=== PATIENT | male | born 1950 | race Caucasian/White ===

== ENCOUNTER → 2018-07-31 | Outpatient (REF) ==
[~2018-07-31] MED LIST: ASP81TEC PO; ATOR40TA PO; FINA5TAB6 PO; FISH OIL LIQUID PO; PRAV80TA2 PO; PRV20T PO; TRIA1CAP4 PO
--- NOTE | 2018-07-31 11:39 | Diagnostic Imaging Report ---
INDICATION: Injury to the left hand. TIME OF EXAM: 11:43 a.m. Three views of the left hand were obtained. In particular, the second MCP joint as well as the PIP joint of second finger are unremarkable. Carpus is unremarkable. Soft tissues are unremarkable. No fractures are seen. IMPRESSION: No acute bony abnormality is detected. Dictated by: Dictated on workstation # [id number]
== END | disposition home or self-care (01) ==
LOC: RAD 11:09
PROVIDERS: ATTEND Nurse Practitioner Family
CPT/HCPCS: 73130

== ENCOUNTER 2022-11-23 20:55 | Observation (INO) | payer MEDICARE, OTHER ==
[~2022-11-23] VITALS: Ht 185.4 cm; Wt 94.0 kg
--- NOTE | 2022-11-23 22:27 | ED General ---
General Chief Complaint: Neurological Problems Stated Complaint: WEAKNESSS Nursing Triage Note: Pt presents with increased weakness over the past 2 days. Pt arrived via wheelchair, friend with him states that they went to a farm show yesterday and he was able to walk around on his own. Today he is not able to stand unassisted. Pt also reports a new onset of incontinence that started about 2 weeks ago. Pt has hx of parkinsons and states he did not take his meds over the past couple of days due to not wanting to be "slowed down" while at the farm show. Pt's friend also states that he may have early dementia. Source of Information: Patient, Other (friend) Exam Limitations: No Limitations History of Present Illness Date Seen by Provider: November 23, 2022 Time Seen by Provider: 22:11 Initial Comments Brought here by a friend who reports that he has had increasing weakness over the last 2 days. The friend picked him up to take him to a steam show. 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 When the friend picked him up, he was able to walk around the do things on his own just fine but today he began to become progressively weak. Patient does have history of Parkinson's disease. During the course of the interview, patient admits that he has not been taking his medications because he did not want to be worried about an alarm on his watch to take the medicines and that includes his typical Parkinson's medicines. Reports eating okay and drinking okay. Does have history of urinary problems and does take medications for that. He has not had any of his Parkinson medicine today. Denies fever or chills. Denies nausea, vomiting, chest pain or breathing problems. Timing/Duration: 24 Hours, Getting Worse Severity: Moderate Associated Systoms: No Fever/Chills, No Nausea/Vomiting, No Shortness of Air; Weakness Allergies and Home Medications Allergies Coded Allergies: Penicillins (Verified Allergy, 06/05/12) Patient Home Medication List Home Medication List Reviewed: Yes Aspirin (Aspirin Ec 81 Mg) 81 Mg Tabec, 81 MG PO DAILY, (Reported) Entered as Reported by: MISTI CARROLL on 06/06/12 1137 Atorvastatin Calcium (Lipitor 40MG) 40 Mg Tablet, 40 MG PO HS, (Reported) Entered as Reported by: MISTI CARROLL on 06/06/12 1137 Finasteride (Finasteride) 5 Mg Tablet, 5 MG PO DAILY, (Reported) Entered as Reported by: BRENDA KLINE on 06/05/12 0953 Triamterene/Hydrochlorothiazid (Triamterene-Hctz 37.5-25 Mg Cp) 1 Each Capsule, 1 CAP PO DAILY, (Reported) Entered as Reported by: BRENDA KLINE on 06/05/12 0954 [Fish Oil Liquid] , 2 TSP PO DAILY, (Reported) Entered as Reported by: MISTI CARROLL on 06/06/12 1137 Review of Systems Review of Systems Constitutional: see HPI; No chills, No fever EENTM: no symptoms reported Respiratory: No cough, No short of breath Cardiovascular: no symptoms reported Gastrointestinal: No nausea, No vomiting Musculoskeletal: No back pain; muscle weakness Skin: no symptoms reported Psychiatric/Neurological: Weakness, Other (Some confusion reported by the friend) Past Ianazat-Aoxctc-Taskrv Hx Patient Social History Tobacco Use?: No Immunizations Up To Date Influenza Vaccine Up-to-Date: Yes; Up-to-Date Past Medical History Respiratory: No Cardiac: Yes High Cholesterol, Hypertension Neurological: Yes Parkinson's Disease Genitourinary: Yes Prostate Problems Family Medical History Reviewed and Corrections made Physical Exam Vital Signs Vital Signs - First Documented 11/23/22 22:03 Temp 36.6 Pulse 83 Resp 18 B/P (MAP) 143/86 (105) Capillary Refill : Less Than 3 Seconds Height, Weight, BMI Height: '" Weight: lbs. oz. kg; BMI Method: General Appearance: No Apparent Distress, WD/WN, Other (Weak appearing) HEENT: PERRL/EOMI, Pharynx Normal Neck: Non Tender, Supple Respiratory: Lungs Clear, Normal Breath Sounds Cardiovascular: Regular Rate, Rhythm, No Murmur Gastrointestinal: Non Tender, Soft Back: Normal Inspection, No CVA Tenderness, No Vertebral Tenderness Extremity: Other (Tremors to the upper extremities and appears weak and has weakness of all 4 extremities) Neurologic/Psychiatric: Alert, Other (Answer questions to person, place has some confusion with respect to time and situation.) Skin: Normal Color, Warm/Dry Progress/Results/Core Measures Suspected Sepsis SIRS Temperature: Pulse: 83 Respiratory Rate: 18 Laboratory Tests 11/23/22 22:49: White Blood Count 7.7 Blood Pressure 143 /86 Mean: 105 Laboratory Tests 11/23/22 22:49: Creatinine 1.17, Platelet Count 159, Total Bilirubin 0.8 Results/Orders Lab Results Laboratory Tests Test 11/23/22 22:49 11/24/22 02:08 Range/Units White Blood Count 7.7 4.3-11.0 10^3/uL Red Blood Count 4.73 4.30-5.52 10^6/uL Hemoglobin 14.6 13.3-17.7 g/dL Hematocrit 42 40-54 % Mean Corpuscular Volume 89 80-99 fL Mean Corpuscular Hemoglobin 31 25-34 pg Mean Corpuscular Hemoglobin Concent 35 32-36 g/dL Red Cell Distribution Width 13.0 10.0-14.5 % Platelet Count 159 130-400 10^3/uL Mean Platelet Volume 10.9 9.0-12.2 fL Immature Granulocyte % (Auto) 0 % Neutrophils (%) (Auto) 68 42-75 % Lymphocytes (%) (Auto) 19 12-44 % Monocytes (%) (Auto) 12 0-12 % Eosinophils (%) (Auto) 0 0-10 % Basophils (%) (Auto) 1 0-10 % Neutrophils # (Auto) 5.3 1.8-7.8 10^3/uL Lymphocytes # (Auto) 1.5 1.0-4.0 10^3/uL Monocytes # (Auto) 0.9 0.0-1.0 10^3/uL Eosinophils # (Auto) 0.0 0.0-0.3 10^3/uL Basophils # (Auto) 0.0 0.0-0.1 10^3/uL Immature Granulocyte # (Auto) 0.0 0.0-0.1 10^3/uL Sodium Level 144 135-145 MMOL/L Potassium Level 3.7 3.6-5.0 MMOL/L Chloride Level 109 H 98-107 MMOL/L Carbon Dioxide Level 17 L 21-32 MMOL/L Anion Gap 18 H 5-14 MMOL/L Blood Urea Nitrogen 18 7-18 MG/DL Creatinine 1.17 0.60-1.30 MG/DL Estimat Glomerular Filtration Rate 67 BUN/Creatinine Ratio 15 Glucose Level 101 70-105 MG/DL Calcium Level 9.3 8.5-10.1 MG/DL Corrected Calcium 9.2 8.5-10.1 MG/DL Magnesium Level 1.6 1.6-2.4 MG/DL Total Bilirubin 0.8 0.1-1.0 MG/DL Aspartate Amino Transf (AST/SGOT) 31 5-34 U/L Alanine Aminotransferase (ALT/SGPT) 19 0-55 U/L Alkaline Phosphatase 63 40-136 U/L Troponin I < 0.028 <0.028 NG/ML C-Reactive Protein High Sensitivity 0.07 0.00-0.50 MG/DL Total Protein 7.0 6.4-8.2 GM/DL Albumin 4.1 3.2-4.5 GM/DL Urine Color YELLOW Urine Clarity CLEAR Urine pH 6.0 5-9 Urine Specific [place] >=1.030 1.016-1.022 Urine Protein TRACE H NEGATIVE Urine Glucose (UA) NEGATIVE NEGATIVE Urine Ketones TRACE H NEGATIVE Urine Nitrite NEGATIVE NEGATIVE Urine Bilirubin 1+ H NEGATIVE Urine Urobilinogen 1.0 < = 1.0 MG/DL Urine Leukocyte Esterase NEGATIVE NEGATIVE Urine RBC (Auto) 3+ H NEGATIVE Urine RBC 50-100 H /HPF Urine WBC 0-2 /HPF Urine Crystals NONE /LPF Urine Bacteria NEGATIVE /HPF Urine Casts NONE /LPF Urine Mucus SMALL H /LPF Urine Culture Indicated NO My Orders Orders - KATY GONZALEZ MD Chest 1 View, Ap/Pa Only (11/23/22 22:25) Cbc With Automated Diff (11/23/22 22:25) Comprehensive Metabolic Panel (11/23/22 22:25) Hs C Reactive Protein (11/23/22 22:25) Magnesium (11/23/22 22:25) Troponin I Waqar (11/23/22 22:25) Ua Culture If Indicated (11/23/22 22:25) Ed Iv/Invasive Line Start (11/23/22 22:25) Ns Iv 500 Ml (Sodium Chloride 0.9%) (11/23/22 22:30) Medications Given in ED Current Medications Medications Dose Ordered Sig/Silvina Route Start Time Stop Time Status Last Admin Dose Admin Sodium Chloride 500 ml @ 0 mls/hr Q0M ONCE IV 11/23/22 22:30 11/23/22 22:31 DC 11/23/22 22:54 0 MLS/HR Vital Signs/I&O 11/23/22 22:03 Temp 36.6 Pulse 83 Resp 18 B/P (MAP) 143/86 (105) Capillary Refill : Less Than 3 Seconds Blood Pressure Mean: 105 Progress Note : Progress Note Seen and evaluated. Patient has been off of his Parkinson's medicines and this is likely part of the problem. We will check labs including CBC, CMP, troponin and magnesium and get EKG and chest x-ray. We will also check UA. Normal saline 500 mL bolus ordered. I will give him his normal dose of his Parkinson medicine from his bottle now which is the carbidopa levodopa 25/100 and we will give propranolol 30 mg p.o. now out of his bottle as well. He has 2 more prescriptions for tamsulosin and Myrbetriq and we will hold those for right now. Patient is very weak appearing. We will see how he does with fluids and his medication. Very likely admission at least for observation due to being off his his Parkinson's meds. Differential diagnosis includes dehydration, electrolyte abnormality, Parkinson's disease flare 0005: Chest x-ray reviewed and shows no obvious infiltrate on my interpretation. CBC and CMP showed no gross significant abnormalities and troponin is negative. We are still pending UA. 0302: UA does show ketones and blood although his cath UA. He does have known prostate problems. Overall he is doing a little bi t better after IV fluids but I believe he needs further fluid administration and continuation of his Parkinson med and we should see improvement. I did discuss the case with Dr. Spivey, on-call for [facility] who accepts patient for admission, observation status. Discussed with patient who agrees with plan. Patient requests full code. ECG Initial ECG Impression Date: November 23, 2022 Initial ECG Impression Time: 22:33 Initial ECG Rate: 93 Comment Sinus rhythm with left axis deviation. Normal W[place] interval and normal QRS duration. No evidence of ST elevation [place]. Interpreted by me. Diagnostic Imaging Diagonstic Imaging: Xray Plain Films/CT/US/NM/MRI: chest Comments No obvious infiltrate on my interpretation. Departure Communication (Admissions) Time/Spoke to Admitting Phy: 02:55 Impression Primary Impression: Generalized weakness Additional Impression: Parkinsons disease Disposition: ADMITTED INPATIENT Condition: Stable Admissions Decision to Admit Reason: Admit from ER (General) Decision to Admit/Date: November 24, 2022 Time/Decision to Admit Time: 02:55 Departure-Patient Inst. Referrals: JIN GRAVES DO (PCP/Family) Primary Care Physician KATY GONZALEZ MD November 23, 2022 22:27
[2022-11-23] MEDS ORDERED: morphine IMMEDIATE RELEASE 15 MG TABLET PO SCH (22:30)
[2022-11-23] MEDS ORDERED: NS IV 500 ML 500 ML IV ONE (22:30)
[2022-11-23 22:53] LABS: BASOPHILS % (AUTO) 1 % (0-10); EOSINOPHILS % (AUTO) 0 % (0-10); HEMATOCRIT 42 % (40-54); HEMOGLOBIN 14.6 g/dL (13.3-17.7); LYMPHOCYTES # (AUTO) 1.5 10^3/uL (1.0-4.0); LYMPHOCYTES % (AUTO) 19 % (12-44); MEAN CORPUSCULAR HEMOGLOBIN 31 pg (25-34); MEAN CORPUSCULAR HGB CONC 35 g/dL (32-36); MEAN CORPUSCULAR VOLUME 89 fL (80-99); MEAN PLATELET VOLUME 10.9 fL (9.0-12.2); MONOCYTES # (AUTO) 0.9 10^3/uL (0.0-1.0); MONOCYTES % (AUTO) 12 % (0-12); NEUTROPHILS # (AUTO) 5.3 10^3/uL (1.8-7.8); NEUTROPHILS % (AUTO) 68 % (42-75); PLATELET COUNT 159 10^3/uL (130-400); WHITE BLOOD COUNT 7.7 10^3/uL (4.3-11.0)
[2022-11-23 23:06] LABS: ALBUMIN 4.1 GM/DL (3.2-4.5); CHLORIDE 109 MMOL/L (98-107); POTASSIUM 3.7 MMOL/L (3.6-5.0); SODIUM 144 MMOL/L (135-145)
[2022-11-23 23:07] LABS: CALCIUM 9.3 MG/DL (8.5-10.1)
[2022-11-23 23:08] LABS: GLUCOSE 101 MG/DL (70-105)
[2022-11-23 23:10] LABS: BILIRUBIN,TOTAL 0.8 MG/DL (0.1-1.0); CARBON DIOXIDE 17 MMOL/L (21-32)
[2022-11-23 23:12] LABS: ALKALINE PHOSPHATASE 63 U/L (40-136); CREATININE SERUM 1.17 MG/DL (0.60-1.30); GFR ESTIMATED 67
[2022-11-23 23:13] LABS: BUN/CREATININE RATIO 15
[2022-11-23 23:15] LABS: ALANINE AMINOTRANSFERASE 19 U/L (0-55); MAGNESIUM 1.6 MG/DL (1.6-2.4)
[2022-11-24] VITALS (7 sets, daily range): BP systolic 112–143; BP diastolic 68–86
[2022-11-24 02:13] LABS: CLARITY,URINE CLEAR; COLOR,URINE YELLOW; GLUCOSE, URINE (UA) NEGATIVE (NEGATIVE); KETONES,URINE TRACE (NEGATIVE); LEUKOCYTE ESTERASE ,URINE NEGATIVE (NEGATIVE); NITRITE,URINE NEGATIVE (NEGATIVE); PROTEIN,URINE TRACE (NEGATIVE)
[2022-11-24 02:27] LABS: BACTERIA,URINE NEGATIVE /HPF; BILIRUBIN,URINE 1+ (NEGATIVE); RBC,URINE 50-100 /HPF; WBC,URINE 0-2 /HPF
[2022-11-24] MEDS ORDERED: ONDANSETRON 4 MG (ZOFRAN) ORAL DISSOLVE TAB PO PRN ×2 (04:30→11:15)
[2022-11-24] MEDS ORDERED: NALOXONE 0.4 MG/ML 1 ML (NARCAN) VIAL IV PRN (04:30)
[2022-11-24] MEDS ORDERED: diphenhydrAMINE 50 MG/ML INJ (BENADRYL) IVP PRN ×2 (04:30→11:15)
[2022-11-24] MEDS ORDERED: ONDANSETRON 4 MG/2 ML (SDV) Z0FRAN IV PRN ×2 (04:30→11:15)
[2022-11-24] MEDS ORDERED: MILK OF MAGNESIA 400 MG/5 ML 30 ML UDC PO PRN ×2 (04:30→11:15)
[2022-11-24] MEDS ORDERED: ANTACID SUSP 30 ML UDC (MYLANTA) PO PRN ×2 (04:30→11:15)
[2022-11-24] MEDS ORDERED: CALCIUM CARBONATE 500 MG (TUMS) TAB.CHEW PO PRN ×2 (04:30→11:15)
[2022-11-24] MEDS ORDERED: LACTULOSE SYRUP 10GM/15ML (ENULOSE) 30ML UDC PO PRN ×2 (04:30→11:15)
[2022-11-24] MEDS ORDERED: NS IV 1000 ML 1,000 ML IV SCH (04:30)
[2022-11-24] MEDS ORDERED: BISACODYL 10 MG SUPP (DULCOLAX) PR PRN ×2 (04:30→11:15)
[2022-11-24] MEDS ORDERED: diphenhydrAMINE 25 MG TAB (BENADRYL) PO PRN ×2 (04:30→11:15)
[2022-11-24] MEDS ORDERED: polyethylene glycoL POWDER 17 GM (MIRALAX) PACK PO PRN ×2 (04:30→11:15)
--- NOTE | 2022-11-24 07:02 | History & Physical-Hospitalist ---
History of Present Illness HPI/Chief Complaint CC: Weakness HPI: This is a 72yoWM clinic patient of [facility] who presented to the ER due to severe weakness. Apparently he has Parkinson's and dementia and did not take his PD meds due to not wanting to be interrupted at the farm show to take his scheduled meds. Currently he is resting in his chair. Labs stable. He will need PT OT and restating his regular PD meds but he does not have a list and unable to access a list from pharmacy.. Source: patient Exam Limitations: clinical condition Date Seen 11/24/22 Time Seen by a Provider: 11:00 Attending Physician Jersey Hassan DO PCP Admitting Physician: Manuela Spivey DO Attending Physician: Manuela Spivey DO Referring Physician Date of Admission November 24, 2022 at 03:32 Home Medications & Allergies Home Medications Reviewed patient Home Medication Reconciliation performed by pharmacy medication reconciliations electronics engineering technician and/or nursing. Patients Allergies have been reviewed. Allergies Allergies Coded Allergies Penicillins (Verified Allergy, Unknown, 11/24/22) Past Mtajtbv-Xkxjdd-Ozfqcr Hx Patient Social History Marrital Status: single Employed/Student: retired Tobacco Use?: No Use of E-Cig and/or Vaping dev: No Substance use?: No Alcohol Use?: No Pt feels they are or have been: No Immunizations Up To Date Date of Influenza Vaccine: May 05, 2012 Current Status Advance Directives: No Communicates: Verbally Primary Language: Angolan Preferred Spoken Language: Angolan Is interpretation needed?: No Sensory deficits: Vision impairment Implanted or Applied Medical D: None Past Medical History High Cholesterol, Hypertension Parkinson's Disease Prostate Problems Family Medical History Reviewed and Corrections made Review of Systems Constitutional: see HPI, malaise, weakness Physical Exam Physical Exam Vital Signs Vital Signs - First Documented 11/23/22 11/24/22 11/24/22 22:03 04:41 11:23 Temp 36.6 Pulse 83 Resp 18 B/P (MAP) 143/86 (105) Pulse Ox 95 O2 Delivery Room Air FiO2 21 Capillary Refill : Less Than 3 Seconds Height, Weight, BMI Height: '" Weight: lbs. oz. kg; 27.31 BMI Method: General Appearance: No Apparent Distress, Chronically ill Eyes: Right Eye Normal Inspection, Right Eye PERRL HEENT: PERRL/EOMI, Normal ENT Inspection, Pharynx Normal, Moist Mucous Membranes Neck: Full Range of Motion, Normal Inspection, Non Tender Respiratory: Chest Non Tender, Lungs Clear, Normal Breath Sounds, No Accessory Muscle Use, No Respiratory Distress Cardiovascular: Regular Rate, Rhythm, No Edema, No Gallop, No JVD, No Murmur, Normal Peripheral Pulses Gastrointestinal: Normal Bowel Sounds, No Organomegaly, No Pulsatile Mass, Non Tender, Soft Back: Normal Inspection, No CVA Tenderness, No Vertebral Tenderness Extremity: Normal Capillary Refill, Normal Inspection, Normal Range of Motion, Non Tender, No Calf Tenderness, No Pedal Edema Neurologic/Psychiatric: Alert, Abnormal Gait, Depressed Affect, Disoriented, Motor Weakness (2/5 all ext) Skin: Normal Color, Warm/Dry Lymphatic: No Adenopathy Results Results/Procedures Labs Laboratory Tests 11/23/22 22:49 Patient resulted labs reviewed. Assessment/Plan Admission Diagnosis Assessment: Severe weakness Parkinson's disease HTN HLP Plan: PT OT Placement? Home meds Admission Status: Observation MANUELA SPIVEY DO November 24, 2022 06:53
--- NOTE | 2022-11-24 07:19 | Diagnostic Imaging Report ---
INDICATION: Weakness COMPARISON: None available. TECHNIQUE: Single radiograph of the chest dated 11/23/2022. FINDINGS: The cardiac silhouette is within normal limits in size. No significant pulmonary vascular congestion. Low lung volumes without focal pulmonary opacity. No significant pleural effusion. No pneumothorax. No acute osseous abnormality. IMPRESSION: Low lung volumes without superimposed acute cardiopulmonary abnormality. Agree with preliminary interpretation. Dictated by: Dictated on workstation # [id number]
[2022-11-24] MEDS: SENNOSIDES 8.6 MG (SENOKOT) TAB PO SCH ×2 (08:08→21:18)
[2022-11-24] MEDS: DOCUSATE SODIUM 100 MG (COLACE) CAP PO SCH ×2 (08:08→21:18)
[2022-11-24] MEDS: SINEMET 25/100 (CARBIDOPA/LEVODOPA) TAB PO SCH ×3 (08:08→17:16)
[2022-11-24] MEDS: PROPRANOLOL 20 MG (INDERAL) TABLET PO SCH ×2 (08:08→21:18)
[2022-11-24] MEDS ORDERED: MELATONIN 3 MG TABLET PO PRN (11:15)
[2022-11-24] MEDS ORDERED: ACETAMINOPHEN 325 MG TABLET PO PRN (11:15)
[2022-11-24] MEDS ORDERED: HYDROmorphone 2 MG/ML VIAL (DILAUDID) IV PRN (11:15)
[2022-11-24] MEDS: ACETAMINOPHEN 325 MG TABLET PO PRN (12:05)
[2022-11-24] MEDS: ENOXAPARIN 40 MG/0.4 ML (LOVENOX) SYR SC SCH (12:09)
[2022-11-24] MEDS: TAMSULOSIN 0.4 MG (FLOMAX) CAP PO SCH (17:17)
[2022-11-24] MEDS ORDERED: SENNOSIDES 8.6 MG (SENOKOT) TAB PO SCH (21:00)
[2022-11-24] MEDS ORDERED: DOCUSATE SODIUM 100 MG (COLACE) CAP PO SCH (21:00)
[2022-11-25 04:30] VITALS: BP 137/81
[2022-11-25 05:51] LABS: BASOPHILS % (AUTO) 0 % (0-10); EOSINOPHILS # (AUTO) 0.1 10^3/uL (0.0-0.3); EOSINOPHILS % (AUTO) 1 % (0-10); HEMATOCRIT 46 % (40-54); HEMOGLOBIN 15.3 g/dL (13.3-17.7); LYMPHOCYTES # (AUTO) 1.1 10^3/uL (1.0-4.0); LYMPHOCYTES % (AUTO) 12 % (12-44); MEAN CORPUSCULAR HEMOGLOBIN 31 pg (25-34); MEAN CORPUSCULAR HGB CONC 34 g/dL (32-36); MEAN CORPUSCULAR VOLUME 91 fL (80-99); MEAN PLATELET VOLUME 11.5 fL (9.0-12.2); MONOCYTES # (AUTO) 0.7 10^3/uL (0.0-1.0); MONOCYTES % (AUTO) 8 % (0-12); NEUTROPHILS # (AUTO) 7.3 10^3/uL (1.8-7.8); NEUTROPHILS % (AUTO) 79 % (42-75); PLATELET COUNT 146 10^3/uL (130-400); WHITE BLOOD COUNT 9.2 10^3/uL (4.3-11.0)
[2022-11-25 06:00] LABS: ALBUMIN 3.9 GM/DL (3.2-4.5); POTASSIUM 3.9 MMOL/L (3.6-5.0)
[2022-11-25 06:01] LABS: CALCIUM 9.3 MG/DL (8.5-10.1)
[2022-11-25 06:02] LABS: TOTAL PROTEIN 6.6 GM/DL (6.4-8.2)
[2022-11-25 06:04] LABS: BILIRUBIN,TOTAL 0.9 MG/DL (0.1-1.0)
[2022-11-25 06:06] LABS: CREATININE SERUM 1.16 MG/DL (0.60-1.30)
[2022-11-25] MEDS: DOCUSATE SODIUM 100 MG (COLACE) CAP PO SCH ×2 (08:41→20:43)
[2022-11-25] MEDS: SENNOSIDES 8.6 MG (SENOKOT) TAB PO SCH ×2 (08:41→20:43)
[2022-11-25] MEDS: SINEMET 25/100 (CARBIDOPA/LEVODOPA) TAB PO SCH ×3 (08:41→17:12)
[2022-11-25] MEDS: PROPRANOLOL 20 MG (INDERAL) TABLET PO SCH ×2 (08:42→20:43)
[2022-11-25 08:45] VITALS: BP 137/75
--- NOTE | 2022-11-25 10:58 | Occupational Therapy Eval ---
OT Evaluation-General/PLF Medical Diagnosis Admission Date November 24, 2022 at 03:32 Medical Diagnosis: PD exacerbation Onset Date: November 24, 2022 Therapy Diagnosis Therapy Diagnosis: weakness Precautions Precautions/Isolations: Fall Prevention, Standard Precautions Weight Bear Status Weight Bearing Restriction: Weight Bearing/Tolerated Referral Referral Reason: Activity Tolerance, Self Care, Evaluation/Treatment Medical History Pertinent Medical History: Parkinson's Current History his is a 72yoWM clinic patient of [facility] who presented to the ER due to severe weakness. Apparently he has Parkinson's and dementia and did not take his PD meds due to not wanting to be interrupted at the farm show to take his scheduled meds. Reviewed History: No Social History Home: Single Level Current Living Status: Alone Entry Into Home: Stairs With Railing ADL-Prior Level of Function SCALE: Activities may be completed with or without assistive devices. 6-Cqqqccuzhd-wyyhieg completes the activity by him/herself with no assistance from a helper. 5-Set-up or Clean-up Assistance-helper sets up or cleans up; patient completes activity. [place] assists only prior to or following the activity. 4-Supervision or Touching Assistance-helper provides verbal cues and/or touching/steadying and/or contact guard assistance as patient completes activity. Assistance may be provided throughout the activity or intermittently. 3-Partial/Moderate Assistance-helper does LESS THAN HALF the effort. [place] lifts, holds or supports trunk or limbs, but provides less than half the effort. 2-Substantial/Maximal Assistance-helper does MORE THAN HALF the effort. [place] lifts or holds trunk or limbs and provides more than half the effort. 2-Noiggzeyc-ngnyov does ALL the effort. Patient does none of the effort to complete the activity. Or, the assistance of 2 or more helpers is required for the patient to complete the activity. If activity was not attempted, code reason: 7-Patient Refused. 9-Not Applicable-not attempted and the patient did not perform the activity before the current illness, exacerbation or injury. 10-Not Attempted due to Environmental Limitations-(lack of equipment, weather restraints, etc.). 88-Not Attempted due to Medical Conditions or Safety Concerns. Self Care: Independent Functional Cognition: Independent DME/Equipment Comments walker Drive Self: Yes OT Current Status Subjective Agreeable to OT, slow to respond Mental Status/Objective Patient Orientation: Person, Situation Current Upper Extremity ROM B UE WFLs Upper Extremity Coordination bradykinesia Upper Extremity Strength +3/5 BUE, senior marketing engineer 5/5 ADL-Treatment Eating (QC): 5 Oral Hygiene (QC): 4 Shower/Bathe Self (QC): 2 Upper Body Dressing (QC): 3 Lower Body Dressing (QC): 2 On/Off Footwear (QC): 1 Toileting Hygiene (QC): 2 Education OT Patient Education: Correct positioning, Disease process, Modified ADL techniques, Progress toward Goal/Update tx plan, Purpose of tx/functional activities, Safety issues, Transfer techniques, Use of adapted equipment Teaching Recipient: Patient Teaching Methods: Demonstration, Discussion Response to Teaching: Reinforcement Needed OT Fpc Goals Fpc Goals Time Frame: December 07, 2022 Eating (QC): 6 Oral Hygiene (QC): 6 Toileting Hygiene (QC): 6 Shower/Bathe Self (QC): 6 Upper Body Dressing (QC): 6 Lower Body Dressing (QC): 6 On/Off Footwear (QC): 6 1=Demonstrate adherence to instructed precautions during ADL tasks. 2=Patient will verbalize/demonstrate understanding of assistive devices/modifications for ADL. 3=Patient will improve strength/tolerance for activity to enable patient to perform ADL's. OT Education/Plan Problem List/Assessment Assessment: Decreased Activ Tolerance, Impaired Coordination, Impaired Funct Balance, Impaired Self-Care Skills Discharge Recommendations Plan/Recommendations: Continue POC Therapy Discharge Recommendati: Post Acute OT Treatment Plan/Plan of Care Treatment,Training & Education: Yes Patient would benefit from OT for education, treatment and training to promote independence in ADL's, mobility, safety and/or upper extremity function for ADL's. Plan of Care: ADL Retraining, Concurrent Therapy, Functional Mobility, Group Exercise/Act as Ind, UE Funct Exercise/Act, UE Neuromus Re-Ed/Coord Treatment Duration: December 07, 2022 Frequency: 3 times per week (3-5 times per week) Estimated Hrs Per Day: .25 hour per day Agreement: Yes Rehab Potential: Fair Time Start Time: 09:10 Stop Time: 09:28 DATE: November 25, 2022 Total Time Billed (hr/min): 18 Billed Treatment Time EVM 18 min KRISHAN JONES OT November 25, 2022 10:58
--- NOTE | 2022-11-25 11:09 | Physical Therapy Evaluation ---
PT Evaluation-General Medical Diagnosis Admission Date November 24, 2022 at 03:32 Medical Diagnosis: generalized weakness/Parkinson's Onset Date: November 24, 2022 Therapy Diagnosis Therapy Diagnosis: generalized weakness/debility Precautions Precautions/Isolations: Fall Prevention, Standard Precautions Referral Physician: Allyssa Reason for Referral: Evaluation/Treatment Medical History Pertinent Medical History: Dementia, HTN, Parkinson's Current History ER secondary to weakness Reviewed History: Yes Social History Home: Single Level Current Living Status: Alone Prior Prior Level of Function SCALE: Activities may be completed with or without assistive devices. 4-Qqoiwwlxys-exikppt completes the activity by him/herself with no assistance from a helper. 5-Set-up or Clean-up Assistance-helper sets up or cleans up; patient completes activity. [place] assists only prior to or following the activity. 4-Supervision or Touching Assistance-helper provides verbal cues and/or touching/steadying and/or contact guard assistance as patient completes activity. Assistance may be provided throughout the activity or intermittently. 3-Partial/Moderate Assistance-helper does LESS THAN HALF the effort. [place] lifts, holds or supports trunk or limbs, but provides less than half the effort. 2-Substantial/Maximal Assistance-helper does MORE THAN HALF the effort. [place] lifts or holds trunk or limbs and provides more than half the effort. 0-Ealyyxrxp-wckapa does ALL the effort. Patient does none of the effort to complete the activity. Or, the assistance of 2 or more helpers is required for the patient to complete the activity. If activity was not attempted, code reason: 7-Patient Refused. 9-Not Applicable-not attempted and the patient did not perform the activity before the current illness, exacerbation or injury. 10-Not Attempted due to Environmental Limitations-(lack of equipment, weather restraints, etc.). 88-Not Attempted due to Medical Conditions or Safety Concerns. Bed Mobility: 6 Transfers (B,C,W/C): 6 Gait: 6 Indoor Mobility (Ambulation): Independent Prior Devices Use: None drives (all information per patient) PT Evaluation-Current Subjective Patient agrees to PT. Objective Patient Orientation: Person ROM/Strength ROM Lower Extremities bilateral LE WFL Strength Lower Extremities 3/5 grossly bilateral LE all planes Integumentary/Posture Bladder Incontinence: Yes Posture trunk and bilateral knee flexed posture Neuromuscular (Tone, Coordination, Reflexes) tremors/ataxia/Parkinson's Sensory Vision: Wears Glasses Hearing: Functional Transfers Lying to Sitting/Side of Bed(Q: 2 Sit to Stand (QC): 2 Chair/Yvo-en-Sqyzt Xfer(QC): 3 Toilet Transfer (QC): 3 Gait Mode of Locomotion: Walk Anticipated Mode of Locomotion: Walk Walk 10 feet (QC): 3 Walk 50 ft with 2 Turns(QC): 3 Walk 150 ft (QC): 88 Distance: 50' Gait Assistive Device: FWW Comments/Gait Description Parkinson's gait/difficulty initiating sequence Balance Sitting Static: Fair Sitting Dynamic: Fair Standing Static: Poor Standing Dynamic: Poor Assessment/Needs Patient will benefit from skilled PT to address functional strength and mobility to improve current LOF. Patient demonstrates severely impaired mobility and Poor balance. Rehab Potential: Guarded PT Longterm Goals Longterm Goals PT Traffic Personnel Supervisor Goals Time Frame: December 14, 2022 Roll Left & Right (QC): 4 Sit to Lying (QC): 4 Lying-Sitting on Side/Bed(QC): 4 Sit to Stand (QC): 4 Chair/Njc-my-Uyuej Xfer(QC): 4 Toilet Transfer (QC): 4 Walk 10 feet (QC): 4 Walk 50ft with 2 Turns (QC): 4 Walk 150 ft (QC): 4 PT Plan Problem List Problem List: Activity Tolerance, Functional Strength, Safety, Balance, Gait, Transfer, Bed Mobility Treatment/Plan Treatment Plan: Continue Plan of Care Treatment Plan: Bed Mobility, Education, Functional Activity [place], Functional Strength, Gait, Safety, Therapeutic Exercise, Transfers Treatment Duration: December 14, 2022 Frequency: 6 times per week Estimated Hrs Per Day: .25 hour per day Time Time In: 910 Time Out: 928 DATE: November 25, 2022 Total Billed Treatment Time: 18 Total Billed Treatment 1 visit [facility] 18 min KOBE GAVIN PT November 25, 2022 11:09
[2022-11-25 11:26] VITALS: BP 117/65
[2022-11-25] MEDS: ENOXAPARIN 40 MG/0.4 ML (LOVENOX) SYR SC SCH (11:30)
--- NOTE | 2022-11-25 14:27 | Progress Note ---
Subjective Subjective/Events-last exam Patient states that he is feeling some better but still very weak. States that he normally does not need a walker at baseline. Tolerating PO diet. Review of Systems General: Fatigue Pulmonary: No Dyspnea, No Cough Cardiovascular: No: Chest Pain, Palpitations, Edema Gastrointestinal: No: Nausea, Vomiting, Abdominal Pain, Diarrhea, Constipation Neurological: Weakness, Incoordination; No: Confusion Objective Exam Last Set of Vital Signs Vital Signs Date Time Temp Pulse Resp B/P (MAP) Pulse Ox O2 Delivery O2 Flow Rate FiO2 11/25/22 11:26 37.4 74 19 117/65 (82) 94 Room Air 11/24/22 11:23 21 Capillary Refill : Less Than 3 Seconds I&O Intake and Output 11/25/22 00:00 Intake Total 1580 ml Output Total 780 ml Balance 800 ml Intake Oral 1100 ml IV Total 480 ml Output Urine Total 780 ml Daily Weight Change Yes, 14-23 lbs General: Alert, Oriented X3, Other (diffuse trimmers) Lungs: Clear to Auscultation, Normal Air Movement Heart: Regular Rate, No Murmurs Abdomen: Soft, No Tenderness Extremities: No Edema, No Tenderness/Swelling Neuro: Normal Speech, Cranial Nerves 3-12 NL Results/Procedures Lab Laboratory Tests 11/25/22 05:03: White Blood Count 9.2, Red Blood Count 5.00, Hemoglobin 15.3, Hematocrit 46, Mean Corpuscular Volume 91, Mean Corpuscular Hemoglobin 31, Mean Corpuscular H emoglobin Concent 34, Red Cell Distribution Width 13.0, Platelet Count 146, Mean Platelet Volume 11.5, Immature Granulocyte % (Auto) 0, Neutrophils (%) (Auto) 79H, Lymphocytes (%) (Auto) 12, Monocytes (%) (Auto) 8, Eosinophils (%) (Auto) 1, Basophils (%) (Auto) 0, Neutrophils # (Auto) 7.3, Lymphocytes # (Auto) 1.1, Monocytes # (Auto) 0.7, Eosinophils # (Auto) 0.1, Basophils # (Auto) 0.0, Immature Granulocyte # (Auto) 0.0, Sodium Level 144, Potassium Level 3.9, Chloride Level 109H, Carbon Dioxide Level 22, Anion Gap 13, Blood Urea Nitrogen 19H, Creatinine 1.16, Estimat Glomerular Filtration Rate 68, BUN/Creatinine Ratio 16, Glucose Level 104, Calcium Level 9.3, Corrected Calcium 9.4, Total Bilirubin 0.9, Aspartate Amino Transf (AST/SGOT) 49H, Alanine Aminotransferase (ALT/SGPT) 13, Alkaline Phosphatase 70, Total Protein 6.6, Albumin 3.9 Assessment/Plan Assessment/Plan (1) Generalized weakness Status: Acute Assessment & Plan: 11/25: IRF referral placed (2) Parkinsons disease Status: Chronic Assessment & Plan: 11/25: Restarted home meds (3) BPH (benign prostatic hyperplasia) Status: Chronic Assessment & Plan: 11/25: Restart home meds (4) HTN (hypertension) Status: Chronic (5) HLD (hyperlipidemia) Status: Chronic FANNIE PABLO MD November 25, 2022 14:27
[2022-11-25 15:55] VITALS: BP 124/73
[2022-11-25] MEDS ORDERED: PROP60TA17 PO (16:15)
[2022-11-25] MEDS ORDERED: MIRA25TA PO (16:15)
[2022-11-25] MEDS ORDERED: TMSL.4C PO (16:15)
[2022-11-25] MEDS ORDERED: LOVA20TA2 PO (16:15)
[2022-11-25] MEDS ORDERED: CARB1TAB32 PO (16:15)
[2022-11-25] MEDS ORDERED: LISI10TA25 PO (16:18)
[2022-11-25] MEDS: TAMSULOSIN 0.4 MG (FLOMAX) CAP PO SCH (17:12)
[2022-11-25 19:53] VITALS: BP 128/66
[2022-11-26] VITALS: BP 137/70
[2022-11-26 04:00] VITALS: BP 139/76
[2022-11-26 05:54] LABS: BASOPHILS % (AUTO) 0 % (0-10); HEMOGLOBIN 15.5 g/dL (13.3-17.7); MEAN CORPUSCULAR HEMOGLOBIN 31 pg (25-34)
[2022-11-26 05:56] LABS: EOSINOPHILS # (AUTO) 0.1 10^3/uL (0.0-0.3); EOSINOPHILS % (AUTO) 1 % (0-10); HEMATOCRIT 45 % (40-54); LYMPHOCYTES # (AUTO) 1.3 10^3/uL (1.0-4.0); LYMPHOCYTES % (AUTO) 19 % (12-44); MEAN CORPUSCULAR HGB CONC 34 g/dL (32-36); MEAN CORPUSCULAR VOLUME 91 fL (80-99); MEAN PLATELET VOLUME 11.3 fL (9.0-12.2); MONOCYTES # (AUTO) 0.7 10^3/uL (0.0-1.0); MONOCYTES % (AUTO) 10 % (0-12); NEUTROPHILS # (AUTO) 4.5 10^3/uL (1.8-7.8); NEUTROPHILS % (AUTO) 69 % (42-75); PLATELET COUNT 134 10^3/uL (130-400); WHITE BLOOD COUNT 6.6 10^3/uL (4.3-11.0)
[2022-11-26 06:00] LABS: SMEAR SCAN COMMENT YES
[2022-11-26 06:12] LABS: ALBUMIN 3.8 GM/DL (3.2-4.5); POTASSIUM 3.4 MMOL/L (3.6-5.0)
[2022-11-26 06:13] LABS: CALCIUM 9.2 MG/DL (8.5-10.1)
[2022-11-26 06:14] LABS: TOTAL PROTEIN 6.5 GM/DL (6.4-8.2)
[2022-11-26 06:16] LABS: BILIRUBIN,TOTAL 0.7 MG/DL (0.1-1.0)
[2022-11-26 06:18] LABS: CREATININE SERUM 1.06 MG/DL (0.60-1.30)
[2022-11-26] MEDS: SENNOSIDES 8.6 MG (SENOKOT) TAB PO SCH ×2 (08:03→20:04)
[2022-11-26] MEDS: DOCUSATE SODIUM 100 MG (COLACE) CAP PO SCH ×2 (08:03→20:04)
[2022-11-26] MEDS: PROPRANOLOL 20 MG (INDERAL) TABLET PO SCH ×2 (08:03→20:04)
[2022-11-26] MEDS: SINEMET 25/100 (CARBIDOPA/LEVODOPA) TAB PO SCH ×3 (08:03→18:13)
[2022-11-26 08:19] VITALS: BP 123/82
--- NOTE | 2022-11-26 10:52 | Physical Therapy Daily Note ---
PT Daily Note-Current Subjective Patient more alert and oriented on this date. Agrees to therapy. Pain Section J - Health Conditions 1. Rarely or not at all 2. Occasionally 3. Frequently 4. Almost constantly 8. Unable to answer Pain Effect on Sleep: 1 Pain Interference with Therapy: 1 Pain Interference w/Day-to-Day: 1 Mental Status Patient Orientation: Person Transfers SCALE: Activities may be completed with or without assistive devices. 2-Oeorhdxhxw-lmmmcsn completes the activity by him/herself with no assistance from a helper. 5-Set-up or Clean-up Assistance-helper sets up or cleans up; patient completes activity. [place] assists only prior to or following the activity. 4-Supervision or Touching Assistance-helper provides verbal cues and/or touching/steadying and/or contact guard assistance as patient completes acti vity. Assistance may be provided throughout the activity or intermittently. 3-Partial/Moderate Assistance-helper does LESS THAN HALF the effort. Garland lifts, holds or supports trunk or limbs, but provides less than half the effort. 2-Substantial/Maximal Assistance-helper does MORE THAN HALF the effort. [place] lifts or holds trunk or limbs and provides more than half the effort. 4-Lamtdbajp-hfdnri does ALL the effort. Patient does none of the effort to complete the activity. Or, the assistance of 2 or more helpers is required for the patient to complete the activity. If activity was not attempted, code reason: 7-Patient Refused. 9-Not Applicable-not attempted and the patient did not perform the activity before the current illness, exacerbation or injury. 10-Not Attempted due to Environmental Limitations-(lack of equipment, weather restraints, etc.). 88-Not Attempted due to Medical Conditions or Safety Concerns. Sit to Stand (QC): 3 Chair/Zxi-tx-Qmpub Xfer(QC): 3 Toilet Transfer (QC): 3 Gait Training Distance: 250' Walk 10 feet (QC): 3 Walk 50 ft with 2 Turns(QC): 3 Walk 150 ft (QC): 3 Gait Assistive Device: FWW VC's for gait sequence (Parkinson's)/improved step length and melina Exercises Standing: Dynamic Reaching Ex (at sink to brush teeth and hair with OT address ADL's), Weight shifts Assessment Patient much improved on this date. Continues to require min to mod assist with all functional mobility and dynamic/static standing balance with ADL exercises. Increase activity as tolerated by patient. PT Knock Out Hand Goals Knock Out Hand Goals PT Mcfp Goals Time Frame: December 14, 2022 Roll Left & Right (QC): 4 Sit to Lying (QC): 4 Lying-Sitting on Side/Bed(QC): 4 Sit to Stand (QC): 4 Chair/Hin-zq-Fuzvs Xfer(QC): 4 Toilet Transfer (QC): 4 Walk 10 feet (QC): 4 Walk 50ft with 2 Turns (QC): 4 Walk 150 ft (QC): 4 PT Plan Treatment/Plan Treatment Plan: Continue Plan of Care Treatment Plan: Bed Mobility, Education, Functional Activity Kiarra, Functional Strength, Gait, Safety, Therapeutic Exercise, Transfers Treatment Duration: December 14, 2022 Frequency: 6 times per week Estimated Hrs Per Day: .25 hour per day Time Time In: 931 Time Out: 959 DATE: November 26, 2022 Total Billed Treatment Time: 28 Total Billed Treatment 1 visit FA 16 min GT 12 min KOBE GAVIN PT November 26, 2022 10:52
--- NOTE | 2022-11-26 11:16 | Occupational Ther Daily Note ---
OT Current Status-Daily Note Subjective Up in chair and agreeable to OT ADL-Treatment Therapy Code Descriptions/Definitions Functional [place] Measure: 0=Not Assessed/NA 4=Minimal Assistance 1=Total Assistance 5=Supervision or Setup 2=Maximal Assistance 6=Modified [place] 3=Moderate Assistance 7=Complete IndependenceSCALE: Activities may be completed with or without assistive devices. 2-Cdlgytmsyk-dfjfrug completes the activity by him/herself with no assistance from a helper. 5-Set-up or Clean-up Assistance-helper sets up or cleans up; patient completes activity. Sophia assists only prior to or following the activity. 4-Supervision or Touching Assistance-helper provides verbal cues and/or touching/steadying and/or contact guard assistance as patient completes activity. Assistance may be provided throughout the activity or intermittently. 3-Partial/Moderate Assistance-helper does LESS THAN HALF the effort. Sophia lifts, holds or supports trunk or limbs, but provides less than half the effort. 2-Substantial/Maximal Assistance-helper does MORE THAN HALF the effort. Sophia lifts or holds trunk or limbs and provides more than half the effort. 7-Cdovnaesb-jbwiar does ALL the effort. Patient does none of the effort to complete the activity. Or, the assistance of 2 or more helpers is required for the patient to complete the activity. If activity was not attempted, code reason: 7-Patient Refused. 9-Not Applicable-not attempted and the patient did not perform the activity bef ore the current illness, exacerbation or injury. 10-Not Attempted due to Environmental Limitations-(lack of equipment, weather r estraints, etc.). 88-Not Attempted due to Medical Conditions or Safety Concerns. Eating (QC): 5 Oral Hygiene (QC): 4 Shower/Bathe Self (QC): 7 Upper Body Dressing (QC): 3 Lower Body Dressing (QC): 3 On/Off Footwear: 3 Toileting Hygiene (QC): 3 (Assitance to luanne position over toilet and into toilet for aiming purposes and reducing urine on floor) Toilet Transfer (QC): 4 LSVT methods for ADL intervention, rocking, force and speed inhibited w/ Bradykinesia, rocking momentum in bathroom to transer off toilet second attempt patient performs 50% improvement , use of powerful ROM to insert BUE into gown sleeves and use of BIG exaggerated marching steps to continue w/ mobility w/ FWW, continues wtih poor trunk rotation and, door thresholds and surface texture changes Education OT Patient Education: Correct positioning, Disease process, Exercise program, Modified ADL techniques, Progress toward Goal/Update tx plan, Purpose of tx/functional activities, Reviewed precautions, Rehab process, Safety issues, Transfer techniques Teaching Recipient: Patient Teaching Methods: Demonstration, Discussion, Audiovisual Response to Teaching: Reinforcement Needed OT Custodial Goals Market Research Worker Goals Time Frame: December 07, 2022 Eating (QC): 6 Oral Hygiene (QC): 6 Toileting Hygiene (QC): 6 Shower/Bathe Self (QC): 6 Upper Body Dressing (QC): 6 Lower Body Dressing (QC): 6 On/Off Footwear (QC): 6 1=Demonstrate adherence to instructed precautions during ADL tasks. 2=Patient will verbalize/demonstrate understanding of assistive devices/modifications for ADL. 3=Patient will improve strength/tolerance for activity to enable patient to perform ADL's. OT Education/Plan Problem List/Assessment Assessment: Decreased Activ Tolerance, Decreased Safety Aware, Impaired Coordination, Impaired Funct Balance, Impaired Self-Care Skills Discharge Recommendations Plan/Recommendations: Continue POC Treatment Plan/Plan of Care Patient would benefit from OT for education, treatment and training to promote independence in ADL's, mobility, safety and/or upper extremity function for ADL's. Plan of Care: ADL Retraining, Concurrent Therapy, Functional Mobility, Group Exercise/Act as Ind, UE Funct Exercise/Act, UE Neuromus Re-Ed/Coord Treatment Duration: December 07, 2022 Frequency: 3 times per week (3-5 times per week) Estimated Hrs Per Day: .25 hour per day Agreement: Yes Rehab Potential: Fair Time Start Time: 09:32 Stop Time: 09:59 DATE: November 26, 2022 Total Time Billed (hr/min): 27 Billed Treatment Time ADL 2 27 min KRISHAN JONES OT November 26, 2022 11:16
[2022-11-26 11:39] VITALS: BP 113/74
[2022-11-26] MEDS: ENOXAPARIN 40 MG/0.4 ML (LOVENOX) SYR SC SCH (12:36)
[2022-11-26] MEDS: LORazepam 0.5 MG (ATIVAN) TABLET PO NR ×2 (16:43→17:29)
--- NOTE | 2022-11-26 17:18 | Progress Note ---
Subjective Subjective/Events-last exam States that he feels much better today. Was up with PT. Tolerating PO diet. Review of Systems General: Fatigue, Malaise Pulmonary: No Dyspnea, No Cough Cardiovascular: No: Chest Pain, Palpitations, Edema Gastrointestinal: No: Nausea, Vomiting, Abdominal Pain, Diarrhea, Constipation Musculoskeletal: back pain Neurological: Weakness, Incoordination Objective Exam Last Set of Vital Signs Vital Signs Date Time Temp Pulse Resp B/P (MAP) Pulse Ox O2 Delivery O2 Flow Rate FiO2 11/26/22 11:39 36.7 62 18 113/74 (87) 93 Room Air 11/24/22 11:23 21 Capillary Refill : Less Than 3 Seconds I&O Intake and Output 11/26/22 00:00 Intake Total 1420 ml Output Total 1170 ml Balance 250 ml Intake Oral 1420 ml Output Urine Total 1170 ml General: Alert, Oriented X3, No Acute Distress Lungs: Clear to Auscultation, Normal Air Movement Heart: Regular Rate, No Murmurs Abdomen: Normal Bowel Sounds, Soft, No Tenderness, No Masses Extremities: No Edema, No Tenderness/Swelling Neuro: Other (baseline rolling tremor in hands/arms bilaterally) Psych/Mental Status: Mental Status NL, Mood NL Results/Procedures Lab Laboratory Tests 11/26/22 05:30: White Blood Count 6.6, Red Blood Count 4.98, Hemoglobin 15.5, Hematocrit 45, Mean Corpuscular Volume 91, Mean Corpuscular Hemoglobin 31, Mean Corpuscular Hemoglobin Concent 34, Red Cell Distribution Width 12.9, Platelet Count 134, Mean Platelet Volume 11.3, Immature Granulocyte % (Auto) 0, Neutrophils (%) (Auto) 69, Lymphocytes (%) (Auto) 19, Monocytes (%) (Auto) 10, Eosinophils (%) (Auto) 1, Basophils (%) (Auto) 0, Neutrophils # (Auto) 4.5, Lymphocytes # (Auto) 1.3, Monocytes # (Auto) 0.7, Eosinophils # (Auto) 0.1, Basophils # (Auto) 0.0, Immature Granulocyte # (Auto) 0.0, Percent Immature Platelet Fraction 6.0, Sodium Level 143, Potassium Level 3.4L, Chloride Level 108H, Carbon Dioxide Level 24, Anion Gap 11, Blood Urea Nitrogen 19H, Creatinine 1.06, Estimat Glomerular Filtration Rate 75, BUN/Creatinine Ratio 18, Glucose Level 83, Calcium Level 9.2, Corrected Calcium 9.4, Total Bilirubin 0.7, Aspartate Amino Transf (AST/SGOT) 40H, Alanine Aminotransferase (ALT/SGPT) 25, Alkaline Phosphatase 64, Total Protein 6.5, Albumin 3.8, Smear Scan YES Assessment/Plan Assessment/Plan (1) Generalized weakness Status: Acute Assessment & Plan: 11/25: IRF referral placed 11/26: Waiting on acceptance and evaluation, patient medically stable (2) Parkinsons disease Status: Chronic Assessment & Plan: 11/25: Restarted home meds (3) BPH (benign prostatic hyperplasia) Status: Chronic Assessment & Plan: 11/25: Restart home meds (4) HTN (hypertension) Status: Chronic (5) HLD (hyperlipidemia) Status: Chronic FANNIE PABLO MD November 26, 2022 17:17
[2022-11-26] MEDS: TAMSULOSIN 0.4 MG (FLOMAX) CAP PO SCH (18:13)
[2022-11-26 19:29] VITALS: BP 132/70
[2022-11-26] MEDS: MELATONIN 3 MG TABLET PO PRN (20:04)
[2022-11-26 23:10] VITALS: BP 126/84
[2022-11-27] VITALS (7 sets, daily range): BP systolic 110–157; BP diastolic 49–80
[2022-11-27 04:49] LABS: BASOPHILS % (AUTO) 0 % (0-10); MONOCYTES % (AUTO) 11 % (0-12)
[2022-11-27 04:50] LABS: EOSINOPHILS # (AUTO) 0.1 10^3/uL (0.0-0.3); EOSINOPHILS % (AUTO) 2 % (0-10); HEMATOCRIT 44 % (40-54); HEMOGLOBIN 14.9 g/dL (13.3-17.7); LYMPHOCYTES # (AUTO) 1.4 10^3/uL (1.0-4.0); LYMPHOCYTES % (AUTO) 23 % (12-44); MEAN CORPUSCULAR HEMOGLOBIN 31 pg (25-34); MEAN CORPUSCULAR HGB CONC 34 g/dL (32-36); MEAN CORPUSCULAR VOLUME 91 fL (80-99); MEAN PLATELET VOLUME 11.3 fL (9.0-12.2); MONOCYTES # (AUTO) 0.6 10^3/uL (0.0-1.0); NEUTROPHILS # (AUTO) 3.7 10^3/uL (1.8-7.8); NEUTROPHILS % (AUTO) 64 % (42-75); PLATELET COUNT 128 10^3/uL (130-400); WHITE BLOOD COUNT 5.8 10^3/uL (4.3-11.0)
[2022-11-27 04:59] LABS: ALBUMIN 3.7 GM/DL (3.2-4.5)
[2022-11-27 05:00] LABS: POTASSIUM 3.4 MMOL/L (3.6-5.0)
[2022-11-27 05:01] LABS: CALCIUM 9.1 MG/DL (8.5-10.1)
[2022-11-27 05:02] LABS: TOTAL PROTEIN 6.3 GM/DL (6.4-8.2)
[2022-11-27 05:04] LABS: BILIRUBIN,TOTAL 0.6 MG/DL (0.1-1.0)
[2022-11-27 05:06] LABS: CREATININE SERUM 1.06 MG/DL (0.60-1.30)
[2022-11-27] MEDS: SINEMET 25/100 (CARBIDOPA/LEVODOPA) TAB PO SCH ×3 (09:42→17:38)
[2022-11-27] MEDS: ENOXAPARIN 40 MG/0.4 ML (LOVENOX) SYR SC SCH (09:42)
[2022-11-27] MEDS: PROPRANOLOL 20 MG (INDERAL) TABLET PO SCH ×2 (09:43→19:54)
[2022-11-27] MEDS: DOCUSATE SODIUM 100 MG (COLACE) CAP PO SCH ×2 (09:43→19:55)
[2022-11-27] MEDS: SENNOSIDES 8.6 MG (SENOKOT) TAB PO SCH ×2 (09:43→19:54)
--- NOTE | 2022-11-27 11:15 | Occ Therapy Progress Note ---
Therapy Progress Note Patient transferred rooms for telesitter monitor and shared in person sitter d/t increased combative behavior and sleeplessness. RN reports patient sleeping at his time and OT to return first available or tomorrow KRISHAN JONES OT November 27, 2022 11:15
[2022-11-27] MEDS: ACETAMINOPHEN 325 MG TABLET PO PRN ×2 (13:12→17:40)
--- NOTE | 2022-11-27 15:53 | Physical Therapy Daily Note ---
PT Daily Note-Current Subjective Patient lying supine in bed upon PT arrival, agreeable to treatment. patient rates pain at 0/10 currently. Pain Section J - Health Conditions 1. Rarely or not at all 2. Occasionally 3. Frequently 4. Almost constantly 8. Unable to answer Pain Effect on Sleep: 1 Pain Interference with Therapy: 1 Pain Interference w/Day-to-Day: 1 Transfers SCALE: Activities may be completed with or without assistive devices. 1-Tbgfueiklq-phxyynp completes the activity by him/herself with no assistance from a helper. 5-Set-up or Clean-up Assistance-helper sets up or cleans up; patient completes activity. Anthon assists only prior to or following the activity. 4-Supervision or Touching Assistance-helper provides verbal cues and/or touching/steadying and/or contact guard assistance as patient completes activity. Assistance may be provided throughout the activity or intermittently. 3-Partial/Moderate Assistance-helper does LESS THAN HALF the effort. Anthon lif ts, holds or supports trunk or limbs, but provides less than half the effort. 2-Substantial/Maximal Assistance-helper does MORE THAN HALF the effort. Anthon lifts or holds trunk or limbs and provides more than half the effort. 0-Nwxuvsnxo-mqspwd does ALL the effort. Patient does none of the effort to complete the activity. Or, the assistance of 2 or more helpers is required for the patient to complete the activity. If activity was not attempted, code reason: 7-Patient Refused. 9-Not Applicable-not attempted and the patient did not perform the activity before the current illness, exacerbation or injury. 10-Not Attempted due to Environmental Limitations-(lack of equipment, weather restraints, etc.). 88-Not Attempted due to Medical Conditions or Safety Concerns. Roll Left & Right (QC): 3 Sit to Lying (QC): 3 Lying to Sitting/Side of Bed(Q: 3 Sit to Stand (QC): 3 Chair/Vkn-gx-Cmstl Xfer(QC): 3 Gait Training Does the Patient Walk?: Yes Distance: 300' Walk 10 feet (QC): 4 Walk 50 ft with 2 Turns(QC): 4 Walk 150 ft (QC): 4 Gait Persons Needed: 1 Gait Assistive Device: FWW Assessment Current Status: Good Progress Patient tolerated treatment well. Requires min/mod A for all bed mobility and transfers. He ambulates 300 feet with FWW, with SBA and verbal cues for safety, progression, control of FWW. Patient in chair post treatment with all needs met nursing notified, call light in reach and sitter outside of room. PT [facility] Goals [facility] Goals PT Trap Operator Goals Time Frame: December 14, 2022 Roll Left & Right (QC): 4 Sit to Lying (QC): 4 Lying-Sitting on Side/Bed(QC): 4 Sit to Stand (QC): 4 Chair/Zdf-oz-Jvepz Xfer(QC): 4 Toilet Transfer (QC): 4 Walk 10 feet (QC): 4 Walk 50ft with 2 Turns (QC): 4 Walk 150 ft (QC): 4 PT Plan Treatment/Plan Treatment Plan: Continue Plan of Care Treatment Plan: Bed Mobility, Education, Functional Activity Kiarra, Functional Strength, Gait, Safety, Therapeutic Exercise, Transfers Treatment Duration: December 14, 2022 Frequency: 6 times per week Estimated Hrs Per Day: .25 hour per day Safety Risks/Education Patient Education: Gait Training, Transfer Techniques Teaching Recipient: Patient Teaching Methods: Demonstration, Discussion Response to Teaching: Reinforcement Needed Time Time In: 1125 Time Out: 1150 DATE: November 27, 2022 Total Billed Treatment Time: 25 Total Billed Treatment Visit, Gait (2) JAYLYN SANTANA PT November 27, 2022 15:53
--- NOTE | 2022-11-27 16:30 | Progress Note ---
Subjective Subjective/Events-last exam Patient doing well this AM. Denies any pain. Review of Systems General: Fatigue, Malaise Pulmonary: No Dyspnea, No Cough Cardiovascular: No: Chest Pain, Palpitations, Edema Gastrointestinal: No: Nausea, Vomiting, Abdominal Pain, Diarrhea, Constipation Neurological: Weakness, Incoordination Objective Exam Last Set of Vital Signs Vital Signs Date Time Temp Pulse Resp B/P (MAP) Pulse Ox O2 Delivery O2 Flow Rate FiO2 11/27/22 15:23 37.2 73 19 130/80 (97) 91 Room Air 11/24/22 11:23 21 Capillary Refill : Less Than 3 Seconds I&O Intake and Output 11/26/22 23:59 Intake Total 1620 ml Output Total 1205 ml Balance 415 ml Intake Oral 1620 ml Output Urine Total 1205 ml General: Alert, No Acute Distress Lungs: Clear to Auscultation, Normal Air Movement Heart: Regular Rate, No Murmurs Abdomen: Normal Bowel Sounds, Soft, No Tenderness, No Masses Extremities: No Edema, No Tenderness/Swelling Neuro: Other (bilateral UE tremors) Results/Procedures Lab Laboratory Tests 11/27/22 04:27: White Blood Count 5.8, Red Blood Count 4.85, Hemoglobin 14.9, Hematocrit 44, Mean Corpuscular Volume 91, Mean Corpuscular Hemoglobin 31, Mean Corpuscular Hemoglobin Concent 34, Red Cell Distribution Width 12.9, Platelet Count 128L, Mean Platelet Volume 11.3, Immature Granulocyte % (Auto) 0, Neutrophils (%) (Auto) 64, Lymphocytes (%) (Auto) 23, Monocytes (%) (Auto) 11, Eosinophils (%) (Auto) 2, Basophils (%) (Auto) 0, Neutrophils # (Auto) 3.7, Lymphocytes # (Auto) 1.4, Monocytes # (Auto) 0.6, Eosinophils # (Auto) 0.1, Basophils # (Auto) 0.0, Immature Granulocyte # (Auto) 0.0, Percent Immature Platelet Fraction 5.4, Sodium Level 142, Potassium Level 3.4L, Chloride Level 107, Carbon Dioxide Level 25, Anion Gap 10, Blood Urea Nitrogen 16, Creatinine 1.06, Estimat Glomerular Filtration Rate 75, BUN/Creatinine Ratio 15, Glucose Level 87, Calcium Level 9.1, Corrected Calcium 9.3, Total Bilirubin 0.6, Aspartate Amino Transf (AST/SGOT) 35H, Alanine Aminotransferase (ALT/SGPT) 17, Alkaline Phosphatase 59, Total Protein 6.3L, Albumin 3.7 Assessment/Plan Assessment/Plan (1) Generalized weakness Status: Acute Assessment & Plan: 11/25: IRF referral placed 11/26: Waiting on acceptance and evaluation, patient medically stable 11/27: IRF acceptance pending, continue with PT (2) Parkinsons disease Status: Chronic Assessment & Plan: 11/25: Restarted home meds (3) BPH (benign prostatic hyperplasia) Status: Chronic Assessment & Plan: 11/25: Restart home meds (4) HTN (hypertension) Status: Chronic (5) HLD (hyperlipidemia) Status: Chronic FANNIE PABLO MD November 27, 2022 16:30
[2022-11-27] MEDS: TAMSULOSIN 0.4 MG (FLOMAX) CAP PO SCH (17:38)
[2022-11-27] MEDS: MELATONIN 3 MG TABLET PO PRN (19:54)
[2022-11-28] MEDS: ACETAMINOPHEN 325 MG TABLET PO PRN ×2 (03:14→08:51)
[2022-11-28 05:51] LABS: BASOPHILS % (AUTO) 0 % (0-10); EOSINOPHILS # (AUTO) 0.1 10^3/uL (0.0-0.3); EOSINOPHILS % (AUTO) 1 % (0-10); HEMATOCRIT 43 % (40-54); HEMOGLOBIN 14.6 g/dL (13.3-17.7); LYMPHOCYTES # (AUTO) 1.1 10^3/uL (1.0-4.0); LYMPHOCYTES % (AUTO) 15 % (12-44); MEAN CORPUSCULAR HEMOGLOBIN 31 pg (25-34); MEAN CORPUSCULAR HGB CONC 34 g/dL (32-36); MEAN CORPUSCULAR VOLUME 90 fL (80-99); MEAN PLATELET VOLUME 10.9 fL (9.0-12.2); MONOCYTES # (AUTO) 0.7 10^3/uL (0.0-1.0); MONOCYTES % (AUTO) 9 % (0-12); NEUTROPHILS # (AUTO) 5.3 10^3/uL (1.8-7.8); NEUTROPHILS % (AUTO) 74 % (42-75); PLATELET COUNT 144 10^3/uL (130-400); WHITE BLOOD COUNT 7.2 10^3/uL (4.3-11.0)
[2022-11-28 06:02] LABS: ALBUMIN 3.8 GM/DL (3.2-4.5); POTASSIUM 3.8 MMOL/L (3.6-5.0)
[2022-11-28 06:04] LABS: TOTAL PROTEIN 6.6 GM/DL (6.4-8.2)
[2022-11-28 06:06] LABS: BILIRUBIN,TOTAL 0.6 MG/DL (0.1-1.0)
[2022-11-28 06:08] LABS: CREATININE SERUM 1.04 MG/DL (0.60-1.30)
[2022-11-28 07:07] VITALS: BP 122/75
[2022-11-28] MEDS: DOCUSATE SODIUM 100 MG (COLACE) CAP PO SCH ×2 (08:45→20:22)
[2022-11-28] MEDS: SINEMET 25/100 (CARBIDOPA/LEVODOPA) TAB PO SCH ×4 (08:45→18:37)
[2022-11-28] MEDS: PROPRANOLOL 20 MG (INDERAL) TABLET PO SCH ×2 (08:45→20:21)
[2022-11-28] MEDS: SENNOSIDES 8.6 MG (SENOKOT) TAB PO SCH ×2 (08:45→20:21)
--- NOTE | 2022-11-28 11:02 | Occupational Ther Daily Note ---
OT Current Status-Daily Note Subjective Up in recliner w/ live sitter present, agreeable to OT Mental Status/Objective Patient Orientation: Person ADL-Treatment Therapy Code Descriptions/Definitions Functional [place] Measure: 0=Not Assessed/NA 4=Minimal Assistance 1=Total Assistance 5=Supervision or Setup 2=Maximal Assistance 6=Modified [place] 3=Moderate Assistance 7=Complete IndependenceSCALE: Activities may be completed with or without assistive devices. 9-Uubupopift-lwwndkf completes the activity by him/herself with no assistance from a helper. 5-Set-up or Clean-up Assistance-helper sets up or cleans up; patient completes activity. Macy assists only prior to or following the activity. 4-Supervision or Touching Assistance-helper provides verbal cues and/or touching/steadying and/or contact guard assistance as patient completes activity. Assistance may be provided throughout the activity or intermittently. 3-Partial/Moderate Assistance-helper does LESS THAN HALF the effort. Macy lifts, holds or supports trunk or limbs, but provides less than half the effort. 2-Substantial/Maximal Assistance-helper does MORE THAN HALF the effort. Macy lifts or holds trunk or limbs and provides more than half the effort. 3-Hqgsmkeuy-bduuqi does ALL the effort. Patient does none of the effort to complete the activity. Or, the assistance of 2 or more helpers is required for the patient to complete the activity. If activity was not attempted, code reason: 7-Patient Refused. 9-Not Applicable-not attempted and the patient did not perform the activity before the current illness, exacerbation or injury. 10-Not Attempted due to Environmental Limitations-(lack of equipment, weather restraints, etc.). 88-Not Attempted due to Medical Conditions or Safety Concerns. Eating (QC): 4 (hand tremors) Oral Hygiene (QC): 4 (hand termors, instruction to push toothbrush forcefully thorugh plastic wrap from base of handle) Shower/Bathe Self (QC): 7 Upper Body Dressing (QC): 7 Lower Body Dressing (QC): 7 On/Off Footwear: 7 Toileting Hygiene (QC): 7 Toilet Transfer (QC): 7 oral care performed in [facility] impaired d/t poor propcioception, and sensation . Other Treatment LSVT rocking sequences for transfer interventions. Patient has difficulty with location of lever of recliner and continually reaches fro bed and linen despite hand over hand placement on lever. Demonstrated confusion w/ "PUSH" PULL of lever.Noted rigidity in torso and increased tone with lateral flexion and rotation of torso to perform chair mobile to prepare for sit/stand transfers Education OT Patient Education: Correct positioning, Disease process, Exercise program, Modified ADL techniques, Purpose of tx/functional activities, Safety issues, Transfer techniques Teaching Recipient: Patient Teaching Methods: Demonstration, Discussion Response to Teaching: Reinforcement Needed OT Clinic Mgr Goals Clinic Mgr Goals Time Frame: December 07, 2022 Eating (QC): 6 Oral Hygiene (QC): 6 Toileting Hygiene (QC): 6 Shower/Bathe Self (QC): 6 Upper Body Dressing (QC): 6 Lower Body Dressing (QC): 6 On/Off Footwear (QC): 6 1=Demonstrate adherence to instructed precautions during ADL tasks. 2=Patient will verbalize/demonstrate understanding of assistive devices/modifications for ADL. 3=Patient will improve strength/tolerance for activity to enable patient to perform ADL's. OT Education/Plan Problem List/Assessment Assessment: Decreased Activ Tolerance, Decreased Safety Aware, Decreased UE Strength, Impaired Coordination, Impaired Funct Balance, Impaired Self-Care Skills Discharge Recommendations Plan/Recommendations: Continue POC Treatment Plan/Plan of Care Patient would benefit from OT for education, treatment and training to promote independence in ADL's, mobility, safety and/or upper extremity function for ADL's. Plan of Care: ADL Retraining, Concurrent Therapy, Functional Mobility, Group Exercise/Act as Ind, UE Funct Exercise/Act, UE Neuromus Re-Ed/Coord Treatment Duration: December 07, 2022 Frequency: 3 times per week (3-5 times per week) Estimated Hrs Per Day: .25 hour per day Agreement: Yes Rehab Potential: Fair Time Start Time: 08:30 Stop Time: 08:53 DATE: November 28, 2022 Total Time Billed (hr/min): 23 Billed Treatment Time ADL 1, EX 1 23 min KRISHAN JONES OT November 28, 2022 11:02
[2022-11-28] MEDS: ENOXAPARIN 40 MG/0.4 ML (LOVENOX) SYR SC SCH (11:41)
[2022-11-28 13:28] VITALS: BP 122/75
--- NOTE | 2022-11-28 14:46 | Physical Therapy Daily Note ---
PT Daily Note-Current Subjective Patient lying supine in bed upon PT arrival, agreeable to treatment. Patient rates pain at 0/10 currently. Pain Section J - Health Conditions 1. Rarely or not at all 2. Occasionally 3. Frequently 4. Almost constantly 8. Unable to answer Pain Effect on Sleep: 1 Pain Interference with Therapy: 1 Pain Interference w/Day-to-Day: 1 Mental Status Patient Orientation: Person Transfers SCALE: Activities may be completed with or without assistive devices. 7-Gvwdsrnybu-hvwbhsf completes the activity by him/herself with no assistance from a helper. 5-Set-up or Clean-up Assistance-helper sets up or cleans up; patient completes activity. [place] assists only prior to or following the activity. 4-Supervision or Touching Assistance-helper provides verbal cues and/or touching/steadying and/or contact guard assistance as patient completes activity. Assistance may be provided throughout the activity or intermittently. 3-Partial/Moderate Assistance-helper does LESS THAN HALF the effort. [place] lifts, holds or supports trunk or limbs, but provides less than half the effort. 2-Substantial/Maximal Assistance-helper does MORE THAN HALF the effort. [place] lifts or holds trunk or limbs and provides more than half the effort. 5-Ngngjxuhi-dyptdo does ALL the effort. Patient does none of the effort to compl ete the activity. Or, the assistance of 2 or more helpers is required for the patient to complete the activity. If activity was not attempted, code reason: 7-Patient Refused. 9-Not Applicable-not attempted and the patient did not perform the activity before the current illness, exacerbation or injury. 10-Not Attempted due to Environmental Limitations-(lack of equipment, weather restraints, etc.). 88-Not Attempted due to Medical Conditions or Safety Concerns. Roll Left & Right (QC): 3 Sit to Lying (QC): 3 Lying to Sitting/Side of Bed(Q: 3 Sit to Stand (QC): 3 Chair/Izp-vd-Fltpm Xfer(QC): 3 Gait Training Does the Patient Walk?: Yes Distance: 1000 feet Walk 10 feet (QC): 4 Walk 50 ft with 2 Turns(QC): 4 Walk 150 ft (QC): 4 Gait Persons Needed: 1 Gait Assistive Device: FWW Assessment Current Status: Excellent Progress Patient demonstrates much improved gait this session. He performs all observed transfers with SBA. Patient ambulates 1000 feet with FWW, with SBA and significantly decreased verbal cues for posture and increased step length. Patient requires use of the BR post treatment and upon returning to the chair demonstrates difficulty problem solving how to safely turn himself around with his FWW to sit in the chair. He attempts to sit on the arm of the chair and then requires moderate verbal cues for step by step performance of the task to sit safely. Physician in the room during this part of the treatment. Patient in chair post treatment with call light in reach, sitter and physician in the room, all needs met. PT It Network Architect Goals It Network Architect Goals PT Fpc Goals Time Frame: December 14, 2022 Roll Left & Right (QC): 4 Sit to Lying (QC): 4 Lying-Sitting on Side/Bed(QC): 4 Sit to Stand (QC): 4 Chair/Asd-tp-Limgb Xfer(QC): 4 Toilet Transfer (QC): 4 Walk 10 feet (QC): 4 Walk 50ft with 2 Turns (QC): 4 Walk 150 ft (QC): 4 PT Plan Treatment/Plan Treatment Plan: Continue Plan of Care Treatment Plan: Bed Mobility, Education, Functional Activity Kiarra, Functional Strength, Gait, Safety, Therapeutic Exercise, Transfers Treatment Duration: December 14, 2022 Frequency: 6 times per week Estimated Hrs Per Day: .25 hour per day Safety Risks/Education Patient Education: Gait Training, Transfer Techniques Teaching Recipient: Patient Teaching Methods: Demonstration, Discussion Response to Teaching: Verbalize Understanding, Return Demonstration Time Time In: 1010 Time Out: 1039 DATE: November 28, 2022 Total Billed Treatment Time: 29 Total Billed Treatment Visit, Gait (2) JAYLYN SANTANA PT November 28, 2022 14:46
[2022-11-28 15:02] VITALS: BP 109/69
--- NOTE | 2022-11-28 16:36 | Progress Note ---
Subjective Subjective/Events-last exam No concern this AM. Tolerating PO diet. ambulating with walker and requires ques. Review of Systems General: Fatigue Pulmonary: No Dyspnea, No Cough Cardiovascular: Edema; No: Chest Pain, Palpitations Gastrointestinal: No: Nausea, Vomiting, Abdominal Pain, Diarrhea, Constipation Neurological: Weakness, Incoordination; No: Confusion Objective Exam Last Set of Vital Signs Vital Signs Date Time Temp Pulse Resp B/P (MAP) Pulse Ox O2 Delivery O2 Flow Rate FiO2 11/28/22 15:02 37.0 16 109/69 (82) 94 Room Air 11/28/22 13:28 68 21 11/28/22 11:00 0.00 Capillary Refill : Less Than 3 Seconds I&O Intake and Output 11/28/22 00:00 Intake Total 1560 ml Output Total 1800 ml Balance -240 ml Intake Oral 1560 ml Output Urine Total 1800 ml General: Alert, Oriented X3, No Acute Distress Lungs: Clear to Auscultation, Normal Air Movement Heart: Regular Rate, No Murmurs Abdomen: Normal Bowel Sounds, Soft, No Tenderness Extremities: Other (trace swelling bilaterally) Results/Procedures Lab Laboratory Tests 11/28/22 05:39: White Blood Count 7.2, Red Blood Count 4.74, Hemoglobin 14.6, Hematocrit 43, Mean Corpuscular Volume 90, Mean Corpuscular Hemoglobin 31, Mean Corpuscular Hemoglobin Concent 34, Red Cell Distribution Width 12.7, Platelet Count 144, Mean Platelet Volume 10.9, Immature Granulocyte % (Auto) 0, Neutrophils (%) (Auto) 74, Lymphocytes (%) (Auto) 15, Monocytes (%) (Auto) 9, Eosinophils (%) (Auto) 1, Basophils (%) (Auto) 0, Neutrophils # (Auto) 5.3, Lymphocytes # (Auto) 1.1, Monocytes # (Auto) 0.7, Eosinophils # (Auto) 0.1, Basophils # (Auto) 0.0, Immature Granulocyte # (Auto) 0.0, Sodium Level 138, Potassium Level 3.8, Chloride Level 108H, Carbon Dioxide Level 22, Anion Gap 8, Blood Urea Nitrogen 18, Creatinine 1.04, Estimat Glomerular Filtration Rate 77, BUN/Creatinine Ratio 17, Glucose Level 103, Calcium Level 9.0, Corrected Calcium 9.2, Total Bilirubin 0.6, Aspartate Amino Transf (AST/SGOT) 33, Alanine Aminotransferase (ALT/SGPT) 23, Alkaline Phosphatase 61, Total Protein 6.6, Albumin 3.8 Assessment/Plan Assessment/Plan (1) Generalized weakness Status: Acute Assessment & Plan: 11/25: IRF referral placed 11/26: Waiting on acceptance and evaluation, patient medically stable 11/27: IRF acceptance pending, continue with PT 11/28: Awaiting IRF, if not accepted patient will need SNF (2) Parkinsons disease Status: Chronic Assessment & Plan: 11/25: Restarted home meds (3) BPH (benign prostatic hyperplasia) Status: Chronic Assessment & Plan: 11/25: Restart home meds (4) HTN (hypertension) Status: Chronic (5) HLD (hyperlipidemia) Status: Chronic FANNIE PABLO MD November 28, 2022 16:36
[2022-11-28] MEDS: TAMSULOSIN 0.4 MG (FLOMAX) CAP PO SCH ×2 (17:07→18:37)
[2022-11-28] MEDS ORDERED: HALOPERIDOL 5 MG/ML (HALDOL) VIAL IM NR (18:45)
[2022-11-28] MEDS: MELATONIN 3 MG TABLET PO PRN (20:21)
[2022-11-29 05:32] LABS: BASOPHILS % (AUTO) 1 % (0-10); EOSINOPHILS # (AUTO) 0.1 10^3/uL (0.0-0.3); EOSINOPHILS % (AUTO) 1 % (0-10); HEMATOCRIT 49 % (40-54); HEMOGLOBIN 16.7 g/dL (13.3-17.7); LYMPHOCYTES # (AUTO) 1.3 10^3/uL (1.0-4.0); LYMPHOCYTES % (AUTO) 22 % (12-44); MEAN CORPUSCULAR HEMOGLOBIN 31 pg (25-34); MEAN CORPUSCULAR HGB CONC 34 g/dL (32-36); MEAN CORPUSCULAR VOLUME 90 fL (80-99); MEAN PLATELET VOLUME 11.1 fL (9.0-12.2); MONOCYTES # (AUTO) 0.7 10^3/uL (0.0-1.0); MONOCYTES % (AUTO) 12 % (0-12); NEUTROPHILS # (AUTO) 3.7 10^3/uL (1.8-7.8); NEUTROPHILS % (AUTO) 64 % (42-75); PLATELET COUNT 160 10^3/uL (130-400); WHITE BLOOD COUNT 5.8 10^3/uL (4.3-11.0)
[2022-11-29 05:54] LABS: ALBUMIN 4.1 GM/DL (3.2-4.5); BILIRUBIN,TOTAL 0.6 MG/DL (0.1-1.0); CALCIUM 9.5 MG/DL (8.5-10.1); CREATININE SERUM 1.04 MG/DL (0.60-1.30); POTASSIUM 4.6 MMOL/L (3.6-5.0); TOTAL PROTEIN 7.6 GM/DL (6.4-8.2)
[2022-11-29 07:30] VITALS: BP 131/84
[2022-11-29] MEDS: DOCUSATE SODIUM 100 MG (COLACE) CAP PO SCH ×2 (07:58→19:35)
[2022-11-29] MEDS: SINEMET 25/100 (CARBIDOPA/LEVODOPA) TAB PO SCH ×3 (07:58→18:22)
[2022-11-29] MEDS: PROPRANOLOL 20 MG (INDERAL) TABLET PO SCH ×2 (07:59→19:37)
[2022-11-29] MEDS: SENNOSIDES 8.6 MG (SENOKOT) TAB PO SCH ×2 (08:07→19:36)
--- NOTE | 2022-11-29 11:17 | Occupational Ther Daily Note ---
OT Current Status-Daily Note Subjective Patient is very confused, hallucinating and episodes of paranoia Mental Status/Objective Patient Orientation: Person ADL-Treatment Therapy Code Descriptions/Definitions Functional Stephens Measure: 0=Not Assessed/NA 4=Minimal Assistance 1=Total Assistance 5=Supervision or Setup 2=Maximal Assistance 6=Modified [place] 3=Moderate Assistance 7=Complete IndependenceSCALE: Activities may be completed with or without assistive devices. 6-Afeluzzcyi-gmwrlsf completes the activity by him/herself with no assistance from a helper. 5-Set-up or Clean-up Assistance-helper sets up or cleans up; patient completes activity. [place] assists only prior to or following the activity. 4-Supervision or Touching Assistance-helper provides verbal cues and/or touching/steadying and/or contact guard assistance as patient completes activity. Assistance may be provided throughout the activity or intermittently. 3-Partial/Moderate Assistance-helper does LESS THAN HALF the effort. [place] lifts, holds or supports trunk or limbs, but provides less than half the effort. 2-Substantial/Maximal Assistance-helper does MORE THAN HALF the effort. [place] lifts or holds trunk or limbs and provides more than half the effort. 3-Gjzqsvjva-jidcha does ALL the effort. Patient does none of the effort to complete the activity. Or, the assistance of 2 or more helpers is required for the patient to complete the activity. If activity was not attempted, code reason: 7-Patient Refused. 9-Not Applicable-not attempted and the patient did not perform the activity before the current illness, exacerbation or injury. 10-Not Attempted due to Environmental Limitations-(lack of equipment, weather restraints, etc.). 88-Not Attempted due to Medical Conditions or Safety Concerns. Eating (QC): 3 Oral Hygiene (QC): 3 (extreme tremors) Bathing Location: L Arm, R Arm, Chest Shower/Bathe Self (QC): 2 Upper Body Dressing (QC): 2 Lower Body Dressing (QC): 7 On/Off Footwear: 1 Toileting Hygiene (QC): 1 Toilet Transfer (QC): 2 Education OT Patient Education: Correct positioning, Disease process, Modified ADL techniques, Progress toward Goal/Update tx plan, Purpose of tx/functional activities, Reviewed precautions, Rehab process, Safety issues, Transfer techniques Teaching Recipient: Patient Teaching Methods: Demonstration, Discussion Response to Teaching: Unable to Return Demonstration, Unable to Comprehend, Reinforcement Needed OT Senior Care Goals Plastic Tubing Insulation Supervisor Goals Time Frame: December 07, 2022 Eating (QC): 6 Oral Hygiene (QC): 6 Toileting Hygiene (QC): 6 Shower/Bathe Self (QC): 6 Upper Body Dressing (QC): 6 Lower Body Dressing (QC): 6 On/Off Footwear (QC): 6 1=Demonstrate adherence to instructed precautions during ADL tasks. 2=Patient will verbalize/demonstrate understanding of assistive devices/modifications for ADL. 3=Patient will improve strength/tolerance for activity to enable patient to perform ADL's. OT Education/Plan Problem List/Assessment Assessment: Decreased Activ Tolerance, Decreased Safety Aware, Impaired Cognition, Impaired Coordination, Impaired Funct Balance, Impaired Self-Care Skills Discharge Recommendations Plan/Recommendations: Continue POC Treatment Plan/Plan of Care Treatment,Training & Education: Yes Patient would benefit from OT for education, treatment and training to promote independence in ADL's, mobility, safety and/or upper extremity function for ADL's. Plan of Care: ADL Retraining, Concurrent Therapy, Functional Mobility, Group Exercise/Act as Ind, UE Funct Exercise/Act, UE Neuromus Re-Ed/Coord Treatment Duration: December 07, 2022 Frequency: 3 times per week (3-5 times per week) Estimated Hrs Per Day: .25 hour per day Agreement: Yes Rehab Potential: Fair Time Start Time: 09:50 Stop Time: 09:10 DATE: November 29, 2022 Total Time Billed (hr/min): 20 Billed Treatment Time ADL 20 min KRISHAN JONES OT November 29, 2022 11:17
--- NOTE | 2022-11-29 12:35 | Progress Note - Hospitalist ---
Subjective HPI/CC On Admission Date Seen by Provider: November 29, 2022 Time Seen by Provider: 12:30 CC: Weakness HPI: This is a 72yoWM clinic patient of [facility] who presented to the ER due to severe weakness. Apparently he has Parkinson's and dementia and did not take his PD meds due to [place]s. Currently he is resting in his chair. Labs stable. He will need PT OT and restating his regular PD meds but he does not have a list and unable to access a list from pharmacy.. Subjective/Events-last exam No major issues Sedated No falls Slow recovery Review of Systems General: Fatigue, Malaise Neurological: Confusion Objective Exam Vital Signs Vital Signs Date Time Temp Pulse Resp B/P (MAP) Pulse Ox O2 Delivery O2 Flow Rate FiO2 11/29/22 19:41 87 18 143/74 (97) 94 Room Air 0.00 0.00 11/29/22 15:40 36.6 11/28/22 13:28 21 Capillary Refill : Less Than 3 Seconds General Appearance: No Apparent Distress, WD/WN, Chronically ill Respiratory: Lungs Clear, Normal Breath Sounds Cardiovascular: Regular Rate, Rhythm Neurologic/Psychiatric: Disoriented Results/Procedures Lab Laboratory Tests 11/29/22 05:22 Patient resulted labs reviewed. Assessment/Plan Assessment and Plan Assess & Plan/Chief Complaint Assessment: Severe weakness Parkinson's disease HTN HLP Hallucinations Plan: PT OT Monitor closely BRANDON BURTON DO November 29, 2022 12:35
[2022-11-29] MEDS: ENOXAPARIN 40 MG/0.4 ML (LOVENOX) SYR SC SCH (12:52)
--- NOTE | 2022-11-29 15:13 | Physical Therapy Daily Note ---
PT Daily Note-Current Subjective Patient sitting in chair upon PT arrival, agreeable to treatment, however patient very resistive to current situation and therapists educating him on his current whereabouts. OT in the room upon PT arrival finishing with bed bath. Pain Section J - Health Conditions 1. Rarely or not at all 2. Occasionally 3. Frequently 4. Almost constantly 8. Unable to answer Pain Effect on Sleep: 1 Pain Interference with Therapy: 1 Pain Interference w/Day-to-Day: 1 Mental Status Patient Orientation: Person Transfers SCALE: Activities may be completed with or without assistive devices. 5-Tvpvdbveqn-lmnkgmq completes the activity by him/herself with no assistance from a helper. 5-Set-up or Clean-up Assistance-helper sets up or cleans up; patient completes activity. [place] assists only prior to or following the activity. 4-Supervision or Touching Assistance-helper provides verbal cues and/or touching/steadying and/or contact guard assistance as patient completes activity. Assistance may be provided throughout the activity or intermittently. 3-Partial/Moderate Assistance-helper does LESS THAN HALF the effort. [place] lifts, holds or supports trunk or limbs, but provides less than half the effort. 2-Substantial/Maximal Assistance-helper does MORE THAN HALF the effort. [place] lifts or holds trunk or limbs and provides more than half the effort. 9-Cqdgwdbsd-vyzqdo does ALL the effort. Patient does none of the effort to complete the activity. Or, the assistance of 2 or more helpers is required for the patient to complete the activity. If activity was not attempted, code reason: 7-Patient Refused. 9-Not Applicable-not attempted and the patient did not perform the activity befo re the current illness, exacerbation or injury. 10-Not Attempted due to Environmental Limitations-(lack of equipment, weather re straints, etc.). 88-Not Attempted due to Medical Conditions or Safety Concerns. Sit to Stand (QC): 3 Gait Training Does the Patient Walk?: Yes Distance: 350 feet Walk 10 feet (QC): 4 Walk 50 ft with 2 Turns(QC): 4 Walk 150 ft (QC): 4 Gait Persons Needed: 1 Gait Assistive Device: FWW Assessment Current Status: Poor Progress Patient demonstrates significant cognitive decline during todays treatment. Patient demonstrates significant difficulty following commands. Patient performs all observed transfers with min A. Patient ambulates 350 feet with FWW, with min A and frequent verbal cues for progression, posture, safety and control of FWW. Patient in chair post treatment with all needs met, nurse notified, call light in hands and chair alarm activated. PT Plant Anatomy Teacher Goals Plant Anatomy Teacher Goals PT Mcfp Goals Time Frame: December 14, 2022 Roll Left & Right (QC): 4 Sit to Lying (QC): 4 Lying-Sitting on Side/Bed(QC): 4 Sit to Stand (QC): 4 Chair/Ays-xr-Qwlkc Xfer(QC): 4 Toilet Transfer (QC): 4 Walk 10 feet (QC): 4 Walk 50ft with 2 Turns (QC): 4 Walk 150 ft (QC): 4 PT Plan Treatment/Plan Treatment Plan: Continue Plan of Care Treatment Plan: Bed Mobility, Education, Functional Activity Kiarra, Functional Strength, Gait, Safety, Therapeutic Exercise, Transfers Treatment Duration: December 14, 2022 Frequency: 6 times per week Estimated Hrs Per Day: .25 hour per day Safety Risks/Education Patient Education: Gait Training, Transfer Techniques Teaching Recipient: Patient Teaching Methods: Demonstration, Discussion Response to Teaching: Reinforcement Needed Time Time In: 1012 Time Out: 1037 DATE: November 29, 2022 Total Billed Treatment Time: 25 Total Billed Treatment Visit, Gait (2) JAYLYN SANTANA PT November 29, 2022 15:13
[2022-11-29 15:40] VITALS: BP 135/73
[2022-11-29] MEDS: TAMSULOSIN 0.4 MG (FLOMAX) CAP PO SCH (18:22)
[2022-11-29 19:35] VITALS: BP 143/74
[2022-11-29] MEDS: MELATONIN 3 MG TABLET PO PRN (19:36)
[2022-11-29 19:41] VITALS: BP 143/74
[2022-11-29 23:05] VITALS: BP 115/68
[2022-11-30 05:45] LABS: BASOPHILS % (AUTO) 1 % (0-10); EOSINOPHILS # (AUTO) 0.1 10^3/uL (0.0-0.3); EOSINOPHILS % (AUTO) 1 % (0-10); HEMATOCRIT 47 % (40-54); HEMOGLOBIN 15.8 g/dL (13.3-17.7); LYMPHOCYTES # (AUTO) 1.5 10^3/uL (1.0-4.0); LYMPHOCYTES % (AUTO) 27 % (12-44); MEAN CORPUSCULAR HEMOGLOBIN 31 pg (25-34); MEAN CORPUSCULAR HGB CONC 34 g/dL (32-36); MEAN CORPUSCULAR VOLUME 90 fL (80-99); MEAN PLATELET VOLUME 10.7 fL (9.0-12.2); MONOCYTES # (AUTO) 0.6 10^3/uL (0.0-1.0); MONOCYTES % (AUTO) 11 % (0-12); NEUTROPHILS # (AUTO) 3.4 10^3/uL (1.8-7.8); NEUTROPHILS % (AUTO) 60 % (42-75); PLATELET COUNT 177 10^3/uL (130-400); WHITE BLOOD COUNT 5.6 10^3/uL (4.3-11.0)
--- NOTE | 2022-11-30 06:02 | Progress Note - Hospitalist ---
Subjective HPI/CC On Admission Date Seen by Provider: November 30, 2022 Time Seen by Provider: 09:00 CC: Weakness HPI: This is a 72yoWM clinic patient of [facility] who presented to the ER due to severe weakness. Apparently he has Parkinson's and dementia and did not take his PD meds due to [place] meds. Currently he is resting in his chair. Labs stable. He will need PT OT and restating his regular PD meds but he does not have a list and unable to access a list from pharmacy.. Objective Exam Vital Signs Vital Signs Date Time Temp Pulse Resp B/P (MAP) Pulse Ox O2 Delivery O2 Flow Rate FiO2 11/30/22 11:06 36.8 82 18 138/71 95 Room Air 0.00 11/28/22 13:28 21 Capillary Refill : Less Than 3 Seconds Results/Procedures Lab Laboratory Tests 11/30/22 05:35 Patient resulted labs reviewed. Assessment/Plan Assessment and Plan Assess & Plan/Chief Complaint Assessment: Severe weakness Parkinson's disease HTN HLP Hallucinations Plan: PT OT Monitor closely BRANDON BURTON DO November 30, 2022 06:02
[2022-11-30 06:08] LABS: ALBUMIN 3.9 GM/DL (3.2-4.5); BILIRUBIN,TOTAL 0.5 MG/DL (0.1-1.0); CALCIUM 9.7 MG/DL (8.5-10.1); CREATININE SERUM 1.05 MG/DL (0.60-1.30); POTASSIUM 3.9 MMOL/L (3.6-5.0); TOTAL PROTEIN 6.8 GM/DL (6.4-8.2)
[2022-11-30 08:00] VITALS: BP 138/71
[2022-11-30] MEDS: PROPRANOLOL 20 MG (INDERAL) TABLET PO SCH (09:10)
[2022-11-30] MEDS: DOCUSATE SODIUM 100 MG (COLACE) CAP PO SCH (09:10)
[2022-11-30] MEDS: SINEMET 25/100 (CARBIDOPA/LEVODOPA) TAB PO SCH (09:10)
[2022-11-30] MEDS: SENNOSIDES 8.6 MG (SENOKOT) TAB PO SCH (09:10)
--- NOTE | 2022-11-30 10:08 | Physical Therapy Daily Note ---
PT Daily Note-Current Subjective Patient standing in room with CNAs going to the BR upon PT arrival, agreeable to treatment post BR. Patient reports no pain at this time. Pain Section J - Health Conditions 1. Rarely or not at all 2. Occasionally 3. Frequently 4. Almost constantly 8. Unable to answer Pain Effect on Sleep: 1 Pain Interference with Therapy: 1 Pain Interference w/Day-to-Day: 1 Mental Status Patient Orientation: Person Transfers SCALE: Activities may be completed with or without assistive devices. 5-Xxqbxhfhte-vbknztb completes the activity by him/herself with no assistance from a helper. 5-Set-up or Clean-up Assistance-helper sets up or cleans up; patient completes activity. [place] assists only prior to or following the activity. 4-Supervision or Touching Assistance-helper provides verbal cues and/or haley kelsie/steadying and/or contact guard assistance as patient completes activity. Assistance may be provided throughout the activity or intermittently. 3-Partial/Moderate Assistance-helper does LESS THAN HALF the effort. [place] lifts, holds or supports trunk or limbs, but provides less than half the effort. 2-Substantial/Maximal Assistance-helper does MORE THAN HALF the effort. [place] lifts or holds trunk or limbs and provides more than half the effort. 5-Yvlhfkhrc-payxdk does ALL the effort. Patient does none of the effort to complete the activity. Or, the assistance of 2 or more helpers is required for the patient to complete the activity. If activity was not attempted, code reason: 7-Patient Refused. 9-Not Applicable-not attempted and the patient did not perform the activity before the current illness, exacerbation or injury. 10-Not Attempted due to Environmental Limitations-(lack of equipment, weather restraints, etc.). 88-Not Attempted due to Medical Conditions or Safety Concerns. Sit to Stand (QC): 3 Chair/Ktu-hu-Hbtbx Xfer(QC): 3 Toilet Transfer (QC): 3 Weight Bearing Right Lower Extremity: Right Full Weight Bearing Left Lower Extremity: Left Full Weight Bearing Gait Training Does the Patient Walk?: Yes Distance: 450 feet Gait Assistive Device: FWW Assessment Current Status: Fair Progress Patient demonstrates good overall improvement in cognition, ability to follow commands and present function during todays treatment. Patient performs all observed transfers with min A. Patient ambulates 450 feet with FWW, with min A and verbal cues for progression, posture, safety and control of FWW. Patient in chair post treatment with all needs met, nurse notified, call light in hands and chair alarm activated. PT Detention Goals Clinical Appeals Reviewer Goals PT Clinical Appeals Reviewer Goals Time Frame: December 14, 2022 Roll Left & Right (QC): 4 Sit to Lying (QC): 4 Lying-Sitting on Side/Bed(QC): 4 Sit to Stand (QC): 4 Chair/Pej-ws-Lkocj Xfer(QC): 4 Toilet Transfer (QC): 4 Walk 10 feet (QC): 4 Walk 50ft with 2 Turns (QC): 4 Walk 150 ft (QC): 4 PT Plan Treatment/Plan Treatment Plan: Continue Plan of Care Treatment Plan: Bed Mobility, Education, Functional Activity Kiarra, Functional Strength, Gait, Safety, Therapeutic Exercise, Transfers Treatment Duration: December 14, 2022 Frequency: 6 times per week Estimated Hrs Per Day: .25 hour per day Safety Risks/Education Patient Education: Gait Training, Transfer Techniques Teaching Recipient: Patient Teaching Methods: Demonstration, Discussion Response to Teaching: Reinforcement Needed Time Time In: 845 Time Out: 910 DATE: November 30, 2022 Total Billed Treatment Time: 25 Total Billed Treatment Visit GT (2) JAYLYN SANTANA PT November 30, 2022 10:08
--- NOTE | 2022-11-30 10:18 | Discharge Summary ---
Diagnosis/Chief Complaint Date of Admission November 24, 2022 at 03:32 Date of Discharge Discharge Date: November 30, 2022 Discharge Diagnosis Parkinson's disease Severe weakness Falls Discharge Summary Discharge Physical Examination Allergies: Coded Allergies: Penicillins (Verified Allergy, Unknown, 11/24/22) Vitals & I&Os Vital Signs Date Time Temp Pulse Resp B/P (MAP) Pulse Ox O2 Delivery O2 Flow Rate FiO2 11/30/22 11:06 36.8 82 18 138/71 95 Room Air 0.00 11/28/22 13:28 21 General Appearance: Alert, Oriented X3, Cooperative Respiratory: Clear to Auscultation Cardiovascular: Regular Rate Psych/Mental Status: Mental Status NL Hospital Course Was the Problem List Reviewed?: Yes Uneventful course after he had stopped his PD meds and became "frozen" but was able to have slow recovery with help of PT OT. Lives alone so the decision was made to send to rehab and insurance overturned their denial and was moved to ARU. Labs (last 24 hrs) Laboratory Tests 11/23/22 22:49: White Blood Count 7.7, Red Blood Count 4.73, Hemoglobin 14.6, Hematocrit 42, Mean Corpuscular Volume 89, Mean Corpuscular Hemoglobin 31, Mean Corpuscular Hemoglobin Concent 35, Red Cell Distribution Width 13.0, Platelet Count 159, Mean Platelet Volume 10.9, Immature Granulocyte % (Auto) 0, Neutrophils (%) (Auto) 68, Lymphocytes (%) (Auto) 19, Monocytes (%) (Auto) 12, Eosinophils (%) (Auto) 0, Basophils (%) (Auto) 1, Neutrophils # (Auto) 5.3, Lymphocytes # (Auto) 1.5, Monocytes # (Auto) 0.9, Eosinophils # (Auto) 0.0, Basophils # (Auto) 0.0, Immature Granulocyte # (Auto) 0.0, Sodium Level 144, Potassium Level 3.7, Chloride Level 109H, Carbon Dioxide Level 17L, Anion Gap 18H, Blood Urea Nitrogen 18, Creatinine 1.17, Estimat Glomerular Filtration Rate 67, BUN/Creatinine Ratio 15, Glucose Level 101, Calcium Level 9.3, Corrected Calcium 9.2, Magnesium Level 1.6, Total Bilirubin 0.8, Aspartate Amino Transf (AST/SGOT) 31, Alanine Aminotransferase (ALT/SGPT) 19, Alkaline Phosphatase 63, Troponin I < 0.028, C-Reactive Protein High Sensitivity 0.07, Total Protein 7.0, Albumin 4.1 11/24/22 02:08: Urine Color YELLOW, Urine Clarity CLEAR, Urine pH 6.0, Urine Specific [place] >=1.030, Urine Protein TRACEH, Urine Glucose (UA) NEGATIVE, Urine Ketones TRACEH , Urine Nitrite NEGATIVE, Urine Bilirubin 1+H, Urine Urobilinogen 1.0, Urine Leukocyte Esterase NEGATIVE, Urine RBC (Auto) 3+H, Urine RBC 50-100H, Urine WBC 0-2, Urine Crystals NONE, Urine Bacteria NEGATIVE, Urine Casts NONE, Urine Mucus SMALLH, Urine Culture Indicated NO 11/25/22 05:03: White Blood Count 9.2, Red Blood Count 5.00, Hemoglobin 15.3, Hematocrit 46, Mean Corpuscular Volume 91, Mean Corpuscular Hemoglobin 31, Mean Corpuscular Hemoglobin Concent 34, Red Cell Distribution Width 13.0, Platelet Count 146, Mean Platelet Volume 11.5, Immature Granulocyte % (Auto) 0, Neutrophils (%) (Auto) 79H, Lymphocytes (%) (Auto) 12, Monocytes (%) (Auto) 8, Eosinophils (%) (Auto) 1, Basophils (%) (Auto) 0, Neutrophils # (Auto) 7.3, Lymphocytes # (Auto) 1.1, Monocytes # (Auto) 0.7, Eosinophils # (Auto) 0.1, Basophils # (Auto) 0.0, Immature Granulocyte # (Auto) 0.0, Sodium Level 144, Potassium Level 3.9, Chloride Level 109H, Carbon Dioxide Level 22, Anion Gap 13, Blood Urea Nitrogen 19H, Creatinine 1.16, Estimat Glomerular Filtration Rate 68, BUN/Creatinine Ratio 16, Glucose Level 104, Calcium Level 9.3, Corrected Calcium 9.4, Total Bilirubin 0.9, Aspartate Amino Transf (AST/SGOT) 49H, Alanine Aminotransferase (ALT/SGPT) 13, Alkaline Phosphatase 70, Total Protein 6.6, Albumin 3.9 11/26/22 05:30: White Blood Count 6.6, Red Blood Count 4.98, Hemoglobin 15.5, Hematocrit 45, Mean Corpuscular Volume 91, Mean Corpuscular Hemoglobin 31, Mean Corpuscular Hemoglobin Concent 34, Red Cell Distribution Width 12.9, Platelet Count 134, Mean Platelet Volume 11.3, Immature Granulocyte % (Auto) 0, Neutrophils (%) (Auto) 69, Lymphocytes (%) (Auto) 19, Monocytes (%) (Auto) 10, Eosinophils (%) (Auto) 1, Basophils (%) (Auto) 0, Neutrophils # (Auto) 4.5, Lymphocytes # (Auto) 1.3, Monocytes # (Auto) 0.7, Eosinophils # (Auto) 0.1, Basophils # (Auto) 0.0, Immature Granulocyte # (Auto) 0.0, Sodium Level 143, Potassium Level 3.4L, Chloride Level 108H, Carbon Dioxide Level 24, Anion Gap 11, Blood Urea Nitrogen 19H, Creatinine 1.06, Estimat Glomerular Filtration Rate 75, BUN/Creatinine Ratio 18, Glucose Level 83, Calcium Level 9.2, Corrected Calcium 9.4, Total Bilirubin 0.7, Aspartate Amino Transf (AST/SGOT) 40H, Alanine Aminotransferase (ALT/SGPT) 25, Alkaline Phosphatase 64, Total Protein 6.5, Albumin 3.8, Percent Immature Platelet Fraction 6.0, Smear Scan YES 11/27/22 04:27: White Blood Count 5.8, Red Blood Count 4.85, Hemoglobin 14.9, Hematocrit 44, Mean Corpuscular Volume 91, Mean Corpuscular Hemoglobin 31, Mean Corpuscular Hemoglobin Concent 34, Red Cell Distribution Width 12.9, Platelet Count 128L, Mean Platelet Volume 11.3, Immature Granulocyte % (Auto) 0, Neutrophils (%) (Auto) 64, Lymphocytes (%) (Auto) 23, Monocytes (%) (Auto) 11, Eosinophils (%) (Auto) 2, Basophils (%) (Auto) 0, Neutrophils # (Auto) 3.7, Lymphocytes # (Auto) 1.4, Monocytes # (Auto) 0.6, Eosinophils # (Auto) 0.1, Basophils # (Auto) 0.0, Immature Granulocyte # (Auto) 0.0, Percent Immature Platelet Fraction 5.4, Sodium Level 142, Potassium Level 3.4L, Chloride Level 107, Carbon Dioxide Level 25, Anion Gap 10, Blood Urea Nitrogen 16, Creatinine 1.06, Estimat Glomerular Filtration Rate 75, BUN/Creatinine Ratio 15, Glucose Level 87, Calcium Level 9.1, Corrected Calcium 9.3, Total Bilirubin 0.6, Aspartate Amino Transf (AST/SGOT) 35H, Alanine Aminotransferase (ALT/SGPT) 17, Alkaline Phosphatase 59, Total Protein 6.3L, Albumin 3.7 11/28/22 05:39: White Blood Count 7.2, Red Blood Count 4.74, Hemoglobin 14.6, Hematocrit 43, Mean Corpuscular Volume 90, Mean Corpuscular Hemoglobin 31, Mean Corpuscular Hemoglobin Concent 34, Red Cell Distribution Width 12.7, Platelet Count 144, Mean Platelet Volume 10.9, Immature Granulocyte % (Auto) 0, Neutrophils (%) (Auto) 74, Lymphocytes (%) (Auto) 15, Monocytes (%) (Auto) 9, Eosinophils (%) (Auto) 1, Basophils (%) (Auto) 0, Neutrophils # (Auto) 5.3, Lymphocytes # (Auto) 1.1, Monocytes # (Auto) 0.7, Eosinophils # (Auto) 0.1, Basophils # (Auto) 0.0, Immature Granulocyte # (Auto) 0.0, Sodium Level 138, Potassium Level 3.8, Chloride Level 108H, Carbon Dioxide Level 22, Anion Gap 8, Blood Urea Nitrogen 18, Creatinine 1.04, Estimat Glomerular Filtration Rate 77, BUN/Creatinine Ratio 17, Glucose Level 103, Calcium Level 9.0, Corrected Calcium 9.2, Total Bilirubin 0.6, Aspartate Amino Transf (AST/SGOT) 33, Alanine Aminotransferase (ALT/SGPT) 23, Alkaline Phosphatase 61, Total Protein 6.6, Albumin 3.8 11/29/22 05:22: White Blood Count 5.8, Red Blood Count 5.42, Hemoglobin 16.7, Hematocrit 49, Mean Corpuscular Volume 90, Mean Corpuscular Hemoglobin 31, Mean Corpuscular Hemoglobin Concent 34, Red Cell Distribution Width 12.6, Platelet Count 160, Mean Platelet Volume 11.1, Immature Granulocyte % (Auto) 0, Neutrophils (%) (Auto) 64, Lymphocytes (%) (Auto) 22, Monocytes (%) (Auto) 12, Eosinophils (%) (Auto) 1, Basophils (%) (Auto) 1, Neutrophils # (Auto) 3.7, Lymphocytes # (Auto) 1.3, Monocytes # (Auto) 0.7, Eosinophils # (Auto) 0.1, Basophils # (Auto) 0.0, Immature Granulocyte # (Auto) 0.0, Sodium Level 141, Potassium Level 4.6, Chloride Level 106, Carbon Dioxide Level 22, Anion Gap 13, Blood Urea Nitrogen 16, Creatinine 1.04, Estimat Glomerular Filtration Rate 77, BUN/Creatinine Ratio 15, Glucose Level 100, Calcium Level 9.5, Corrected Calcium 9.4, Total Bilirubin 0.6, Aspartate Amino Transf (AST/SGOT) 39H, Alanine Aminotransferase (ALT/SGPT) 33, Alkaline Phosphatase 63, Total Protein 7.6, Albumin 4.1 11/30/22 05:35: White Blood Count 5.6, Red Blood Count 5.16, Hemoglobin 15.8, Hematocrit 47, Mean Corpuscular Volume 90, Mean Corpuscular Hemoglobin 31, Mean Corpuscular Hemoglobin Concent 34, Red Cell Distribution Width 12.7, Platelet Count 177, Mean Platelet Volume 10.7, Immature Granulocyte % (Auto) 1, Neutrophils (%) (Auto) 60, Lymphocytes (%) (Auto) 27, Monocytes (%) (Auto) 11, Eosinophils (%) (Auto) 1, Basophils (%) (Auto) 1, Neutrophils # (Auto) 3.4, Lymphocytes # (Auto) 1.5, Monocytes # (Auto) 0.6, Eosinophils # (Auto) 0.1, Basophils # (Auto) 0.0, Immature Granulocyte # (Auto) 0.0, Sodium Level 141, Potassium Level 3.9, Chloride Level 107, Carbon Dioxide Level 24, Anion Gap 10, Blood Urea Nitrogen 23H, Creatinine 1.05, Estimat Glomerular Filtration Rate 76, BUN/Creatinine Ratio 22, Glucose Level 96, Calcium Level 9.7, Corrected Calcium 9.8, Total Bilirubin 0.5, Aspartate Amino Transf (AST/SGOT) 32, Alanine Aminotransferase (ALT/SGPT) 33, Alkaline Phosphatase 61, Total Protein 6.8, Albumin 3.9 Pending Labs Laboratory Tests 11/23/22 22:49: White Blood Count 7.7, Red Blood Count 4.73, Hemoglobin 14.6, Hematocrit 42, Mean Corpuscular Volume 89, Mean Corpuscular Hemoglobin 31, Mean Corpuscular Hemoglobin Concent 35, Red Cell Distribution Width 13.0, Platelet Count 159, Mean Platelet Volume 10.9, Immature Granulocyte % (Auto) 0, Neutrophils (%) (Auto) 68, Lymphocytes (%) (Auto) 19, Monocytes (%) (Auto) 12, Eosinophils (%) (Auto) 0, Basophils (%) (Auto) 1, Neutrophils # (Auto) 5.3, Lymphocytes # (Auto) 1.5, Monocytes # (Auto) 0.9, Eosinophils # (Auto) 0.0, Basophils # (Auto) 0.0, Immature Granulocyte # (Auto) 0.0, Sodium Level 144, Potassium Level 3.7, Chloride Level 109, Carbon Dioxide Level 17, Anion Gap 18, Blood Urea Nitrogen 18, Creatinine 1.17, Estimat Glomerular Filtration Rate 67, BUN/Creatinine Ratio 15, Glucose Level 101, Calcium Level 9.3, Corrected Calcium 9.2, Magnesium Level 1.6, Total Bilirubin 0.8, Aspartate Amino Transf (AST/SGOT) 31, Alanine Aminotransferase (ALT/SGPT) 19, Alkaline Phosphatase 63, Troponin I < 0.028, C- Reactive Protein High Sensitivity 0.07, Total Protein 7.0, Albumin 4.1 11/24/22 02:08: Urine Color YELLOW, Urine Clarity CLEAR, Urine pH 6.0, Urine Specific [place] >=1.030, Urine Protein TRACE, Urine Glucose (UA) NEGATIVE, Urine Ketones TRACE, Urine Nitrite NEGATIVE, Urine Bilirubin 1+, Urine Urobilinogen 1.0, Urine Leuko cyte Esterase NEGATIVE, Urine RBC (Auto) 3+, Urine RBC 50-100, Urine WBC 0-2, Urine Crystals NONE, Urine Bacteria NEGATIVE, Urine Casts NONE, Urine Mucus SMALL, Urine Culture Indicated NO 11/25/22 05:03: White Blood Count 9.2, Red Blood Count 5.00, Hemoglobin 15.3, Hematocrit 46, Mean Corpuscular Volume 91, Mean Corpuscular Hemoglobin 31, Mean Corpuscular Hemoglobin Concent 34, Red Cell Distribution Width 13.0, Platelet Count 146, Mean Platelet Volume 11.5, Immature Granulocyte % (Auto) 0, Neutrophils (%) (Auto) 79, Lymphocytes (%) (Auto) 12, Monocytes (%) (Auto) 8, Eosinophils (%) (Auto) 1, Basophils (%) (Auto) 0, Neutrophils # (Auto) 7.3, Lymphocytes # (Auto) 1.1, Monocytes # (Auto) 0.7, Eosinophils # (Auto) 0.1, Basophils # (Auto) 0.0, Immature Granulocyte # (Auto) 0.0, Sodium Level 144, Potassium Level 3.9, Chloride Level 109, Carbon Dioxide Level 22, Anion Gap 13, Blood Urea Nitrogen 19, Creatinine 1.16, Estimat Glomerular Filtration Rate 68, BUN/Creatinine Ratio 16, Glucose Level 104, Calcium Level 9.3, Corrected Calcium 9.4, Total Bilirubin 0.9, Aspartate Amino Transf (AST/SGOT) 49, Alanine Aminotransferase (ALT/SGPT) 13, Alkaline Phosphatase 70, Total Protein 6.6, Albumin 3.9 11/26/22 05:30: White Blood Count 6.6, Red Blood Count 4.98, Hemoglobin 15.5, Hematocrit 45, Mean Corpuscular Volume 91, Mean Corpuscular Hemoglobin 31, Mean Corpuscular Hemoglobin Concent 34, Red Cell Distribution Width 12.9, Platelet Count 134, Mean Platelet Volume 11.3, Immature Granulocyte % (Auto) 0, Neutrophils (%) (Auto) 69, Lymphocytes (%) (Auto) 19, Monocytes (%) (Auto) 10, Eosinophils (%) (Auto) 1, Basophils (%) (Auto) 0, Neutrophils # (Auto) 4.5, Lymphocytes # (Auto) 1.3, Monocytes # (Auto) 0.7, Eosinophils # (Auto) 0.1, Basophils # (Auto) 0.0, Immature Granulocyte # (Auto) 0.0, Sodium Level 143, Potassium Level 3.4, Chloride Level 108, Carbon Dioxide Level 24, Anion Gap 11, Blood Urea Nitrogen 19, Creatinine 1.06, Estimat Glomerular Filtration Rate 75, BUN/Creatinine Ratio 18, Glucose Level 83, Calcium Level 9.2, Corrected Calcium 9.4, Total Bilirubin 0.7, Aspartate Amino Transf (AST/SGOT) 40, Alanine Aminotransferase (ALT/SGPT) 25, Alkaline Phosphatase 64, Total Protein 6.5, Albumin 3.8, Percent Immature Platelet Fraction 6.0, Smear Scan YES 11/27/22 04:27: White Blood Count 5.8, Red Blood Count 4.85, Hemoglobin 14.9, Hematocrit 44, Mean Corpuscular Volume 91, Mean Corpuscular Hemoglobin 31, Mean Corpuscular Hemoglobin Concent 34, Red Cell Distribution Width 12.9, Platelet Count 128, Mean Platelet Volume 11.3, Immature Granulocyte % (Auto) 0, Neutrophils (%) (Auto) 64, Lymphocytes (%) (Auto) 23, Monocytes (%) (Auto) 11, Eosinophils (%) (Auto) 2, Basophils (%) (Auto) 0, Neutrophils # (Auto) 3.7, Lymphocytes # (Auto) 1.4, Monocytes # (Auto) 0.6, Eosinophils # (Auto) 0.1, Basophils # (Auto) 0.0, Immature Granulocyte # (Auto) 0.0, Percent Immature Platelet Fraction 5.4, Sodium Level 142, Potassium Level 3.4, Chloride Level 107, Carbon Dioxide Level 25, Anion Gap 10, Blood Urea Nitrogen 16, Creatinine 1.06, Estimat Glomerular Filtration Rate 75, BUN/Creatinine Ratio 15, Glucose Level 87, Calcium Level 9.1, Corrected Calcium 9.3, Total Bilirubin 0.6, Aspartate Amino Transf (AST/SGOT) 35, Alanine Aminotransferase (ALT/SGPT) 17, Alkaline Phosphatase 59, Total Protein 6.3, Albumin 3.7 11/28/22 05:39: White Blood Count 7.2, Red Blood Count 4.74, Hemoglobin 14.6, Hematocrit 43, Mean Corpuscular Volume 90, Mean Corpuscular Hemoglobin 31, Mean Corpuscular Hem oglobin Concent 34, Red Cell Distribution Width 12.7, Platelet Count 144, Mean Platelet Volume 10.9, Immature Granulocyte % (Auto) 0, Neutrophils (%) (Auto) 74, Lymphocytes (%) (Auto) 15, Monocytes (%) (Auto) 9, Eosinophils (%) (Auto) 1, Basophils (%) (Auto) 0, Neutrophils # (Auto) 5.3, Lymphocytes # (Auto) 1.1, Monocytes # (Auto) 0.7, Eosinophils # (Auto) 0.1, Basophils # (Auto) 0.0, Immature Granulocyte # (Auto) 0.0, Sodium Level 138, Potassium Level 3.8, Chloride Level 108, Carbon Dioxide Level 22, Anion Gap 8, Blood Urea Nitrogen 18, Creatinine 1.04, Estimat Glomerular Filtration Rate 77, BUN/Creatinine Ratio 17, Glucose Level 103, Calcium Level 9.0, Corrected Calcium 9.2, Total Bilirubin 0.6, Aspartate Amino Transf (AST/SGOT) 33, Alanine Aminotransferase (ALT/SGPT) 23, Alkaline Phosphatase 61, Total Protein 6.6, Albumin 3.8 11/29/22 05:22: White Blood Count 5.8, Red Blood Count 5.42, Hemoglobin 16.7, Hematocrit 49, Mean Corpuscular Volume 90, Mean Corpuscular Hemoglobin 31, Mean Corpuscular Hemoglobin Concent 34, Red Cell Distribution Width 12.6, Platelet Count 160, Mean Platelet Volume 11.1, Immature Granulocyte % (Auto) 0, Neutrophils (%) (Auto) 64, Lymphocytes (%) (Auto) 22, Monocytes (%) (Auto) 12, Eosinophils (%) (Auto) 1, Basophils (%) (Auto) 1, Neutrophils # (Auto) 3.7, Lymphocytes # (Auto) 1.3, Monocytes # (Auto) 0.7, Eosinophils # (Auto) 0.1, Basophils # (Auto) 0.0, Immature Granulocyte # (Auto) 0.0, Sodium Level 141, Potassium Level 4.6, Chloride Level 106, Carbon Dioxide Level 22, Anion Gap 13, Blood Urea Nitrogen 16, Creatinine 1.04, Estimat Glomerular Filtration Rate 77, BUN/Creatinine Ratio 15, Glucose Level 100, Calcium Level 9.5, Corrected Calcium 9.4, Total Bilirubin 0.6, Aspartate Amino Transf (AST/SGOT) 39, Alanine Aminotransferase (ALT/SGPT) 33, Alkaline Phosphatase 63, Total Protein 7.6, Albumin 4.1 11/30/22 05:35: White Blood Count 5.6, Red Blood Count 5.16, Hemoglobin 15.8, Hematocrit 47, Mean Corpuscular Volume 90, Mean Corpuscular Hemoglobin 31, Mean Corpuscular Hemoglobin Concent 34, Red Cell Distribution Width 12.7, Platelet Count 177, Mean Platelet Volume 10.7, Immature Granulocyte % (Auto) 1, Neutrophils (%) (Auto) 60, Lymphocytes (%) (Auto) 27, Monocytes (%) (Auto) 11, Eosinophils (%) (Auto) 1, Basophils (%) (Auto) 1, Neutrophils # (Auto) 3.4, Lymphocytes # (Auto) 1.5, Monocytes # (Auto) 0.6, Eosinophils # (Auto) 0.1, Basophils # (Auto) 0.0, Immature Granulocyte # (Auto) 0.0, Sodium Level 141, Potassium Level 3.9, Chloride Level 107, Carbon Dioxide Level 24, Anion Gap 10, Blood Urea Nitrogen 23, Creatinine 1.05, Estimat Glomerular Filtration Rate 76, BUN/Creatinine Ratio 22, Glucose Level 96, Calcium Level 9.7, Corrected Calcium 9.8, Total Bilirubin 0.5, Aspartate Amino Transf (AST/SGOT) 32, Alanine Aminotransferase (ALT/SGPT) 33, Alkaline Phosphatase 61, Total Protein 6.8, Albumin 3.9 Discharge Home Medications: Active Scripts Active Reported Lisinopril 10 Mg Tablet 10 Mg PO DAILY LAST FILLED 06-27-2022 #30/30 DAY SUPPLY Carbidopa-Levodopa 25-100 Tab (Carbidopa/Levodopa) 25 Mg-100 Mg Tablet 1 Each PO TID LAST FILLED 07-31-2022 #90/30 DAY SUPPLY Lovastatin 20 Mg Tablet 20 Mg PO HS Flomax (Tamsulosin HCl) 0.4 Mg Cap 0.4 Mg PO DAILY Myrbetriq (Mirabegron) 25 Mg Tab.er.24h 25 Mg PO DAILY Propranolol HCl 60 Mg Tablet 30 Mg PO BID TAKES OF A 60MG Instructions to patient/family Please see electronic discharge instructions given to patient. BRANDON BURTON DO November 30, 2022 10:18
[2022-11-30 11:06] VITALS: BP 138/71
== END 2022-11-30 10:17 ==
LOC: EDUNIT# 20:55 → ER 20:58 → 4TH 11-24 03:32
PROVIDERS: ADMIT Internal Medicine; ATTEND Internal Medicine
DX: G20 Parkinson's disease (principal); N40.0 Benign prostatic hyperplasia without lower urinary tract symptoms; R53.1 Weakness; I10 Essential (primary) hypertension; E78.5 Hyperlipidemia, unspecified; R44.3 Hallucinations, unspecified
CPT/HCPCS: 71045; 80053 ×7; 81000; 83735; 84484; 85025 ×7; 86141; 93005; 94760 ×2; 96361; 96372 ×6; 97110; 97116 ×5; 97162; 97166; 97530; 97535 ×3; 99284; G0378; 36415; 85027

== ENCOUNTER 2022-11-30 10:09 | Inpatient (IN) | payer MEDICARE ==
[~2022-11-30] VITALS: Ht 185.5 cm; Wt 91.9 kg
[~2022-11-30 10:09] MED LIST changes: +CARB1TAB32 PO; +LISI10TA25 PO; +LOVA20TA2 PO; +MIRA25TA PO; +PROP60TA17 PO; +TMSL.4C PO
--- NOTE | 2022-11-30 10:23 | PM&R Post Admission Assessment ---
PM&R Date of Visit: November 30, 2022 Time of Visit: 11:30 History of Present Illness CC: Severe Parkinson's with severe weakness HPI: This is a 72yoWM with Parkinson's disease who was admitted to 4th floor last weekend due to severe weakness and unable to ambulate or function at home alone due to severe Parkinson's because he did not take his PD meds for several days. He has had a very slow recovery working with therapy while he has waited for insurance to approve rehab. Labs remained stable. Bowels are sluggish so regimen will be initiated for that issue. PLOF he lives alone and performs his own ADL's. The goal is to return home. He is at risk for NHP. Past Crrxvzd-Aypgnx-Yypuls Hx Past Med/Social Hx: Reviewed Nursing Past Med/Soc Hx, Reviewed and Corrections made Patient Social History Marrital Status: single Employed/Student: retired Alcohol Use: Denies Use Smoking Status: Never a Smoker Immunizations Up To Date Date of Influenza Vaccine: May 05, 2012 Past Medical History Cardiac: High Cholesterol, Hypertension Neurological: Parkinson's Disease Genitourinary: Benign Prostatic Hyperpl, Prostate Problems PM&R Allergy/Meds/Data Review Allergies Coded Allergies: Penicillins (Verified Allergy, Unknown, 11/24/22) Home Medications Scheduled Carbidopa/Levodopa (Carbidopa-Levodopa 25-100 Tab), 1 EACH PO TID, (Reported) Lisinopril (Lisinopril), 10 MG PO DAILY, (Reported) Lovastatin (Lovastatin), 20 MG PO HS, (Reported) Mirabegron (Myrbetriq), 25 MG PO DAILY, (Reported) Propranolol HCl (Propranolol HCl), 30 MG PO BID, (Reported) Tamsulosin HCl (Flomax), 0.4 MG PO DAILY, (Reported) Discontinued Medications Aspirin (Aspirin Ec 81 Mg), 81 MG PO DAILY, (Reported) Discontinued Reason: No Longer Taking Atorvastatin Calcium (Lipitor 40MG), 40 MG PO HS, (Reported) Discontinued Reason: No Longer Taking Finasteride (Finasteride), 5 MG PO DAILY, (Reported) Discontinued Reason: No Longer Taking Triamterene/Hydrochlorothiazid (Triamterene-Hctz 37.5-25 Mg Cp), 1 CAP PO DAILY, (Reported) Discontinued Reason: No Longer Taking [Fish Oil Liquid], 2 TSP PO DAILY, (Reported) Discontinued Reason: No Longer Taking Current Medications Current Medications Reviewed Review of Systems Constitutional: see HPI, dizziness, malaise, weakness EENTM: no symptoms reported Respiratory: no symptoms reported Cardiovascular: no symptoms reported Gastrointestinal: no symptoms reported Genitourinary: decreased output Musculoskeletal: back pain Skin: no symptoms reported Psychiatric/Neurological: Anxiety, Depressed, Other (paranoia) Physical Exam Physical Exam Vital Signs Capillary Refill : Height, Weight, BMI Height: '" Weight: lbs. oz. kg; 27.34 BMI Method: General Appearance: No Apparent Distress, WD/WN, Chronically ill Eyes: Bilateral Eye Normal Inspection, Bilateral Eye PERRL HEENT: PERRL/EOMI, Normal ENT Inspection, Pharynx Normal Neck: Full Range of Motion, Normal Inspection, Non Tender, Supple, Carotid Bruit Respiratory: Chest Non Tender, Lungs Clear, Normal Breath Sounds, No Accessory Muscle Use, No Respiratory Distress Cardiovascular: Regular Rate, Rhythm, No Edema, No Gallop, No JVD, No Murmur, Normal Peripheral Pulses Gastrointestinal: Normal Bowel Sounds, No Organomegaly, No Pulsatile Mass, Non Tender, Soft Back: Normal Inspection, No CVA Tenderness, No Vertebral Tenderness Extremity: Normal Capillary Refill, Normal Inspection, Normal Range of Motion, Non Tender, No Calf Tenderness, No Pedal Edema Neurologic/Psychiatric: Alert, Oriented x3, Abnormal Gait, Depressed Affect, Motor Weakness (generalized weakness), Other (tremor noted) Skin: Normal Color, Warm/Dry Lymphatic: No Adenopathy PM&R Medical Assessment & Plan REHAB/MEDICAL ASSESSMENT AND PLAN: REHAB IMPAIRMENT GROUP: Parkinson's disease ETIOLOGIC DIAGNOSIS: Parkinson's disease The comorbidities that impact the patients function and/or functional outcome by: severe Parkinson's disease, fall risk, lives alone REHAB PLAN: The patient is being admitted to our comprehensive inpatient rehabilitation facility and can tolerate the intensity of service consisting of at least: 180 minutes of therapy a day, 5 out of 7 days a week Rehab treatment will consist of: PT OT will focus on regaining function with use of AD in order to regain ambulatory function and ADL's in order to regain independence The patient/family has a good understanding of our discharge process and will benefit from an interdisciplinary inpatient rehabilitation program. The patient has potential to make improvement and is in need of at least two of the following multidisciplinary therapies including but not limited to physical, occupational, speech, and prosthetics and orthotics. Additionally the patient will need services from respiratory, nutritional services, wound care, psychology, etc. (Customize this to each patient). Given the patients complex condition and risk of further medical complications, rehabilitation services cannot be safely or effectively provided at a lower level of care such as a intermediate facility. BARRIERS TO DISCHARGE: Lives alone ESTIMATED LOS: 7 days DISPOSITION: Home vs AL RELEVANT CHANGES SINCE PREADMISSION SCREENING: I have compared the patients medical and functional status at the time of the preadmission screening and there are: no changes PROGNOSIS: Good REHABILITATION GOALS: 1. PT OT will focus on regaining function with use of AD in order to regain ambulatory function and ADL's in order to regain independence All the above goals were reviewed with the patient and he/she is in agreement. By signing this document, I acknowledge that I have personally performed a full physical examination on this patient within 24 hours of admission to this inpatient rehabilitation facility and have determined the patient to be able to tolerate the above course of treatment at an intensive level for a reasonable period of time. I will be completing a detailed individualized Plan of Care for this patient by day #4 of the patients stay based upon the Preadmission Screen, the Post-Admission Evaluation, and the therapy evaluations. Admission Dx/Comorbidities: (1) Parkinsons disease Status: Chronic ICD Codes: G20 - Parkinson's disease (2) BPH (benign prostatic hyperplasia) Status: Chronic ICD Codes: N40.0 - Benign prostatic hyperplasia without lower urinary tract symptoms (3) HLD (hyperlipidemia) Status: Chronic ICD Codes: E78.5 - Hyperlipidemia, unspecified (4) HTN (hypertension) Status: Chronic ICD Codes: I10 - Essential (primary) hypertension Assessment/Plan Assessment and Plan Assess & Plan/Chief Complaint Assessment: Parkinson's disease HLP HTN BPH Paranoia Plan: PT OT Fall risk Monitor BRANDON Rhoades DO November 30, 2022 10:23
[2022-11-30] MEDS ORDERED: FLEET ENEMA ADULT 1 EA BTL PR PRN (10:30)
[2022-11-30] MEDS ORDERED: CALCIUM CARBONATE 500 MG (TUMS) TAB.CHEW PO PRN (10:30)
[2022-11-30] MEDS ORDERED: diphenhydrAMINE 25 MG TAB (BENADRYL) PO PRN (10:30)
[2022-11-30] MEDS ORDERED: LACTULOSE SYRUP 10GM/15ML (ENULOSE) 30ML UDC PO PRN (10:30)
[2022-11-30] MEDS ORDERED: guaiFENesin/CODEINE (ROBITUSSIN AC) 10ML UDC PO PRN (10:30)
[2022-11-30] MEDS ORDERED: DOCUSATE SODIUM 100 MG (COLACE) CAP PO PRN (10:30)
[2022-11-30] MEDS ORDERED: LOPERAMIDE 2 MG (IMODIUM) TABLET PO PRN (10:30)
[2022-11-30] MEDS ORDERED: ONDANSETRON 4 MG (ZOFRAN) ORAL DISSOLVE TAB PO PRN (10:30)
[2022-11-30] MEDS ORDERED: BISACODYL 10 MG SUPP (DULCOLAX) PR PRN (10:30)
--- OUTSIDE RECORDS SUMMARY | 2022-11-30 11:42 | XMS REPORT ---
Author Author [facility] Address Unknown Phone Unavailable Care Team Providers Care Speech Scientist Name Role Phone JUSTUS WISE Unavailable PROBLEMS Type Condition ICD9-CM Code [id number] Code Onset Dates Condition S tatus W/U Status Risk SNOMED Code Notes Problem Stage 3a chronic kidney disease N18.31 confi rmed 493286485 Problem Parkinson disease G20 confirmed 49 655852 Problem Arthritis M19.90 confirmed 0146706 Problem Essential hypertension I10 confirmed 56859571 Problem Mixed hyperlipidemia E78.2 confirmed 741969961 Problem Benign prostatic hyperplasia with lower urinary tract symptoms N40.1 confirmed [id number] ALLERGIES Allergen (clinical drug ingredient) Drug/Non Drug Allergy do cumented on EMR Reaction Allergy Type Onset Date Status penicillin G Penicillin G Potassium([facility] Code:[address]-91) nausea Drug Allergy Active ENCOUNTERS from 1950 to 2022-10-18 Encounter Location Date Provider Diagnosis [facility] [address] [facility] [id number] [place] [address] Oct, JUSTUS WISE IMMUNIZATIONS Vaccine Route Administration Date Status FLUZONE HIGH DOSE (65 YRS AND UP) 2013 Unknown May 13, 2 019 Administered FLUZONE HIGH DOSE (65 YRS AND UP) 2013 Unknown Jun 09, 2 018 Administered Influenza, seasonal, injectable, preservative free, 6-35 mon ths Unknown Apr 15, 2017 Administered PRIVATE SHINGRIX (HERPES ZOSTER-2 DOSE) IM Intramuscular September 182021 Administered PRIVATE PCV 13 (PREVNAR) IM Intramuscular September 21, 2020 Admini stered FLUARIX QUAD (3 AND UP) 2016 Unknown May 14, 2016 Adm inistered FLUARIX QUAD (3 & UP)-GSK-2014 IM Intramuscular May 11, 2015 Administered 1st Dose MODERNA COVID-19, mRNA, 0.5 mL Unknown October Administered 2nd Dose MODERNA COVID-19, mRNA, 0.5mL Unknown November 30 Administered 1st Booster MODERNA COVID-19, mRNA, 0.25mL IM Intramuscular Alejandro 2021 Administered PRIVATE HIGH DOSE FLU 22-23 (FLUZONE HD) AGE 65YRS AND UP IM Intramuscular May 24, 2022 Administered 1st Booster MODERNA Bivalent, COVID-19, 0.5mL IM Intramuscular M 2022 Administered PRIVATE PCV20 ([id number]) IM Intramuscular October 16, 2022 Admin istered PRIVATE FLULAVAL QUAD 0.5ML (6 MO AND UP) 2019 IM Intramuscular Apr 24, 2020 Administered PRIVATE SHINGRIX (HERPES ZOSTER-2 DOSE) IM Intramuscular December Administered SOCIAL HISTORY Sex Assigned At : Social History Observation Description Sex Assigned At Unknown Alcohol Screen (Audit-C) Question Answer Notes Did you have a drink containing alcohol in the past year? No Points 0 Interpretation Negative PHQ2 Question Answer Notes In the last 2 weeks, how often have you had little interest or pleasure in doing things? Not at all In the last 2 weeks, how often have you been feeling down, depressed, or hopeless? Not at all Total PHQ2 Score 0 REASON FOR REFERRAL No Information VITAL SIGNS No information MEDICATIONS Medication SIG (Take, Route, Frequency, Duration) Notes Start Da te End Date Status Mens Multivitamin - as directed Orally Active Shingrix 50 MCG/0.5ML inject 50mcg/0.5ml Intramuscular Once a da y for 1 day Aug, Not-Taking Propranolol HCl 60 MG 1/2 tablet by oral route twice a day f or 90 days Please mail Active Cholecalciferol 1 capsule Orally Once a day for 90 days Not-Taking Tamsulosin HCl 0.4 MG TAKE 1 CAPSULE BY MOUTH ONCE DAILY 30 MINUTES AFTER THE SAME MEAL EACH DAY Orally Once a day for 90 days Please mail Active Cholecalciferol 1 capsule Orally Once a day for 90 days Not-Taking Lisinopril 10 MG TAKE 1 TABLET BY MOUTH ONCE DAILY for 100 Active Meloxicam 7.5 MG TAKE 1 TABLET BY MOUTH ONCE DAILY for 100 prn Active Loratadine 10 MG 1 tablet Orally Once a day Not-Taking Myrbetriq 25 MG 1 tablet Orally Once a day for 30 days Aug, Active Carbidopa-Levodopa 25-100 MG TAKE 1 TABLET BY MOUTH 3 TIMES DAILY for 100 days Please mail Active Ciclopirox 8 % 1 application Externally Once a day for 30 days Aug, Active Nuplazid 34 MG 1 capsule Orally Once a day at supper for 30 days Aug, Not-Taking Lovastatin 20 MG TAKE 1 TABLET BY MOUTH ONCE DAILY IN THE EVENING WITH A MEAL Orally Once a day for 90 days NEEDS REFILL Ac tive PROCEDURES No Information RESULTS No Results REASON FOR VISIT meloxicam refill MEDICAL (GENERAL) HISTORY Type Description Date Medical History hypertension Medical History cysts removals Medical History kidney stones Medical History parkinsons disease Medical History Arthritis Medical History Mixed hyperlipidemia Medical History Stage 3a chronic kidney disease Surgical History heart cath 2011 Hospitalization History surgery Goals Section No Information Health Concerns No Information MEDICAL EQUIPMENT No Information MENTAL STATUS No Information FUNCTIONAL STATUS No Information ASSESSMENTS No Information PLAN OF TREATMENT Medication Medication Name Sig Start Date Stop Date Propranolol HCl 60 MG 1/2 tablet by oral route twice a day for 9 0 days Tamsulosin HCl 0.4 MG TAKE 1 CAPSULE BY MOUTH ONCE DAILY 30 MINUTES AFTER THE SAME MEAL EACH DAY Orally Once a day for 90 days Carbidopa-Levodopa 25-100 MG TAKE 1 TABLET BY MOUTH 3 TIMES DAILY for 100 days Next Appt Details Provider Name:JIN GRAVES, 2022-12-17 1 1:20:00 AM, [address] [address] [address], [id number], [place], [address], Insurance Providers Payer Name Payer Address Payer Phone Insured Name Patient Relati onship to Insured Coverage Start Date Coverage End Date Subscriber Number Group Nu mber AARP Medicare Advantage Choice Plan 2 (PPO) [address] [facility] [address] Jacky Perera Self - patient is the insured [id number] [employer] MEDICARE Part A [address] [facility] [address] Jacky Perera Self - patient is the insured [id number]
[2022-11-30] MEDS: ENOXAPARIN 40 MG/0.4 ML (LOVENOX) SYR SC SCH (12:47)
[2022-11-30] MEDS: TAMSULOSIN 0.4 MG (FLOMAX) CAP PO SCH (17:54)
[2022-11-30 20:15] VITALS: BP 129/74
[2022-11-30] MEDS ORDERED: NON-FORMULARY MEDICATION 1 EA EA (Lovastatin 20 MG) PO SCH (21:00)
[2022-11-30] MEDS: SINEMET 25/100 (CARBIDOPA/LEVODOPA) TAB PO SCH (21:22)
[2022-11-30] MEDS: AtorvaSTATin TABLET 10 MG TABLET PO SCH (21:23)
[2022-11-30] MEDS: PROPRANOLOL 20 MG (INDERAL) TABLET PO SCH (21:23)
[2022-11-30] MEDS: SENNA W/DOCUSATE (SENOKOT S) TABLET PO SCH (21:23)
[2022-11-30] MEDS: DOCUSATE SODIUM 100 MG (COLACE) CAP PO SCH (21:32)
[2022-11-30] MEDS: polyethylene glycoL POWDER 17 GM (MIRALAX) PACK PO SCH (21:32)
[2022-12-01 05:47] LABS: EOSINOPHILS # (AUTO) 0.1 10^3/uL (0.0-0.3); EOSINOPHILS % (AUTO) 2 % (0-10); MEAN CORPUSCULAR HEMOGLOBIN 31 pg (25-34); MEAN CORPUSCULAR HGB CONC 34 g/dL (32-36); MEAN CORPUSCULAR VOLUME 90 fL (80-99)
[2022-12-01 05:48] LABS: BASOPHILS % (AUTO) 1 % (0-10); HEMATOCRIT 45 % (40-54); HEMOGLOBIN 15.5 g/dL (13.3-17.7); LYMPHOCYTES # (AUTO) 1.4 10^3/uL (1.0-4.0); LYMPHOCYTES % (AUTO) 24 % (12-44); MEAN PLATELET VOLUME 11.1 fL (9.0-12.2); MONOCYTES # (AUTO) 0.6 10^3/uL (0.0-1.0); MONOCYTES % (AUTO) 10 % (0-12); NEUTROPHILS # (AUTO) 3.7 10^3/uL (1.8-7.8); NEUTROPHILS % (AUTO) 63 % (42-75); PLATELET COUNT 170 10^3/uL (130-400); WHITE BLOOD COUNT 5.9 10^3/uL (4.3-11.0)
[2022-12-01 06:00] LABS: ALBUMIN 3.9 GM/DL (3.2-4.5); POTASSIUM 3.9 MMOL/L (3.6-5.0)
[2022-12-01 06:02] LABS: CALCIUM 9.2 MG/DL (8.5-10.1)
[2022-12-01 06:05] LABS: BILIRUBIN,TOTAL 0.6 MG/DL (0.1-1.0)
[2022-12-01 06:06] LABS: CREATININE SERUM 1.07 MG/DL (0.60-1.30)
--- NOTE | 2022-12-01 07:35 | PM&R Progress Note ---
Subjective HPI/CC On Admission Date Seen by Provider: December 01, 2022 Time Seen by Provider: 12:00 Subjective/Events-last exam 12/01/2022: Doing pretty well One on one sitter at bedside Confusion varies Paranoia at times Weakness At risk for NH Review of Systems General: Fatigue, Malaise Objective Exam Vital Signs Vital Signs Date Time Temp Pulse Resp B/P (MAP) Pulse Ox O2 Delivery O2 Flow Rate FiO2 12/01/22 09:00 Room Air 12/01/22 08:18 36.6 92 18 120/73 (89) 93 Capillary Refill : General Appearance: No Apparent Distress, WD/WN, Chronically ill HEENT: PERRL/EOMI, Normal ENT Inspection, Pharynx Normal Neck: Full Range of Motion, Normal Inspection, Non Tender, Supple, Carotid Bruit Respiratory: Chest Non Tender, Lungs Clear, Normal Breath Sounds, No Accessory Muscle Use, No Respiratory Distress Cardiovascular: Regular Rate, Rhythm, No Edema, No Gallop, No JVD, No Murmur, Normal Peripheral Pulses Gastrointestinal: Normal Bowel Sounds, No Organomegaly, No Pulsatile Mass, Non Tender, Soft Back: Normal Inspection, No CVA Tenderness, No Vertebral Tenderness Extremity: Normal Capillary Refill, Normal Inspection, Normal Range of Motion, Non Tender, No Calf Tenderness, No Pedal Edema Neurologic/Psychiatric: Alert, Oriented x3, Abnormal Gait, Depressed Affect, Motor Weakness (generalized weakness), Other (tremor noted) Skin: Normal Color, Warm/Dry Lymphatic: No Adenopathy Results/Procedures Lab Laboratory Tests 12/01/22 05:44 Patient resulted labs reviewed. FIM Transfers Therapy Code Descriptions/Definitions Functional [place] Measure: 0=Not Assessed/NA 4=Minimal Assistance 1=Total Assistance 5=Supervision or Setup 2=Maximal Assistance 6=Modified [place] 3=Moderate Assistance 7=Complete IndependenceSCALE: Activities may be completed with or without assistive devices. 6-Rgxjstqvnc-qacfqfu completes the activity by him/herself with no assistance from a helper. 5-Set-up or Clean-up Assistance-helper sets up or cleans up; patient completes activity. [place] assists only prior to or following the activity. 4-Supervision or Touching Assistance-helper provides verbal cues and/or touching/steadying and/or contact guard assistance as patient completes activity . Assistance may be provided throughout the activity or intermittently. 3-Partial/Moderate Assistance-helper does LESS THAN HALF the effort. [place] lifts, holds or supports trunk or limbs, but provides less than half the effort. 2-Substantial/Maximal Assistance-helper does MORE THAN HALF the effort. [place] lifts or holds trunk or limbs and provides more than half the effort. 6-Cawxgdzkq-gaoduy does ALL the effort. Patient does none of the effort to complete the activity. Or, the assistance of 2 or more helpers is required for the patient to complete the activity. If activity was not attempted, code reason: 7-Patient Refused. 9-Not Applicable-not attempted and the patient did not perform the activity before the current illness, exacerbation or injury. 10-Not Attempted due to Environmental Limitations-(lack of equipment, weather restraints, etc.). 88-Not Attempted due to Medical Conditions or Safety Concerns. Assessment/Plan Assessment and Plan Assess & Plan/Chief Complaint Assessment: Parkinson's disease HLP HTN BPH Paranoia Plan: PT OT Fall risk Monitor closely 12/01/2022: Monitor closely Pain control (1) Parkinsons disease Status: Chronic (2) BPH (benign prostatic hyperplasia) Status: Chronic (3) HLD (hyperlipidemia) Status: Chronic (4) HTN (hypertension) Status: Chronic BRANDON BURTON DO December 01, 2022 07:35
[2022-12-01 08:18] VITALS: BP 120/73
[2022-12-01] MEDS: MIRABEGRON 25 MG TAB (MYRBETRIQ) PO SCH (08:21)
[2022-12-01] MEDS: lisINopril 10 MG (PRINIVIL) TABLET PO SCH (08:21)
[2022-12-01] MEDS: PROPRANOLOL 20 MG (INDERAL) TABLET PO SCH ×2 (08:21→20:54)
[2022-12-01] MEDS: SINEMET 25/100 (CARBIDOPA/LEVODOPA) TAB PO SCH ×3 (08:21→20:53)
[2022-12-01] MEDS: SENNA W/DOCUSATE (SENOKOT S) TABLET PO SCH ×2 (08:21→20:53)
[2022-12-01] MEDS: DOCUSATE SODIUM 100 MG (COLACE) CAP PO SCH ×2 (08:34→20:53)
[2022-12-01] MEDS: polyethylene glycoL POWDER 17 GM (MIRALAX) PACK PO SCH ×2 (08:34→20:54)
--- NOTE | 2022-12-01 11:22 | Physical Therapy Evaluation ---
PT Evaluation-General Medical Diagnosis Admission Date November 30, 2022 at 11:14 Medical Diagnosis: PARKINSON'S Onset Date: November 30, 2022 Therapy Diagnosis Therapy Diagnosis: Gait deficit, Strength deficit Precautions Precautions/Isolations: Fall Prevention, Standard Precautions Weight Bear Status Right Lower Extremity: Right Full Weight Bearing Left Lower Extremity: Left Full Weight Bearing Referral Physician: Dr. Spivey Reason for Referral: Evaluation/Treatment Medical History Pertinent Medical History: Parkinson's Reviewed History: Yes Social History Home: Single Level Current Living Status: Alone Entry Into Home: Stairs With Railing PT Steps Into Home: 3 Prior Prior Level of Function SCALE: Activities may be completed with or without assistive devices. 3-Iskhqexgyj-bnhxfig completes the activity by him/herself with no assistance from a helper. 5-Set-up or Clean-up Assistance-helper sets up or cleans up; patient completes activity. [place] assists only prior to or following the activity. 4-Supervision or Touching Assistance-helper provides verbal cues and/or touching/steadying and/or contact guard assistance as patient completes activity. Assistance may be provided throughout the activity or intermittently. 3-Partial/Moderate Assistance-helper does LESS THAN HALF the effort. Ace lifts, holds or supports trunk or limbs, but provides less than half the effort. 2-Substantial/Maximal Assistance-helper does MORE THAN HALF the effort. Ace lifts or holds trunk or limbs and provides more than half the effort. 5-Ekttwfepm-stvoan does ALL the effort. Patient does none of the effort to complete the activity. Or, the assistance of 2 or more helpers is required for the patient to complete the activity. If activity was not attempted, code reason: 7-Patient Refused. 9-Not Applicable-not attempted and the patient did not perform the activity before the current illness, exacerbation or injury. 10-Not Attempted due to Environmental Limitations-(lack of equipment, weather restraints, etc.). 88-Not Attempted due to Medical Conditions or Safety Concerns. Bed Mobility: 6 Transfers (B,C,W/C): 6 Gait: 6 Stairs: 6 Indoor Mobility (Ambulation): Independent Stairs: Independent Prior Devices Use: Walker PT Evaluation-Current Subjective Patient lying supine in bed, sitter in the room upon PT arrival, agreeable to treatment. Patient reports no pain at this time. Poor historian and due to current cognition subjective information may not be correct. Pain Section J - Health Conditions 1. Rarely or not at all 2. Occasionally 3. Frequently 4. Almost constantly 8. Unable to answer Pain Effect on Sleep: 1 Pain Interference with Therapy: 1 Pain Interference w/Day-to-Day: 1 Objective Patient Orientation: Person, Time ROM/Strength ROM Lower Extremities WLFs BLEs all planes Strength Lower Extremities 4-/5 BLEs all planes however patient demonstrates difficulty following commands for MMT Sensory Vision: Wears Glasses Hearing: Functional Sensation Right Lower Extremit: Intact Sensation Left Lower Extremity: Intact Transfers Roll Left & Right (QC): 3 Sit to Lying (QC): 3 Lying to Sitting/Side of Bed(Q: 3 Sit to Stand (QC): 4 Chair/Tuq-dx-Nbaox Xfer(QC): 4 Toilet Transfer (QC): 4 Car Transfer (QC): 3 Gait Does the Patient Walk?: Yes Mode of Locomotion: Walk Anticipated Mode of Locomotion: Walk Walk 10 feet (QC): 4 Walk 50 ft with 2 Turns(QC): 4 Walk 150 ft (QC): 4 Walking 10ft/uneven surface-QC: 4 Distance: 350 feet Gait Assistive Device: FWW Wheelchair Training Does the Pt Use a Wheelchair?: No Wheel 50 ft with 2 turns (QC): 9 Wheel 150 ft (QC): 9 Stairs #of Steps: 12 1 Step (curb) (QC): 4 4 Steps (QC): 4 12 Steps (QC): 4 Balance Sitting Static: Fair Sitting Dynamic: Fair Standing Static: Fair Standing Dynamic: Poor Picking up an Object (QC): 4 Special Test Comments Required significant amount of verbal cues to fern picker object. Assessment/Needs Patient tolerated treatment fair. Patient demonstrates difficulty following commands and at times significant safety awareness, however due to current cognition he demonstrates poor consistency. Patient performs all bed mobility with min A and moderate verbal cues. He performs all transfers with SBA, but especially with stand to sit, requires a significant amount of time, verbal cues and demonstration. Patient ambulates 350 feet with FWW, with SBA and verbal cues for safety, progression, control of walker and to avoid obstacles. Patient in bed post treatment with all needs met, sitter in the room, call light in hand, chair alarm activated. Rehab Potential: Fair PT Hydrometer Finisher Goals Hydrometer Finisher Goals PT Hydrometer Finisher Goals Time Frame: Jan 17, 2023 Roll Left to Right (QC): 6 Sit to Lying (QC): 6 Lying-Sitting on Side/Bed(QC): 6 Sit to Stand (QC): 6 Chair/Fog-pk-Wdxkl Xfer(QC): 6 Toilet/Commode Transfer (QC): 6 Car Transfer (QC): 6 Does the Patient Walk: Yes Walk 10 feet (QC): 6 Walk 10ft-Uneven Surface(QC): 6 Walk 50ft with 2 Turns (QC): 6 Walk 150 ft (QC): 6 Does the Pt use WC or Scooter?: No Wheel 50 feet with 2 turns (QC: 9 Wheel 150 feet: 9 1 Step (curb) (QC): 6 4 Steps (QC): 4 12 Steps (QC): 4 Picking up an Object (QC): 6 PT Plan Problem List Problem List: Activity Tolerance, Functional Strength, Safety, Balance, Gait, Transfer, Bed Mobility, ROM Treatment/Plan Treatment Plan: Continue Plan of Care Treatment Plan: Bed Mobility, Education, Functional Activity Kiarra, Functional Strength, Group Therapy, Gait, Safety Treatment Duration: Jan 17, 2023 Frequency: At least 5 of 7 days/Wk (IRF) Estimated Hrs Per Day: 1.5 hours per day Patient and/or Family Agrees t: Yes Safety Risks/Education Patient Education: Gait Training, Transfer Techniques, Steps Teaching Recipient: Patient Teaching Methods: Demonstration, Discussion Response to Teaching: Reinforcement Needed Time Time In: 1030 Time Out: 1105 DATE: December 01, 2022 Total Billed Treatment Time: 35 Total Billed Treatment Visit, NIRU COSTA JOHN A PT December 01, 2022 11:22
[2022-12-01] MEDS: ENOXAPARIN 40 MG/0.4 ML (LOVENOX) SYR SC SCH (13:55)
[2022-12-01] MEDS: TAMSULOSIN 0.4 MG (FLOMAX) CAP PO SCH (17:07)
[2022-12-01 19:17] VITALS: BP 82/55
[2022-12-01 20:00] VITALS: BP 102/59
[2022-12-01] MEDS: AtorvaSTATin TABLET 10 MG TABLET PO SCH (20:53)
[2022-12-01] MEDS: ALPRAZolam 0.25 MG (XANAX) TAB PO PRN (23:15)
--- NOTE | 2022-12-02 05:25 | PM&R Progress Note ---
Subjective HPI/CC On Admission Date Seen by Provider: December 02, 2022 Time Seen by Provider: 09:00 Subjective/Events-last exam 12/02/2022: Doing well Left great toe possible gout? PT OT initiated aggressive therapy 12/01/2022: Doing pretty well One on one sitter at bedside Confusion varies Paranoia at times Weakness At risk for NH Review of Systems General: Fatigue, Malaise Objective Exam Vital Signs Vital Signs Date Time Temp Pulse Resp B/P (MAP) Pulse Ox O2 Delivery O2 Flow Rate FiO2 12/02/22 20:20 36.5 89 16 118/64 (82) 96 Room Air Capillary Refill : General Appearance: No Apparent Distress, WD/WN, Chronically ill HEENT: PERRL/EOMI, Normal ENT Inspection, Pharynx Normal Neck: Full Range of Motion, Normal Inspection, Non Tender, Supple, Carotid Bruit Respiratory: Chest Non Tender, Lungs Clear, Normal Breath Sounds, No Accessory Muscle Use, No Respiratory Distress Cardiovascular: Regular Rate, Rhythm, No Edema, No Gallop, No JVD, No Murmur, Normal Peripheral Pulses Gastrointestinal: Normal Bowel Sounds, No Organomegaly, No Pulsatile Mass, Non Tender, Soft Back: Normal Inspection, No CVA Tenderness, No Vertebral Tenderness Extremity: Normal Capillary Refill, Normal Inspection, Normal Range of Motion, Non Tender, No Calf Tenderness, No Pedal Edema Neurologic/Psychiatric: Alert, Oriented x3, Abnormal Gait, Depressed Affect, Motor Weakness (generalized weakness), Other (tremor noted) Skin: Normal Color, Warm/Dry Lymphatic: No Adenopathy Results/Procedures Lab Patient resulted labs reviewed. FIM Transfers Therapy Code Descriptions/Definitions Functional Panther Burn Measure: 0=Not Assessed/NA 4=Minimal Assistance 1=Total Assistance 5=Supervision or Setup 2=Maximal Assistance 6=Modified [place] Burn 3=Moderate Assistance 7=Complete IndependenceSCALE: Activities may be completed with or without assistive devices. 5-Jqevxorfvz-notbtvw completes the activity by him/herself with no assistance from a helper. 5-Set-up or Clean-up Assistance-helper sets up or cleans up; patient completes activity. [place] assists only prior to or following the activity. 4-Supervision or Touching Assistance-helper provides verbal cues and/or touching/steadying and/or contact guard assistance as patient completes ac tivity. Assistance may be provided throughout the activity or intermittently. 3-Partial/Moderate Assistance-helper does LESS THAN HALF the effort. [place] lifts, holds or supports trunk or limbs, but provides less than half the effort. 2-Substantial/Maximal Assistance-helper does MORE THAN HALF the effort. [place] lifts or holds trunk or limbs and provides more than half the effort. 3-Vixrspyyi-xpgcpt does ALL the effort. Patient does none of the effort to complete the activity. Or, the assistance of 2 or more helpers is required for the patient to complete the activity. If activity was not attempted, code reason: 7-Patient Refused. 9-Not Applicable-not attempted and the patient did not perform the activity before the current illness, exacerbation or injury. 10-Not Attempted due to Environmental Limitations-(lack of equipment, weather restraints, etc.). 88-Not Attempted due to Medical Conditions or Safety Concerns. Roll Left to Right (QC): 3 Sit to Lying (QC): 3 Sit to Stand (QC): 4 Chair/Rug-ha-Bbkvn Xfer(QC): 4 Car Transfer (QC): 3 Gait Training Does the Patient Walk?: Yes Walk 10 feet (QC): 4 Walk 50 ft with 2 Turns(QC): 4 Walk 150 ft (QC): 4 Walking 10ft/uneven surface-QC: 4 Gait Assistive Device: FWW Wheelchair Training Does the Pt Use a Wheelchair?: No Wheel 50 ft with 2 turns (QC): 9 Wheel 150 ft (QC): 9 Stair Training #of Steps: 12 1 Step (curb) (QC): 4 4 Steps (QC): 4 12 Steps (QC): 4 Balance Picking up an Object (QC): 4 Assessment/Plan Assessment and Plan Assess & Plan/Chief Complaint Assessment: Parkinson's disease HLP HTN BPH Paranoia Gout? Left great toe Plan: PT OT Fall risk Monitor closely 12/01/2022: Monitor closely Pain control 12/02/2022: Colchicine vs prednisone (could increase paranoia) (1) Parkinsons disease Status: Chronic (2) BPH (benign prostatic hyperplasia) Status: Chronic (3) HLD (hyperlipidemia) Status: Chronic (4) HTN (hypertension) Status: Chronic BRANDON BURTON DO December 02, 2022 05:25
[2022-12-02 07:39] VITALS: BP_SYST 102; BP_SYST 116; BP_DIAS 59; BP_DIAS 67
[2022-12-02] MEDS: ACETAMINOPHEN 325 MG TABLET PO PRN (08:30)
[2022-12-02] MEDS: PROPRANOLOL 20 MG (INDERAL) TABLET PO SCH ×2 (08:30→20:28)
[2022-12-02] MEDS: MIRABEGRON 25 MG TAB (MYRBETRIQ) PO SCH (08:31)
[2022-12-02] MEDS: DOCUSATE SODIUM 100 MG (COLACE) CAP PO SCH ×2 (08:31→20:40)
[2022-12-02] MEDS: SINEMET 25/100 (CARBIDOPA/LEVODOPA) TAB PO SCH ×3 (08:31→20:30)
[2022-12-02] MEDS: lisINopril 10 MG (PRINIVIL) TABLET PO SCH (08:31)
--- NOTE | 2022-12-02 09:20 | Occupational Therapy Eval ---
OT Evaluation-General/PLF Medical Diagnosis Admission Date November 30, 2022 at 11:14 Medical Diagnosis: PARKINSON'S Onset Date: November 30, 2022 Therapy Diagnosis Therapy Diagnosis: decreased ADL status Precautions Precautions/Isolations: Fall Prevention, Standard Precautions Referral Physician: Dr. Spivey Referral Reason: Evaluation/Treatment Medical History Pertinent Medical History: Parkinson's Additional Medical History HTN, High cholesterol, Parkinson's Disease, BPH, prostate problems Current History Admitted to Acute floor with severe weakness, inability to ambulate or function at home due to severe Parkinsons, he did not take his medications for several days. Pt transferred to ARU 11/30/22. Social History Home: Single Level Current Living Status: Alone Entry Into Home: Stairs With Railing Steps Into Home: 3 ADL-Prior Level of Function SCALE: Activities may be completed with or without assistive devices. 9-Svpxiyxbks-csxxxqy completes the activity by him/herself with no assistance from a helper. 5-Set-up or Clean-up Assistance-helper sets up or cleans up; patient completes activity. [place] assists only prior to or following the activity. 4-Supervision or Touching Assistance-helper provides verbal cues and/or touching/steadying and/or contact guard assistance as patient completes activity. Assistance may be provided throughout the activity or intermittently. 3-Partial/Moderate Assistance-helper does LESS THAN HALF the effort. [place] lifts, holds or supports trunk or limbs, but provides less than half the effort. 2-Substantial/Maximal Assistance-helper does MORE THAN HALF the effort. [place] lifts or holds trunk or limbs and provides more than half the effort. 5-Utvsklstq-oxgobp does ALL the effort. Patient does none of the effort to complete the activity. Or, the assistance of 2 or more helpers is required for the patient to complete the activity. If activity was not attempted, code reason: 7-Patient Refused. 9-Not Applicable-not attempted and the patient did not perform the activity before the current illness, exacerbation or injury. 10-Not Attempted due to Environmental Limitations-(lack of equipment, weather restraints, etc.). 88-Not Attempted due to Medical Conditions or Safety Concerns. ADL PLOF Comments Chart review and pt indicates he lived alone at [facility] and was independent with ADLs. Pt denies using walker/cane at [facility]. Pt has a bathtub, denies having a shower or SC. Pt indicates he fills tub up partly with water and uses a cup to run water over himself. Later in tx, pt indicates he has a neighbor he calls for help with shirts when needed. PLOF unknown at this time due to pt being poor historian Self Care: Independent Functional Cognition: Independent OT Current Status Subjective Pt in bed, live sitter present. Pt agreeable to OT tx. Pt believes there are cameras located around his room, and that staff are using the cameras to make a video of him. OT attempted to redirect pt, but pt persevered on cameras being present. Mental Status/Objective Patient Orientation: Person, Confused Current Glasses/Contacts: Yes Hand Dominance: Right Upper Extremity ROM WFL, BUE shoulder flexion to approx 160 degrees Upper Extremity Coordination Decreased bilaterally due to tremors at rest and with activity. Upper Extremity Sensation WFL Upper Extremity Strength grossly 4-/5 ADL-Treatment Eating (QC): 3 (Per workforce staffing advisor report.) Oral Hygiene (QC): 3 Shower/Bathe Self (QC): 2 (Max A overall for thoroughness, max VCs.) Upper Body Dressing (QC): 2 (Max A overall and max VCs) Lower Body Dressing (QC): 2 (Max A overall and max VCs) On/Off Footwear (QC): 2 (Max A overall and max VCs.) Toileting Hygiene (QC): 2 (Max A overall and max VCS) Max VCs for sequencing of tasks. Other Treatments Pt in bed, transferred supine to sit EOB, mod A. Sit to stand from EOB required assist x2 with max verbal and tactile cues for UE placement. Once standing, min A using FWW to transfer to recliner. Pt completed sponge bath, dressing and ADLS at recliner. Pt required frequent redirection to task, as pt often got off topic and wanted to tell stories, or asked questions about the cameras he believes are watching him. Pt required max VCs for sequencing and attention to task. Min A sit to stand from recliner during ADL tx, verbal/tactile cues required for safety/positioning. Post tx. Pt in recliner, call light in reach and all needs met, live sitter present. Education OT Patient Education: Correct positioning, Energy conservation, Exercise program, Modified ADL techniques, Progress toward Goal/Update tx plan, Purpose of tx/functional activities, Rehab process Teaching Recipient: Patient Teaching Methods: Discussion Response to Teaching: Verbalize Understanding BIMS CAM BIMS Expression of Ideas and Wants: Difficulty Understanding Verbal Content: Sometimes Understands Brief Interview/Mental Status: Yes IRF DARRIAN BIMS: IRF DARRIAN BIMS Response (Comments) Value Repitition of Three Words Three 3 Recalls Socks No, Could Not Recall 0 Recalls Blue No, Could Not Recall 0 Recalls Bed No, Could Not Recall 0 Year Correct 3 Month Accurate Within 5 Days 2 Day Incorrect or No Answer 0 Total 8 CAM Mental Status Change/Baseline: 1 Inattention: 1 Disorganized thinkin Altered level of consciousness: 0 OT Short Term Goals Short Term Goals Time Frame: Dec 20, 2022 Shower/bathe self: 3 Lower body dressin Putting on/taking off footwear: 3 OT Photo Cartographer Goals Fpc Goals Time Frame: Jan 03, 2023 Eating (QC): 6 Oral Hygiene (QC): 6 Toileting Hygiene (QC): 6 Shower/Bathe Self (QC): 6 Upper Body Dressing (QC): 6 Lower Body Dressing (QC): 6 On/Off Footwear (QC): 6 Additional Goals: 1-Demonstrate ADL Tasks, 2-Verbalize Understanding, 3- ImproveStrength/[place] 1=Demonstrate adherence to instructed precautions during ADL tasks. 2=Patient will verbalize/demonstrate understanding of assistive device s/modifications for ADL. 3=Patient will improve strength/tolerance for activity to enable patient to perform ADL's. OT Education/Plan Problem List/Assessment Assessment: Decreased Activ Tolerance, Decreased Safety Aware, Decreased UE Strength, Impaired Cognition, Impaired Coordination, Impaired Funct Balance, Impaired I ADL's, Impaired Self-Care Skills, Restricted Funct UE ROM Discharge Recommendations Plan/Recommendations: Continue POC Equpiment Recommendations-D/C: Extended Bath Bench, Extended Shower Sprayer Treatment Plan/Plan of Care Patient would benefit from OT for education, treatment and training to promote independence in ADL's, mobility, safety and/or upper extremity function for ADL's. Plan of Care: ADL Retraining, Functional Mobility, Group Exercise/Act as Ind, UE Funct Exercise/Act Treatment Duration: Jan 03, 2023 Frequency: At least 5 of 7 days/Wk (IRF) Estimated Hrs Per Day: 1.5 hours per day Rehab Potential: Guarded Time Start Time: 07:55 Stop Time: 09:25 DATE: December 02, 2022 Total Time Billed (hr/min): 90 Billed Treatment Time 1, EVH (20'), ADL 5 (70') BRODIE READ OT December 02, 2022 09:20
[2022-12-02] MEDS: polyethylene glycoL POWDER 17 GM (MIRALAX) PACK PO SCH ×2 (09:43→20:27)
[2022-12-02] MEDS: SENNA W/DOCUSATE (SENOKOT S) TABLET PO SCH ×2 (09:44→20:29)
[2022-12-02] MEDS: COLCHICINE 0.6 MG (COLCRYS) TABLET PO SCH ×4 (10:28→20:39)
[2022-12-02] MEDS: ENOXAPARIN 40 MG/0.4 ML (LOVENOX) SYR SC SCH (13:27)
--- NOTE | 2022-12-02 13:49 | Physical Therapy Daily Note ---
PT Daily Note-Current Subjective Pt reports he is doing well today and is agreeable to treatment. Pt reported L great toe pain at 2/10. Pain Numeric Pain Scale: 2 Location: Left Location Body Site: Toe (L great toe ) Section J - Health Conditions 1. Rarely or not at all 2. Occasionally 3. Frequently 4. Almost constantly 8. Unable to answer Pain Effect on Sleep: 1 Pain Interference with Therapy: 1 Pain Interference w/Day-to-Day: 1 Transfers SCALE: Activities may be completed with or without assistive devices. 5-Oxqmqagfsx-lfnyefy completes the activity by him/herself with no assistance from a helper. 5-Set-up or Clean-up Assistance-helper sets up or cleans up; patient completes activity. [place] assists only prior to or following the activity. 4-Supervision or Touching Assistance-helper provides verbal cues and/or touching/steadying and/or contact guard assistance as patient completes activity. Assistance may be provided throughout the activity or intermittently. 3-Partial/Moderate Assistance-helper does LESS THAN HALF the effort. [place] lifts, holds or supports trunk or limbs, but provides less than half the effort. 2-Substantial/Maximal Assistance-helper does MORE THAN HALF the effort. [place] lifts or holds trunk or limbs and provides more than half the effort. 8-Evjehhhrm-yiqqhp does ALL the effort. Patient does none of the effort to complete the activity. Or, the assistance of 2 or more helpers is required for the patient to complete the activity. If activity was not attempted, code reason: 7-Patient Refused. 9-Not Applicable-not attempted and the patient did not perform the activity before the current illness, exacerbation or injury. 10-Not Attempted due to Environmental Limitations-(lack of equipment, weather restraints, etc.). 88-Not Attempted due to Medical Conditions or Safety Concerns. Sit to Stand (QC): 3 Chair/Ozz-vp-Xdmdi Xfer(QC): 3 Weight Bearing Right Lower Extremity: Right Full Weight Bearing Left Lower Extremity: Left Full Weight Bearing Gait Training Does the Patient Walk?: Yes Walk 10 feet (QC): 4 Walk 50 ft with 2 Turns(QC): 4 Walk 150 ft (QC): 4 Gait Persons Needed: 1 Gait Assistive Device: FWW Wheelchair Training Does the Pt Use a Wheelchair?: No Treatments Pt sitting up in the recliner upon arrival. Pt required Mod A to don B shooes. Pt required Mod/Min A for functional transfers, with Mod/Max v/c for correct hand placement, technique, and safety. Pt ambulated 150ft x 2 with the FWW and CGA/Min A and Mod v/c for safety. Pt completed seated B LE Ther Ex x 15 reps each with the red Tband. Pt completed sit to stand x 5 reps with Min/Mod A and Mod v/c. Assessment Current Status: Fair Progress Pt tolerated PT fair and requires several cues for safety and correct technique with all aspects of functional mobility. PT Fpc Goals Hybrid Technologist Goals PT Fpc Goals Time Frame: Jan 17, 2023 Roll Left & Right (QC): 6 Sit to Lying (QC): 6 Lying-Sitting on Side/Bed(QC): 6 Sit to Stand (QC): 6 Chair/Vqw-ny-Emzbe Xfer(QC): 6 Toilet Transfer (QC): 6 Car Transfer (QC): 6 Does the Patient Walk: Yes Walk 10 feet (QC): 6 Walk 50ft with 2 Turns (QC): 6 Walk 150 ft (QC): 6 Walking 10ft on Uneven Surface: 6 1 Step (curb) (QC): 6 4 Steps (QC): 4 12 Steps (QC): 4 Picking up an Object (QC): 6 Does the Pt use WC or Scooter?: No Wheel 50 feet with 2 turns (QC: 9 Wheel 150 feet: 9 PT Plan Problem List Problem List: Activity Tolerance, Functional Strength, Safety, Balance, Gait, Transfer, Bed Mobility Treatment/Plan Treatment Plan: Continue Plan of Care Treatment Plan: Bed Mobility, Education, Functional Activity Kiarra, Functional Strength, Group Therapy, Gait, Safety Treatment Duration: Jan 17, 2023 Frequency: At least 5 of 7 days/Wk (IRF) Estimated Hrs Per Day: 1.5 hours per day Patient and/or Family Agrees t: Yes Safety Risks/Education Patient Education: Gait Training, Transfer Techniques Teaching Recipient: Patient Teaching Methods: Demonstration, Discussion Response to Teaching: Reinforcement Needed Time Time In: 931 Time Out: 1031 DATE: December 02, 2022 Total Billed Treatment Time: 60 Total Billed Treatment 60 min 1 visit GT x 1 EX x 1 FA x 2 MIGUEL MOTT PT December 02, 2022 13:49
--- NOTE | 2022-12-02 13:58 | Physical Therapy Daily Note ---
PT Daily Note-Current Subjective Pt is supine in bed upon arrival, just awakening from a nap. Pt is agreeable to PT and reported L great toe pain at 5/10. Pain Numeric Pain Scale: 5-Moderate Pain Location: Left Location Body Site: Toe Section J - Health Conditions 1. Rarely or not at all 2. Occasionally 3. Frequently 4. Almost constantly 8. Unable to answer Pain Effect on Sleep: 2 Pain Interference with Therapy: 2 Pain Interference w/Day-to-Day: 2 Transfers SCALE: Activities may be completed with or without assistive devices. 7-Fcprsjmuoj-peigpys completes the activity by him/herself with no assistance from a helper. 5-Set-up or Clean-up Assistance-helper sets up or cleans up; patient completes activity. [place] assists only prior to or following the activity. 4-Supervision or Touching Assistance-helper provides verbal cues and/or touching/steadying and/or contact guard assistance as patient completes a ctivity. Assistance may be provided throughout the activity or intermittently. 3-Partial/Moderate Assistance-helper does LESS THAN HALF the effort. [place] lifts, holds or supports trunk or limbs, but provides less than half the effort. 2-Substantial/Maximal Assistance-helper does MORE THAN HALF the effort. [place] lifts or holds trunk or limbs and provides more than half the effort. 1-Nwhvsxyxc-kahotr does ALL the effort. Patient does none of the effort to complete the activity. Or, the assistance of 2 or more helpers is required for the patient to complete the activity. If activity was not attempted, code reason: 7-Patient Refused. 9-Not Applicable-not attempted and the patient did not perform the activity before the current illness, exacerbation or injury. 10-Not Attempted due to Environmental Limitations-(lack of equipment, weather restraints, etc.). 88-Not Attempted due to Medical Conditions or Safety Concerns. Lying to Sitting/Side of Bed(Q: 4 Sit to Stand (QC): 4 Toilet Transfer (QC): 4 Weight Bearing Right Lower Extremity: Right Full Weight Bearing Left Lower Extremity: Left Full Weight Bearing Gait Training Does the Patient Walk?: Yes Walk 10 feet (QC): 4 Walk 50 ft with 2 Turns(QC): 4 Walk 150 ft (QC): 4 Gait Persons Needed: 1 Gait Assistive Device: FWW Wheelchair Training Does the Pt Use a Wheelchair?: No Treatments Pt completed supine to sit with CGA. Pt completed functional transfers, including a toilet transfer, with CGA. Pt ambulated 300ft with the FWW, CGA, and w/c follow. Pt left sitting up in the recliner with staff present for lunch. Assessment Current Status: Fair Progress Pt showed improved ambulation tolerance, but cont to require Mod/Max v/c for improved safety and technique with all aspects of functional mobility. PT Spring Layer Goals Longterm Goals PT Longterm Goals Time Frame: Jan 17, 2023 Roll Left & Right (QC): 6 Sit to Lying (QC): 6 Lying-Sitting on Side/Bed(QC): 6 Sit to Stand (QC): 6 Chair/Dtv-zg-Jzyer Xfer(QC): 6 Toilet Transfer (QC): 6 Car Transfer (QC): 6 Does the Patient Walk: Yes Walk 10 feet (QC): 6 Walk 50ft with 2 Turns (QC): 6 Walk 150 ft (QC): 6 Walking 10ft on Uneven Surface: 6 1 Step (curb) (QC): 6 4 Steps (QC): 4 12 Steps (QC): 4 Picking up an Object (QC): 6 Does the Pt use WC or Scooter?: No Wheel 50 feet with 2 turns (QC: 9 Wheel 150 feet: 9 PT Plan Problem List Problem List: Activity Tolerance, Functional Strength, Safety, Balance, Gait, Transfer, Bed Mobility Treatment/Plan Treatment Plan: Continue Plan of Care Treatment Plan: Bed Mobility, Education, Functional Activity Kiarra, Functional Strength, Group Therapy, Gait, Safety Treatment Duration: Jan 17, 2023 Frequency: At least 5 of 7 days/Wk (IRF) Estimated Hrs Per Day: 1.5 hours per day Patient and/or Family Agrees t: Yes Safety Risks/Education Patient Education: Gait Training, Transfer Techniques Teaching Recipient: Patient Teaching Methods: Demonstration, Discussion Response to Teaching: Unable to Return Demonstration, Return Demonstration, Reinforcement Needed Time Time In: 1305 Time Out: 1335 DATE: December 02, 2022 Total Billed Treatment Time: 30 Total Billed Treatment 30 min 1 visit FA x 1 GT x 1 MIGUEL MOTT PT December 02, 2022 13:58
[2022-12-02] MEDS: TAMSULOSIN 0.4 MG (FLOMAX) CAP PO SCH (17:24)
[2022-12-02 20:20] VITALS: BP 118/64
[2022-12-02] MEDS: AtorvaSTATin TABLET 10 MG TABLET PO SCH (20:28)
[2022-12-02] MEDS: MELATONIN 3 MG TABLET PO PRN (20:30)
[2022-12-03] MEDS: ACETAMINOPHEN 325 MG TABLET PO PRN (01:44)
[2022-12-03] MEDS: ALPRAZolam 0.25 MG (XANAX) TAB PO PRN (01:44)
--- NOTE | 2022-12-03 05:20 | PM&R Progress Note ---
Subjective HPI/CC On Admission Date Seen by Provider: December 03, 2022 Time Seen by Provider: 09:00 Subjective/Events-last exam 12/03/2022: Confusion noted Gout doing a bit better At high risk for NHP No pain otherwise BM+ 12/02/2022: Doing well Left great toe possible gout? PT OT initiated aggressive therapy 12/01/2022: Doing pretty well One on one sitter at bedside Confusion varies Paranoia at times Weakness At risk for NH Review of Systems General: Fatigue, Malaise Objective Exam Vital Signs Vital Signs Date Time Temp Pulse Resp B/P (MAP) Pulse Ox O2 Delivery O2 Flow Rate FiO2 12/03/22 09:21 108/53 (71) 12/03/22 08:00 Room Air 12/03/22 07:35 36.5 79 16 91 Capillary Refill : General Appearance: No Apparent Distress, WD/WN, Chronically ill HEENT: PERRL/EOMI, Normal ENT Inspection, Pharynx Normal Neck: Full Range of Motion, Normal Inspection, Non Tender, Supple, Carotid Bruit Respiratory: Chest Non Tender, Lungs Clear, Normal Breath Sounds, No Accessory Muscle Use, No Respiratory Distress Cardiovascular: Regular Rate, Rhythm, No Edema, No Gallop, No JVD, No Murmur, Normal Peripheral Pulses Gastrointestinal: Normal Bowel Sounds, No Organomegaly, No Pulsatile Mass, Non Tender, Soft Back: Normal Inspection, No CVA Tenderness, No Vertebral Tenderness Extremity: Normal Capillary Refill, Normal Inspection, Normal Range of Motion, Non Tender, No Calf Tenderness, No Pedal Edema Neurologic/Psychiatric: Alert, Oriented x3, Abnormal Gait, Depressed Affect, Motor Weakness (generalized weakness), Other (tremor noted) Skin: Normal Color, Warm/Dry Lymphatic: No Adenopathy Results/Procedures Lab Patient resulted labs reviewed. FIM Transfers Therapy Code Descriptions/Definitions Functional [place] Measure: 0=Not Assessed/NA 4=Minimal Assistance 1=Total Assistance 5=Supervision or Setup 2=Maximal Assistance 6=Modified [place] 3=Moderate Assistance 7=Complete IndependenceSCALE: Activities may be completed with or without assistive devices. 1-Jlwgswutep-aorbgli completes the activity by him/herself with no assistance from a helper. 5-Set-up or Clean-up Assistance-helper sets up or cleans up; patient completes activity. [place] assists only prior to or following the activity. 4-Supervision or Touching Assistance-helper provides verbal cues and/or touching/steadying and/or contact guard assistance as patient completes activity. Assistance may be provided throughout the activity or intermittently. 3-Partial/Moderate Assistance-helper does LESS THAN HALF the effort. [place] lifts, holds or supports trunk or limbs, but provides less than half the effort. 2-Substantial/Maximal Assistance-helper does MORE THAN HALF the effort. [place] lifts or holds trunk or limbs and provides more than half the effort. 4-Nrkccpwbo-fycbij does ALL the effort. Patient does none of the effort to complete the activity. Or, the assistance of 2 or more helpers is required for the patient to complete the activity. If activity was not attempted, code reason: 7-Patient Refused. 9-Not Applicable-not attempted and the patient did not perform the activity before the current illness, exacerbation or injury. 10-Not Attempted due to Environmental Limitations-(lack of equipment, weather restraints, etc.). 88-Not Attempted due to Medical Conditions or Safety Concerns. Roll Left to Right (QC): 3 Sit to Lying (QC): 3 Sit to Stand (QC): 4 Chair/Tfa-jh-Tstfo Xfer(QC): 3 Car Transfer (QC): 3 Gait Training Does the Patient Walk?: Yes Walk 10 feet (QC): 4 Walk 50 ft with 2 Turns(QC): 4 Walk 150 ft (QC): 4 Walking 10ft/uneven surface-QC: 4 Gait Persons Needed: 1 Gait Assistive Device: FWW Wheelchair Training Does the Pt Use a Wheelchair?: No Wheel 50 ft with 2 turns (QC): 9 Wheel 150 ft (QC): 9 Stair Training #of Steps: 12 1 Step (curb) (QC): 4 4 Steps (QC): 4 12 Steps (QC): 4 Balance Picking up an Object (QC): 4 ADL-Treatment Eating (QC): 3 (Per staff trainer report.) Oral Hygiene (QC): 3 Shower/Bathe Self (QC): 2 (Max A overall for thoroughness, max VCs.) Upper Body Dressing (QC): 2 (Max A overall and max VCs) Lower Body Dressing (QC): 2 (Max A overall and max VCs) On/Off Footwear (QC): 2 (Max A overall and max VCs.) Toileting Hygiene (QC): 2 (Max A overall and max VCS) Assessment/Plan Assessment and Plan Assess & Plan/Chief Complaint Assessment: Parkinson's disease HLP HTN BPH Paranoia Gout? Left great toe Plan: PT OT Fall risk Monitor closely 12/01/2022: Monitor closely Pain control 12/02/2022: Colchicine vs prednisone (could increase paranoia) 12/03/2022: Monitor closely NHP? (1) Parkinsons disease Status: Chronic (2) BPH (benign prostatic hyperplasia) Status: Chronic (3) HLD (hyperlipidemia) Status: Chronic (4) HTN (hypertension) Status: Chronic BRANDON BUTRON DO December 03, 2022 05:20
--- NOTE | 2022-12-03 05:22 | Individualized Plan of Care ---
Individualized Plan of Care Rehab Nursing IPOC Order Admission Date November 30, 2022 at 11:14 Current Orders Orders Admission Order(Inpt,Obs,Sdc) (11/30/22 10:20) Vital Signs: Per Unit Policy ( 08,16,00 (11/30/22 10:20) Luis Armando Petty , (11/30/22 10:20) Sequential Compression Device (11/30/22 10:20) Usability Specialist-Inpt Rehab Con (11/30/22 10:20) Rehab Nursing Orders-Ipoc (11/30/22 10:20) Physical Therapy Rehab Orders (11/30/22 10:20) Occupational Therapy Rehab Ord (11/30/22 10:20) Speech Therapy Rehab Orders (11/30/22 10:20) Cbc With Automated Diff (12/01/22 06:00) Comprehensive Metabolic Panel (12/01/22 06:00) Precautions (Aru) (11/30/22 10:20) Weekly Weight WEEK (11/30/22 10:20) Rehab-Intensity Of Therapy (11/30/22 10:20) Initiate Admission Nursing Pro .admission (11/30/22 10:20) Alprazolam Tablet (Xanax Tablet) (11/30/22 10:30) Calcium Carbonate Chew Tablet (Antacid C (11/30/22 10:30) Diphenhydramine Tablet (Benadryl Tablet) (11/30/22 10:30) Docusate Sodium Capsule (Colace Capsule) (11/30/22 21:00) Docusate Sodium Capsule (Colace Capsule) (11/30/22 10:30) Bisacodyl Suppository (Dulcolax Supposit (11/30/22 10:30) Lactulose Oral Solution (Enulose Oral So (11/30/22 10:30) Na Phos/Na Biphos Enema (Fleet Enema Salomon (11/30/22 10:30) Guaifenesin/Codeine Syrup (Robitussin Ac (11/30/22 10:30) Loperamide Tablet (Imodium Tablet) (11/30/22 10:30) Melatonin Tablet (Melatonin Tablet) (11/30/22 10:30) Polyethylene Glycol Powder Pkt (Miralax (11/30/22 21:00) Ondansetron Oral Dissolve Tab (Zofran (11/30/22 10:30) Senna S Tablet (Senokot S Tablet) (11/30/22 21:00) Acetaminophen Tablet/Caplet (Tylenol T (11/30/22 10:30) Initiate Admission Nursing Pro .admission (11/30/22 10:20) Admission Arrival Bed Request (11/30/22 11:14) Ensure Plus Vanilla (11/30/22 11:53) General/Regular (11/30/22 Breakfast) Enoxaparin Injection (Lovenox Injection) (11/30/22 12:30) Carbidopa/Levodopa 25/100 (Sinemet 25/10 (11/30/22 21:00) Lisinopril Tablet (Zestril Tablet) (12/01/22 09:00) Mirabegron Tab (Myrbetriq Tablet) (12/01/22 08:00) Propranolol Tablet (Inderal Tablet) (11/30/22 21:00) Tamsulosin Capsule (Flomax Capsule) (11/30/22 18:00) Atorvastatin Tablet (Lipitor Tablet) (11/30/22 21:00) Code/Resuscitation (11/30/22 17:49) Patient Visit (12/01/22 ) Pt Eval Moderate Complexity (12/01/22 ) Gait Training, Ea 15 Min (12/01/22 ) Erythrocyte Sedimentation Rate (12/02/22 09:03) Uric Acid (12/02/22 09:03) Colchicine Tablet (Colcrys Tablet) (12/02/22 09:15) Bladder Scan (12/02/22 09:13) Patient Visit (12/02/22 ) Gait Training, Ea 15 Min (12/02/22 ) Exercise Therap, Ea 15 Min (12/02/22 ) Functional Activities, Ea 15 (12/02/22 ) Patient Visit (12/02/22 ) Functional Activities, Ea 15 (12/02/22 ) Gait Training, Ea 15 Min (12/02/22 ) Rehab Nursing Orders: Ongoing Assess. of Cognitive Status, Ongoing Assess. of Function Status, Bladder Management, Bladder Scan, Bladder Training, Bowel Management, Bowel Training, Disease Management & Educaiton, DVT Prophylaxis, Fall Prevention, Fluid/Electrolyte/Nutrition Mgmt, Infection Prevention, Medication Management & Education, Management of Risks & Complications, Management of Skin Intergrity, Nutrition Management, Pain Management, Patient/Family Support, Safety Management Intensity of Therapy to be met Patient to be seen: Min.3h per day/5 of 7d PT IPOC Problem List: Activity Tolerance, Functional Strength, Safety, Balance, Gait, Transfer, Bed Mobility Treatment Plan: Continue Plan of Care Bed Mobility, Education, Functional Activity Kiarra, Functional Strength, Group Therapy, Gait, Safety Treatment Duration: Jan 17, 2023 Frequency: At least 5 of 7 days/Wk (IRF) Estimated Hrs Per Day: 1.5 hours per day OT IPOC Problems: Decreased Activ Tolerance, Decreased Safety Aware, Decreased UE Str ength, Impaired Cognition, Impaired Coordination, Impaired Funct Balance, Impaired I ADL's, Impaired Self-Care Skills, Restricted Funct UE ROM OT Treatment, Training and Edu: Yes Plan of Care: ADL Retraining, Functional Mobility, Group Exercise/Act as Ind, UE Funct Exercise/Act Treatment Duration: Jan 03, 2023 Frequency: At least 5 of 7 days/Wk (IRF) Estimated Hrs Per Day: 1.[address] IPOC Speech Therapy Treatment Plan: Discontinue ST Treatment Duration: December 02, 2022 Frequency: Modified Program (IRF) Estimated Hrs Per Day: Other Usability Specialist/Case Mgmt Usability Specialist/Case Managemen: Discharge Planning Dietitian/Air Commodore Dietitian/Air Commodore to monitor nutritional status and make changes and/or recommendations as needed and work with speech pathology on dietary upgrades as the occur. Physician IPOC Medical Issues being managed closely and that require the 24 hour availability of a physician: Recent catastrophic PD decompensation due to not taking meds he will require close monitoring for any further decline causing further disability Medical Issues: Bowel/Bladder Function, DVT Prophylaxis, Falls Precautions, Fluid/Electrolyte/Nutrition Balance, Infection Protection, Pain Management Brief Synthesis of Preadmission Screen, Post-Admission Evaluation, and Therapy Evaluations: PT OT will focus on regaining function with the use of AD in order to regain independence and ADL's in order to return home to live independently Medical Prognosis: Fair Anticipated Length of Stay: 7 days BRANDON BURTON DO December 03, 2022 05:22
[2022-12-03 07:35] VITALS: BP 96/53
[2022-12-03] MEDS: COLCHICINE 0.6 MG (COLCRYS) TABLET PO SCH (08:00)
[2022-12-03] MEDS: MIRABEGRON 25 MG TAB (MYRBETRIQ) PO SCH (08:00)
[2022-12-03] MEDS: SINEMET 25/100 (CARBIDOPA/LEVODOPA) TAB PO SCH ×3 (08:00→19:52)
[2022-12-03] MEDS ORDERED: COLCHICINE 0.6 MG (COLCRYS) TABLET PO PRN (09:15)
[2022-12-03] MEDS: polyethylene glycoL POWDER 17 GM (MIRALAX) PACK PO SCH ×2 (09:16→20:00)
[2022-12-03] MEDS: DOCUSATE SODIUM 100 MG (COLACE) CAP PO SCH ×2 (09:16→20:00)
[2022-12-03] MEDS: SENNA W/DOCUSATE (SENOKOT S) TABLET PO SCH ×2 (09:17→20:00)
[2022-12-03 09:21] VITALS: BP 108/53
--- NOTE | 2022-12-03 09:30 | Occupational Ther Daily Note ---
OT Current Status-Daily Note Subjective Pt in recliner, live sitter present prior to and post tx. Mental Status/Objective Patient Orientation: Person, Confused ADL-Treatment Therapy Code Descriptions/Definitions Functional [place] Measure: 0=Not Assessed/NA 4=Minimal Assistance 1=Total Assistance 5=Supervision or Setup 2=Maximal Assistance 6=Modified [place] 3=Moderate Assistance 7=Complete IndependenceSCALE: Activities may be completed with or without assistive devices. 6-Iptwdeglvd-xxepjql completes the activity by him/herself with no assistance from a helper. 5-Set-up or Clean-up Assistance-helper sets up or cleans up; patient completes activity. [place] assists only prior to or following the activity. 4-Supervision or Touching Assistance-helper provides verbal cues and/or touching/steadying and/or contact guard assistance as patient completes activity. Assistance may be provided throughout the activity or intermittently. 3-Partial/Moderate Assistance-helper does LESS THAN HALF the effort. [place] lifts, holds or supports trunk or limbs, but provides less than half the effort. 2-Substantial/Maximal Assistance-helper does MORE THAN HALF the effort. [place] lifts or holds trunk or limbs and provides more than half the effort. 3-Nxbntluna-vgymhy does ALL the effort. Patient does none of the effort to complete the activity. Or, the assistance of 2 or more helpers is required for the patient to complete the activity. If activity was not attempted, code reason: 7-Patient Refused. 9-Not Applicable-not attempted and the patient did not perform the activity before the current illness, exacerbation or injury. 10-Not Attempted due to Environmental Limitations-(lack of equipment, weather restraints, etc.). 88-Not Attempted due to Medical Conditions or Safety Concerns. On/Off Footwear: 2 (Max A with max verbal/tactile cues.) Other Treatment Pt in recliner, doffed gripper socks with moderate assistance. Pt then donned regular socks and slip on shoes, max A overall and max verbal/tactile cues. Pt required increased time and frequent redirection to task, as pt often asked what he was supposed to do. Pt required ~45 mins to complete footwear. Pt stood from lift chair, min A with max VCs for sequencing. Pt transferred to w/c, CGA with max VCs. Pt taken to therapy gym via w/c. In order to increase BUE strength and activity tolerance, pt completed arm bike x10 mins, 20 Watt resistance, 1 rest break. Pt required frequent VCs and hand over hand assist to continue with task, as pt's pace slowed down to where pt was almost not moving UEs at all. OT provided education on weighted utensils to decrease tremors. Pt able to use weighted utensils in R hand with 1 lb weight on R wrist to successfully scoop beads from plate and place them into container. When 1lb wrist weight was removed, pt had more beads spill off of weighted spoon. OT provided education on recommendation of weighted utensil and wrist weight to live sitter in order for pt to attempt device at lunch, sitter verbalized understanding. Pt taken to [facility] via w/c, pt requests to remain out of room at this time. Pt positioned to comfort at [facility] table with live sitter, all needs met. Education OT Patient Education: Correct positioning, Energy conservation, Modified ADL techniques, Progress toward Goal/Update tx plan, Purpose of tx/functional activities, Rehab process, Safety issues, Transfer techniques, Use of adapted equipment Teaching Recipient: Patient Teaching Methods: Discussion Response to Teaching: Reinforcement Needed OT Short Term Goals Short Term Goals Time Frame: Dec 20, 2022 Shower/bathe self: 3 Lower body dressin Putting on/taking off footwear: 3 OT Sugar Chipper Machine Operator Goals Detention Goals Time Frame: Jan 03, 2023 Acute change in mental status: 1 Inattention: 1 Disorganized thinkin Altered level of consciousness: 0 Eating (QC): 6 Oral Hygiene (QC): 6 Toileting Hygiene (QC): 6 Shower/Bathe Self (QC): 6 Upper Body Dressing (QC): 6 Lower Body Dressing (QC): 6 On/Off Footwear (QC): 6 Additional Goals: 1-Demonstrate ADL Tasks, 2-Verbalize Understanding, 3-Imp roveStrength/Kiarra 1=Demonstrate adherence to instructed precautions during ADL tasks. 2=Patient will verbalize/demonstrate understanding of assistive devices/modifications for ADL. 3=Patient will improve strength/tolerance for activity to enable patient to perform ADL's. OT Education/Plan Problem List/Assessment Assessment: Decreased Activ Tolerance, Decreased Safety Aware, Decreased UE Strength, Impaired Cognition, Impaired Coordination, Impaired Funct Balance, Impaired I ADL's, Impaired Self-Care Skills Discharge Recommendations Plan/Recommendations: Continue POC Treatment Plan/Plan of Care Patient would benefit from OT for education, treatment and training to promote independence in ADL's, mobility, safety and/or upper extremity function for ADL's. Plan of Care: ADL Retraining, Functional Mobility, Group Exercise/Act as Ind, UE Funct Exercise/Act Treatment Duration: Jan 03, 2023 Frequency: At least 5 of 7 days/Wk (IRF) Estimated Hrs Per Day: 1.5 hours per day Rehab Potential: Guarded Time Start Time: 07:35 Stop Time: 09:05 DATE: December 03, 2022 Total Time Billed (hr/min): 90 Billed Treatment Time 1, ADL 3 (45'), EX (15'), FA 2 (30') BRODIE READ OT December 03, 2022 09:30
[2022-12-03] MEDS: lisINopril 10 MG (PRINIVIL) TABLET PO SCH (09:51)
[2022-12-03] MEDS: PROPRANOLOL 20 MG (INDERAL) TABLET PO SCH ×2 (09:51→20:00)
--- NOTE | 2022-12-03 10:30 | Speech Therapy Progress Note ---
Therapy Progress Note Speech pathology received a "cognitive training" consultation for the patient as a part of the group acute rehabilitation order set at admission. At this time, skilled speech pathology services have not been requested or warranted by specific contact. The patient appears to be displaying behavior of confusion and paranoia per chart review. If the patient's behaviors clear, speech pathology may be appropriate. Please re-consult speech pathology with any changes or concerns. Thank you. SHAMAR DELUCA December 03, 2022 10:30
--- NOTE | 2022-12-03 11:30 | Physical Therapy Daily Note ---
PT Daily Note-Current Subjective Pt reports he is doing okay today and is agreeable to treatment. Pt reports he slept well. Pt reported L great toe pain at 5/10. Pain Numeric Pain Scale: 5-Moderate Pain Location: Left Location Body Site: Toe Section J - Health Conditions 1. Rarely or not at all 2. Occasionally 3. Frequently 4. Almost constantly 8. Unable to answer Pain Effect on Sleep: 2 Pain Interference with Therapy: 2 Pain Interference w/Day-to-Day: 2 Transfers SCALE: Activities may be completed with or without assistive devices. 8-Cqzozdpbnw-gloppyc completes the activity by him/herself with no assistance from a helper. 5-Set-up or Clean-up Assistance-helper sets up or cleans up; patient completes activity. [place] assists only prior to or following the activity. 4-Supervision or Touching Assistance-helper provides verbal cues and/or touching/steadying and/or contact guard assistance as patient completes activity. Assistance may be provided throughout the activity or intermittently. 3-Partial/Moderate Assistance-helper does LESS THAN HALF the effort. [place] lifts, holds or supports trunk or limbs, but provides less than half the effort. 2-Substantial/Maximal Assistance-helper does MORE THAN HALF the effort. [place] lifts or holds trunk or limbs and provides more than half the effort. 5-Gqrjmpeqy-bisvou does ALL the effort. Patient does none of the effort to complete the activity. Or, the assistance of 2 or more helpers is required for the patient to complete the activity. If activity was not attempted, code reason: 7-Patient Refused. 9-Not Applicable-not attempted and the patient did not perform the activity before the current illness, exacerbation or injury. 10-Not Attempted due to Environmental Limitations-(lack of equipment, weather restraints, etc.). 88-Not Attempted due to Medical Conditions or Safety Concerns. Sit to Stand (QC): 4 Chair/Ety-io-Zvkcx Xfer(QC): 4 Toilet Transfer (QC): 4 Weight Bearing Right Lower Extremity: Right Full Weight Bearing Left Lower Extremity: Left Full Weight Bearing Gait Training Does the Patient Walk?: Yes Walk 10 feet (QC): 4 Walk 50 ft with 2 Turns(QC): 4 Walk 150 ft (QC): 4 Gait Persons Needed: 1 Gait Assistive Device: FWW Wheelchair Training Does the Pt Use a Wheelchair?: Yes Wheel 50 ft with 2 turns (QC): 3 Wheel 150 ft (QC): 3 Type of Wheelchair: Manual Treatments Pt completed functional transfers, including a toilet transfer with CGA and Max v/c for hand placement, correct technique, and safety. Pt ambulated 180ft, 160ft, and 60ft with the FWW and CGA and Mod v/c for keeping the FWW close, improved safety, and B step height/length. Pt completed w/c mobility with Min v/c. Pt completed seated B LE Ther Ex x 20 reps each with the red Tband. Pt completed sit to stand x 5 reps with Max v/c for hand placement. Pt required extra time to complete all tasks, as well as verbal and tactile cues for improved safety and technique. Assessment Current Status: Fair Progress Pt tolerated PT fair and cont to require Max v/c PT Senior Care Goals Web Marketing Intern Goals PT Web Marketing Intern Goals Time Frame: Jan 17, 2023 Roll Left & Right (QC): 6 Sit to Lying (QC): 6 Lying-Sitting on Side/Bed(QC): 6 Sit to Stand (QC): 6 Chair/Lho-da-Oijck Xfer(QC): 6 Toilet Transfer (QC): 6 Car Transfer (QC): 6 Does the Patient Walk: Yes Walk 10 feet (QC): 6 Walk 50ft with 2 Turns (QC): 6 Walk 150 ft (QC): 6 Walking 10ft on Uneven Surface: 6 1 Step (curb) (QC): 6 4 Steps (QC): 4 12 Steps (QC): 4 Picking up an Object (QC): 6 Does the Pt use WC or Scooter?: No Wheel 50 feet with 2 turns (QC: 9 Wheel 150 feet: 9 PT Plan Problem List Problem List: Activity Tolerance, Functional Strength, Safety, Balance, Gait, Transfer, Bed Mobility Treatment/Plan Treatment Plan: Continue Plan of Care Treatment Plan: Bed Mobility, Education, Functional Activity Kiarra, Functional Strength, Group Therapy, Gait, Safety Treatment Duration: Jan 17, 2023 Frequency: At least 5 of 7 days/Wk (IRF) Estimated Hrs Per Day: 1.5 hours per day Patient and/or Family Agrees t: Yes Safety Risks/Education Patient Education: Gait Training, Transfer Techniques, W/C Management, Safety Issues Teaching Recipient: Patient Teaching Methods: Demonstration, Discussion Response to Teaching: Return Demonstration, Reinforcement Needed Discharge Recommendations Therapy Discharge Recommendati: 24 Hour Supervision Equpiment Recommendations-D/C: Front Wheeled Walker, Manual Wheelchair Barriers to Progress poor safety awareness and poor carry-over Time Time In: 932 Time Out: 1102 DATE: December 03, 2022 Total Billed Treatment Time: 90 Total Billed Treatment 90 min 1 visit GT x 2 EX x 2 FA x 2 MIGUEL MOTT PT December 03, 2022 11:30
[2022-12-03] MEDS: ENOXAPARIN 40 MG/0.4 ML (LOVENOX) SYR SC SCH (13:18)
[2022-12-03] MEDS: TAMSULOSIN 0.4 MG (FLOMAX) CAP PO SCH (18:22)
[2022-12-03 19:17] VITALS: BP 94/54
[2022-12-03] MEDS: AtorvaSTATin TABLET 10 MG TABLET PO SCH (19:52)
[2022-12-03] MEDS: MELATONIN 3 MG TABLET PO PRN (19:53)
--- NOTE | 2022-12-04 05:20 | PM&R Progress Note ---
Subjective HPI/CC On Admission Date Seen by Provider: December 04, 2022 Time Seen by Provider: 12:00 Subjective/Events-last exam 12/04/2022: No major changes Improved overall Confusion at times Fall risk 12/03/2022: Confusion noted Gout doing a bit better At high risk for NHP No pain otherwise BM+ 12/02/2022: Doing well Left great toe possible gout? PT OT initiated aggressive therapy 12/01/2022: Doing pretty well One on one sitter at bedside Confusion varies Paranoia at times Weakness At risk for NH Review of Systems General: Fatigue, Malaise Neurological: Confusion Objective Exam Vital Signs Vital Signs Date Time Temp Pulse Resp B/P (MAP) Pulse Ox O2 Delivery O2 Flow Rate FiO2 12/04/22 12:30 76 18 125/69 (87) 94 Room Air 12/04/22 07:29 36.6 Capillary Refill : General Appearance: No Apparent Distress, WD/WN, Chronically ill HEENT: PERRL/EOMI, Normal ENT Inspection, Pharynx Normal Neck: Full Range of Motion, Normal Inspection, Non Tender, Supple, Carotid Bruit Respiratory: Chest Non Tender, Lungs Clear, Normal Breath Sounds, No Accessory Muscle Use, No Respiratory Distress Cardiovascular: Regular Rate, Rhythm, No Edema, No Gallop, No JVD, No Murmur, Normal Peripheral Pulses Gastrointestinal: Normal Bowel Sounds, No Organomegaly, No Pulsatile Mass, Non Tender, Soft Back: Normal Inspection, No CVA Tenderness, No Vertebral Tenderness Extremity: Normal Capillary Refill, Normal Inspection, Normal Range of Motion, Non Tender, No Calf Tenderness, No Pedal Edema Neurologic/Psychiatric: Alert, Oriented x3, Abnormal Gait, Depressed Affect, Motor Weakness (generalized weakness), Other (tremor noted) Skin: Normal Color, Warm/Dry Lymphatic: No Adenopathy Results/Procedures Lab Patient resulted labs reviewed. FIM Transfers Therapy Code Descriptions/Definitions Functional [place] Measure: 0=Not Assessed/NA 4=Minimal Assistance 1=Total Assistance 5=Supervision or Setup 2=Maximal Assistance 6=Modified [place] 3=Moderate Assistance 7=Complete IndependenceSCALE: Activities may be completed with or without assistive devices. 9-Xualaqzicu-ejrvcfz completes the activity by him/herself with no assistance from a helper. 5-Set-up or Clean-up Assistance-helper sets up or cleans up; patient completes activity. [place] assists only prior to or following the activity. 4-Supervision or Touching Assistance-helper provides verbal cues and/or touching/steadying and/or contact guard assistance as patient completes activity. Assistance may be provided throughout the activity or intermittently. 3-Partial/Moderate Assistance-helper does LESS THAN HALF the effort. [place] lifts, holds or supports trunk or limbs, but provides less than half the effort. 2-Substantial/Maximal Assistance-helper does MORE THAN HALF the effort. [place] lifts or holds trunk or limbs and provides more than half the effort. 0-Orcrtkncs-hitltc does ALL the effort. Patient does none of the effort to complete the activity. Or, the assistance of 2 or more helpers is required for the patient to complete the activity. If activity was not attempted, code reason: 7-Patient Refused. 9-Not Applicable-not attempted and the patient did not perform the activity before the current illness, exacerbation or injury. 10-Not Attempted due to Environmental Limitations-(lack of equipment, weather restraints, etc.). 88-Not Attempted due to Medical Conditions or Safety Concerns. Roll Left to Right (QC): 3 Sit to Lying (QC): 3 Sit to Stand (QC): 4 Chair/Rhb-st-Febqu Xfer(QC): 4 Car Transfer (QC): 3 Gait Training Does the Patient Walk?: Yes Walk 10 feet (QC): 4 Walk 50 ft with 2 Turns(QC): 4 Walk 150 ft (QC): 4 Walking 10ft/uneven surface-QC: 4 Gait Persons Needed: 1 Gait Assistive Device: FWW Wheelchair Training Does the Pt Use a Wheelchair?: Yes Wheel 50 ft with 2 turns (QC): 3 Wheel 150 ft (QC): 3 Type of Wheelchair: Manual Stair Training #of Steps: 12 1 Step (curb) (QC): 4 4 Steps (QC): 4 12 Steps (QC): 4 Balance Picking up an Object (QC): 4 ADL-Treatment Eating (QC): 3 (Per staff submarine warfare officer report.) Oral Hygiene (QC): 3 Shower/Bathe Self (QC): 2 (Max A overall for thoroughness, max VCs.) Upper Body Dressing (QC): 2 (Max A overall and max VCs) Lower Body Dressing (QC): 2 (Max A overall and max VCs) On/Off Footwear (QC): 2 (Max A with max verbal/tactile cues.) Toileting Hygiene (QC): 2 (Max A overall and max VCS) Assessment/Plan Assessment and Plan Assess & Plan/Chief Complaint Assessment: Parkinson's disease HLP HTN BPH Paranoia Gout? Left great toe Plan: PT OT Fall risk Monitor closely 12/01/2022: Monitor closely Pain control 12/02/2022: Colchicine vs prednisone (could increase paranoia) 12/03/2022: Monitor closely NHP? 12/04/2022: Monitor closely Fall risk (1) Parkinsons disease Status: Chronic (2) BPH (benign prostatic hyperplasia) Status: Chronic (3) HLD (hyperlipidemia) Status: Chronic (4) HTN (hypertension) Status: Chronic BRANDON BURTON DO December 04, 2022 05:20
[2022-12-04 07:28] VITALS: BP 94/54
[2022-12-04 07:29] VITALS: BP 93/59
[2022-12-04 07:45] VITALS: BP 101/60
[2022-12-04] MEDS: DOCUSATE SODIUM 100 MG (COLACE) CAP PO SCH ×2 (07:53→20:17)
[2022-12-04] MEDS: MIRABEGRON 25 MG TAB (MYRBETRIQ) PO SCH (07:53)
[2022-12-04] MEDS: PROPRANOLOL 20 MG (INDERAL) TABLET PO SCH ×2 (07:54→20:15)
[2022-12-04] MEDS: SINEMET 25/100 (CARBIDOPA/LEVODOPA) TAB PO SCH ×3 (07:55→20:17)
[2022-12-04] MEDS: polyethylene glycoL POWDER 17 GM (MIRALAX) PACK PO SCH ×2 (07:55→20:14)
[2022-12-04] MEDS: SENNA W/DOCUSATE (SENOKOT S) TABLET PO SCH ×2 (07:56→20:17)
[2022-12-04] MEDS: lisINopril 10 MG (PRINIVIL) TABLET PO SCH (09:08)
--- NOTE | 2022-12-04 09:50 | Occupational Ther Daily Note ---
OT Current Status-Daily Note Subjective Pt agreeable to OT Tx. Mental Status/Objective Patient Orientation: Person, Confused ADL-Treatment Therapy Code Descriptions/Definitions Functional [place] Measure: 0=Not Assessed/NA 4=Minimal Assistance 1=Total Assistance 5=Supervision or Setup 2=Maximal Assistance 6=Modified [place] 3=Moderate Assistance 7=Complete IndependenceSCALE: Activities may be completed with or without assistive devices. 7-Txktkxtvyk-aukccad completes the activity by him/herself with no assistance from a helper. 5-Set-up or Clean-up Assistance-helper sets up or cleans up; patient completes activity. [place] assists only prior to or following the activity. 4-Supervision or Touching Assistance-helper provides verbal cues and/or touching/steadying and/or contact guard assistance as patient completes activi ty. Assistance may be provided throughout the activity or intermittently. 3-Partial/Moderate Assistance-helper does LESS THAN HALF the effort. [place] lifts, holds or supports trunk or limbs, but provides less than half the effort. 2-Substantial/Maximal Assistance-helper does MORE THAN HALF the effort. [place] lifts or holds trunk or limbs and provides more than half the effort. 4-Iffepstkl-nomhtn does ALL the effort. Patient does none of the effort to complete the activity. Or, the assistance of 2 or more helpers is required for the patient to complete the activity. If activity was not attempted, code reason: 7-Patient Refused. 9-Not Applicable-not attempted and the patient did not perform the activity before the current illness, exacerbation or injury. 10-Not Attempted due to Environmental Limitations-(lack of equipment, weather restraints, etc.). 88-Not Attempted due to Medical Conditions or Safety Concerns. Lower Body Dressing (QC): 2 On/Off Footwear: 2 Other Treatment [id number]: Pt up in recliner, agreeable to OT Tx. Pt completed footwear and LE dressing with max A overall and moderate VCs. Pt stood from recliner, requiring hand over hand assistance with UE placement for sit to/from stand transfer. Mod A sit to stand from recliner, then CGA to transfer to w/c. [id number]: OT/PT cotreat due to skill of 2 clinicians required which a vocational rehabilitation specialist could not perform in order to coordinate UE/LEs, decrease fall risk, focus on higher level balance tasks, and due to pt's limitations in strength, activity tolerance, mobility/transfers, and standing balance. OT focused on UE placement and cues for sequencing and safety, PT focused on LE placement, gross overall movement, transfers and mobility. Pt used solostep x3 rounds for functional mobility, cues required for larger steps. red theraband placed on walker to give pt visual cue to take larger steps due to pt getting stuck into a shuffling pattern. Pt then stood at tall table, completing UE reaching task in various planes. Pt able to reach across midline, touching cones around table. Pt able to follow instructions to touch cones by color, and with R/L hand as instructed with 95% accuracy. Post tx, pt with PT for continued tx, all needs met. Education OT Patient Education: Correct positioning, Energy conservation, Modified ADL techniques, Progress toward Goal/Update tx plan, Purpose of tx/functional activities, Rehab process Teaching Recipient: Patient Teaching Methods: Discussion Response to Teaching: Reinforcement Needed OT Short Term Goals Short Term Goals Time Frame: Dec 20, 2022 Shower/bathe self: 3 Lower body dressin Putting on/taking off footwear: 3 OT Chcf Goals Management Advisor Goals Time Frame: Jan 03, 2023 Acute change in mental status: 1 Inattention: 1 Disorganized thinkin Altered level of consciousness: 0 Eating (QC): 6 Oral Hygiene (QC): 6 Toileting Hygiene (QC): 6 Shower/Bathe Self (QC): 6 Upper Body Dressing (QC): 6 Lower Body Dressing (QC): 6 On/Off Footwear (QC): 6 Additional Goals: 1-Demonstrate ADL Tasks, 2-Verbalize Understanding, 3- ImproveStrength/Kiarra 1=Demonstrate adherence to instructed precautions during ADL tasks. 2=Patient will verbalize/demonstrate understanding of assistive devices/modifications for ADL. 3=Patient will improve strength/tolerance for activity to enable patient to perform ADL's. OT Education/Plan Problem List/Assessment Assessment: Decreased Activ Tolerance, Decreased Safety Aware, Decreased UE Strength, Impaired Cognition, Impaired Funct Balance, Impaired I ADL's, Impaired Self-Care Skills Discharge Recommendations Plan/Recommendations: Continue POC Treatment Plan/Plan of Care Patient would benefit from OT for education, treatment and training to promote independence in ADL's, mobility, safety and/or upper extremity function for ADL's. Plan of Care: ADL Retraining, Functional Mobility, Group Exercise/Act as Ind, UE Funct Exercise/Act Treatment Duration: Jan 03, 2023 Frequency: At least 5 of 7 days/Wk (IRF) Estimated Hrs Per Day: 1.5 hours per day Rehab Potential: Guarded Time Start Time: 08:45 Stop Time: 09:45 DATE: December 04, 2022 Total Time Billed (hr/min): 60 Billed Treatment Time OT tx x15', Cotreat x45' 1, ADL (15'), FA 3 (45') BRODIE READ OT December 04, 2022 09:50
--- NOTE | 2022-12-04 11:18 | Occupational Ther Daily Note ---
OT Current Status-Daily Note Subjective Pt in w/c with live sitter present. Pt agreeable to OT Tx with focus on shaving Mental Status/Objective Patient Orientation: Person, Confused ADL-Treatment Therapy Code Descriptions/Definitions Functional [place] Measure: 0=Not Assessed/NA 4=Minimal Assistance 1=Total Assistance 5=Supervision or Setup 2=Maximal Assistance 6=Modified [place] 3=Moderate Assistance 7=Complete IndependenceSCALE: Activities may be completed with or without assistive devices. 4-Thduyrhnju-hvtvote completes the activity by him/herself with no assistance from a helper. 5-Set-up or Clean-up Assistance-helper sets up or cleans up; patient completes activity. [place] assists only prior to or following the activity. 4-Supervision or Touching Assistance-helper provides verbal cues and/or touching/steadying and/or contact guard assistance as patient completes activity. Assistance may be provided throughout the activity or intermittently. 3-Partial/Moderate Assistance-helper does LESS THAN HALF the effort. [place] lifts, holds or supports trunk or limbs, but provides less than half the effort. 2-Substantial/Maximal Assistance-helper does MORE THAN HALF the effort. [place] lifts or holds trunk or limbs and provides more than half the effort. 6-Erqfwpnzn-hhqkfg does ALL the effort. Patient does none of the effort to complete the activity. Or, the assistance of 2 or more helpers is required for the patient to complete the activity. If activity was not attempted, code reason: 7-Patient Refused. 9-Not Applicable-not attempted and the patient did not perform the activity before the current illness, exacerbation or injury. 10-Not Attempted due to Environmental Limitations-(lack of equipment, weather restraints, etc.). 88-Not Attempted due to Medical Conditions or Safety Concerns. Toileting Hygiene (QC): 2 (max A with urinal) Other Treatment Pt seated in w/c, completed shaving at sink. Pt required SBA throughout task for safety, min A with shaving due to pt not getting all spots. During shaving, pt requests to use bathroom, Max A using urinal. After using urinal, pt finished shaving at sink. Pt used FWW to transfer from /c to recliner, CGA to stand, hand over hand assistance for UE placement prior to transfer. Pt required max VCs to transfer to recliner, as pt was adamant that he was leaving the room. OT informed pt he needed to sit in recliner to finish shaving. Once pt was in recliner, OT assisted pt with finishing shaving under his chin and neck. Pt attempted to stand from recliner to leave the room without warning, requiring cues to sit down and redirection to staying in his room until lunch time. Post tx, pt in recliner, call light in reach and all needs met, live sitter present. Education OT Patient Education: Correct positioning, Energy conservation, Modified ADL techniques, Progress toward Goal/Update tx plan, Purpose of tx/functional activities, Rehab process Teaching Recipient: Patient Teaching Methods: Discussion Response to Teaching: Reinforcement Needed OT Short Term Goals Short Term Goals Time Frame: Dec 20, 2022 Shower/bathe self: 3 Lower body dressin Putting on/taking off footwear: 3 OT Jowl Trimmer Goals [facility] Goals Time Frame: Jan 03, 2023 Acute change in mental status: 1 Inattention: 1 Disorganized thinkin Altered level of consciousness: 0 Eating (QC): 6 Oral Hygiene (QC): 6 Toileting Hygiene (QC): 6 Shower/Bathe Self (QC): 6 Upper Body Dressing (QC): 6 Lower Body Dressing (QC): 6 On/Off Footwear (QC): 6 Additional Goals: 1-Demonstrate ADL Tasks, 2-Verbalize Understanding, 3-ImproveStrength/Kiarra 1=Demonstrate adherence to instructed precautions during ADL tasks. 2=Patient will verbalize/demonstrate understanding of assistive devices/modifications for ADL. 3=Patient will improve strength/tolerance for activity to enable patient to perform ADL's. OT Education/Plan Problem List/Assessment Assessment: Decreased Activ Tolerance, Decreased Safety Aware, Decreased UE Strength, Impaired Cognition, Impaired Coordination, Impaired Funct Balance, Impaired I ADL's, Impaired Self-Care Skills Discharge Recommendations Plan/Recommendations: Continue POC Treatment Plan/Plan of Care Patient would benefit from OT for education, treatment and training to promote independence in ADL's, mobility, safety and/or upper extremity function for ADL's. Plan of Care: ADL Retraining, Functional Mobility, Group Exercise/Act as Ind, UE Funct Exercise/Act Treatment Duration: Jan 03, 2023 Frequency: At least 5 of 7 days/Wk (IRF) Estimated Hrs Per Day: 1.5 hours per day Rehab Potential: Guarded Time Start Time: 10:25 Stop Time: 11:05 DATE: December 04, 2022 Total Time Billed (hr/min): 40 Billed Treatment Time 1, ADL 3 BRODIE READ OT December 04, 2022 11:18
[2022-12-04] MEDS: ENOXAPARIN 40 MG/0.4 ML (LOVENOX) SYR SC SCH (11:34)
[2022-12-04 12:30] VITALS: BP 125/69
--- NOTE | 2022-12-04 13:42 | Physical Therapy Daily Note ---
PT Daily Note-Current Subjective Pt in therapy commons area and willing for therapy. pt did get tearful at times during therapy and apologized for being emotional. therapeutic listening was beneficial to lighten the mood. pt reports pain in right big toe. nursing is aware and RX for gout is being administered. Pain Section J - Health Conditions 1. Rarely or not at all 2. Occasionally 3. Frequently 4. Almost constantly 8. Unable to answer Pain Effect on Sleep: 2 Pain Interference with Therapy: 2 Pain Interference w/Day-to-Day: 2 Mental Status Patient Orientation: Person Transfers SCALE: Activities may be completed with or without assistive devices. 4-Gesbdahlfm-xhuyejc completes the activity by him/herself with no assistance from a helper. 5-Set-up or Clean-up Assistance-helper sets up or cleans up; patient completes activity. [place] assists only prior to or following the activity. 4-Supervision or Touching Assistance-helper provides verbal cues and/or touching/steadying and/or contact guard assistance as patient completes activity. Assistance may be provided throughout the activity or intermittently. 3-Partial/Moderate Assistance-helper does LESS THAN HALF the effort. [place] lifts, holds or supports trunk or limbs, but provides less than half the effort. 2-Substantial/Maximal Assistance-helper does MORE THAN HALF the effort. [place] lifts or holds trunk or limbs and provides more than half the effort. 3-Sagwyvvnl-timget does ALL the effort. Patient does none of the effort to complete the activity. Or, the assistance of 2 or more helpers is required for the patient to complete the activity. If activity was not attempted, code reason: 7-Patient Refused. 9-Not Applicable-not attempted and the patient did not perform the activity before the current illness, exacerbation or injury. 10-Not Attempted due to Environmental Limitations-(lack of equipment, weather restraints, etc.). 88-Not Attempted due to Medical Conditions or Safety Concerns. Weight Bearing Right Lower Extremity: Right Full Weight Bearing Left Lower Extremity: Left Full Weight Bearing Treatments pt was harnessed in the Solo-Step walker. OT/PT cotreat due to skill of 2 clinicians required which a optical lab technician could not perform in order to coordinate UE/LEs, decrease fall risk, focus on higher level balance tasks, and due to pt's limitations in strength, activity tolerance, mobility/transfers, and standing balance. OT focused on UE placement and cues for sequencing and safety, PT focused on LE placement, gross overall movement, transfers and mobility. Pt used solostep x3 rounds for functional mobility, cues required for larger steps. red theraband placed on walker to give pt visual cue to take larger steps due to pt getting stuck into a shuffling pattern. Pt then stood at tall table, completing UE reaching task in various planes. Pt able to reach across midline, touching cones around table. Pt able to follow instructions to touch cones by color, and with R/L hand as instructed with 95% accuracy. Time from 09:00 to 09:45 pt was with Pt for ther-ex in sitting with MOD VC and Max TC for correct mm movement. after 5-6 reps pt was able to recall and preform half of the motion just preformed. Pt preformed 2 sets of 15 in all planes of motion available with BLE Assessment Current Status: Fair Progress PT Security Field Supervisor Goals Security Field Supervisor Goals PT Security Field Supervisor Goals Time Frame: Jan 17, 2023 Roll Left & Right (QC): 6 Sit to Lying (QC): 6 Lying-Sitting on Side/Bed(QC): 6 Sit to Stand (QC): 6 Chair/Bbw-zl-Odwil Xfer(QC): 6 Toilet Transfer (QC): 6 Car Transfer (QC): 6 Does the Patient Walk: Yes Walk 10 feet (QC): 6 Walk 50ft with 2 Turns (QC): 6 Walk 150 ft (QC): 6 Walking 10ft on Uneven Surface: 6 1 Step (curb) (QC): 6 4 Steps (QC): 4 12 Steps (QC): 4 Picking up an Object (QC): 6 Does the Pt use WC or Scooter?: No Wheel 50 feet with 2 turns (QC: 9 Wheel 150 feet: 9 PT Plan Problem List Problem List: Safety, Gait Treatment/Plan Treatment Plan: Continue Plan of Care Treatment Plan: Bed Mobility, Education, Functional Activity Kiarra, Functional Strength, Group Therapy, Gait, Safety Treatment Duration: Jan 17, 2023 Frequency: At least 5 of 7 days/Wk (IRF) Estimated Hrs Per Day: 1.5 hours per day Patient and/or Family Agrees t: Yes Time Time In: 0900 Time Out: 1000 DATE: December 04, 2022 Total Billed Treatment Time: 60 Total Billed Treatment 1 GT x 3 EX x 1 PT/OT cotreated form 09:00-09:45 for 45 mins and from 09:45-10:00 individual treatment for 15 mins. Carissa Todd STAMP CLERK December 04, 2022 13:42
--- NOTE | 2022-12-04 14:26 | Physical Therapy Daily Note ---
PT Daily Note-Current Subjective Pt in recliner upon arrival and good for therapy. pt requires MOD vc to stay on task and finish said task this day. Pain Section J - Health Conditions 1. Rarely or not at all 2. Occasionally 3. Frequently 4. Almost constantly 8. Unable to answer Pain Effect on Sleep: 2 Pain Interference with Therapy: 2 Pain Interference w/Day-to-Day: 2 Mental Status Patient Orientation: Person, Place Transfers SCALE: Activities may be completed with or without assistive devices. 8-Hwyntzarml-vuywwmm completes the activity by him/herself with no assistance f rom a helper. 5-Set-up or Clean-up Assistance-helper sets up or cleans up; patient completes activity. [place] assists only prior to or following the activity. 4-Supervision or Touching Assistance-helper provides verbal cues and/or touching/steadying and/or contact guard assistance as patient completes activity. Assistance may be provided throughout the activity or intermittently. 3-Partial/Moderate Assistance-helper does LESS THAN HALF the effort. [place] lifts, holds or supports trunk or limbs, but provides less than half the effort. 2-Substantial/Maximal Assistance-helper does MORE THAN HALF the effort. [place] lifts or holds trunk or limbs and provides more than half the effort. 9-Ulfnfhdri-drassa does ALL the effort. Patient does none of the effort to complete the activity. Or, the assistance of 2 or more helpers is required for the patient to complete the activity. If activity was not attempted, code reason: 7-Patient Refused. 9-Not Applicable-not attempted and the patient did not perform the activity before the current illness, exacerbation or injury. 10-Not Attempted due to Environmental Limitations-(lack of equipment, weather restraints, etc.). 88-Not Attempted due to Medical Conditions or Safety Concerns. Weight Bearing Right Lower Extremity: Right Full Weight Bearing Left Lower Extremity: Left Full Weight Bearing Treatments Pt preformed sitting Ther-ex with max VC and MOD + TC for correct moment with BLE in all planes available. pt preforms 2 sets x 25 reps. by the 4-5 rep pt can preform exercise shown with TC independently then after 2-3 independent reps pt refers to needing TC again for correct movement. PT Correction Goals Marine Propulsion Technician Goals PT Correction Goals Time Frame: Jan 17, 2023 Roll Left & Right (QC): 6 Sit to Lying (QC): 6 Lying-Sitting on Side/Bed(QC): 6 Sit to Stand (QC): 6 Chair/Miq-aj-Ywepv Xfer(QC): 6 Toilet Transfer (QC): 6 Car Transfer (QC): 6 Does the Patient Walk: Yes Walk 10 feet (QC): 6 Walk 50ft with 2 Turns (QC): 6 Walk 150 ft (QC): 6 Walking 10ft on Uneven Surface: 6 1 Step (curb) (QC): 6 4 Steps (QC): 4 12 Steps (QC): 4 Picking up an Object (QC): 6 Does the Pt use WC or Scooter?: No Wheel 50 feet with 2 turns (QC: 9 Wheel 150 feet: 9 PT Plan Treatment/Plan Treatment Plan: Continue Plan of Care Treatment Plan: Bed Mobility, Education, Functional Activity Kiarra, Functional Strength, Group Therapy, Gait, Safety Treatment Duration: Jan 17, 2023 Frequency: At least 5 of 7 days/Wk (IRF) Estimated Hrs Per Day: 1.5 hours per day Patient and/or Family Agrees t: Yes Time Time In: 1300 Time Out: 1330 DATE: December 04, 2022 Total Billed Treatment Time: 30 Total Billed Treatment 1 EX x 2 Carissa Todd BUTT TRIMMER December 04, 2022 14:25
[2022-12-04] MEDS: TAMSULOSIN 0.4 MG (FLOMAX) CAP PO SCH (18:20)
[2022-12-04 19:51] VITALS: BP 136/71
[2022-12-04] MEDS: AtorvaSTATin TABLET 10 MG TABLET PO SCH (20:16)
[2022-12-04] MEDS: MELATONIN 3 MG TABLET PO PRN (20:17)
--- NOTE | 2022-12-05 05:23 | PM&R Progress Note ---
Subjective HPI/CC On Admission Date Seen by Provider: December 05, 2022 Time Seen by Provider: 12:00 Subjective/Events-last exam 12/05/2022: Working really hard in therapy Improved overall No falls No gout pain reported BM+ 12/04/2022: No major changes Improved overall Confusion at times Fall risk 12/03/2022: Confusion noted Gout doing a bit better At high risk for NHP No pain otherwise BM+ 12/02/2022: Doing well Left great toe possible gout? PT OT initiated aggressive therapy 12/01/2022: Doing pretty well One on one sitter at bedside Confusion varies Paranoia at times Weakness At risk for NH Review of Systems General: Fatigue, Malaise Objective Exam Vital Signs Vital Signs Date Time Temp Pulse Resp B/P (MAP) Pulse Ox O2 Delivery O2 Flow Rate FiO2 12/05/22 09:11 Room Air 12/05/22 08:44 36.6 98 18 136/53 (80) 98 Capillary Refill : General Appearance: No Apparent Distress, WD/WN, Chronically ill HEENT: PERRL/EOMI, Normal ENT Inspection, Pharynx Normal Neck: Full Range of Motion, Normal Inspection, Non Tender, Supple, Carotid Bruit Respiratory: Chest Non Tender, Lungs Clear, Normal Breath Sounds, No Accessory Muscle Use, No Respiratory Distress Cardiovascular: Regular Rate, Rhythm, No Edema, No Gallop, No JVD, No Murmur, Normal Peripheral Pulses Gastrointestinal: Normal Bowel Sounds, No Organomegaly, No Pulsatile Mass, Non Tender, Soft Back: Normal Inspection, No CVA Tenderness, No Vertebral Tenderness Extremity: Normal Capillary Refill, Normal Inspection, Normal Range of Motion, Non Tender, No Calf Tenderness, No Pedal Edema Neurologic/Psychiatric: Alert, Oriented x3, Abnormal Gait, Depressed Affect, Motor Weakness (generalized weakness), Other (tremor noted) Skin: Normal Color, Warm/Dry Lymphatic: No Adenopathy Results/Procedures Lab Patient resulted labs reviewed. FIM Transfers Therapy Code Descriptions/Definitions Functional [place] Measure: 0=Not Assessed/NA 4=Minimal Assistance 1=Total Assistance 5=Supervision or Setup 2=Maximal Assistance 6=Modified [place] 3=Moderate Assistance 7=Complete IndependenceSCALE: Activities may be completed with or without assistive devices. 7-Plxkrdkaxn-ftgrhzw completes the activity by him/herself with no assistance from a helper. 5-Set-up or Clean-up Assistance-helper sets up or cleans up; patient completes activity. [place] assists only prior to or following the activity. 4-Supervision or Touching Assistance-helper provides verbal cues and/or touching/steadying and/or contact guard assistance as patient completes activity. Assistance may be provided throughout the activity or intermittently. 3-Partial/Moderate Assistance-helper does LESS THAN HALF the effort. [place] lifts, holds or supports trunk or limbs, but provides less than half the effort. 2-Substantial/Maximal Assistance-helper does MORE THAN HALF the effort. [place] lifts or holds trunk or limbs and provides more than half the effort. 8-Hkrjrwdcs-yeoknd does ALL the effort. Patient does none of the effort to complete the activity. Or, the assistance of 2 or more helpers is required for the patient to complete the activity. If activity was not attempted, code reason: 7-Patient Refused. 9-Not Applicable-not attempted and the patient did not perform the activity befo re the current illness, exacerbation or injury. 10-Not Attempted due to Environmental Limitations-(lack of equipment, weather re straints, etc.). 88-Not Attempted due to Medical Conditions or Safety Concerns. Roll Left to Right (QC): 3 Sit to Lying (QC): 3 Sit to Stand (QC): 4 Chair/Qgn-sf-Cluyc Xfer(QC): 4 Car Transfer (QC): 3 Gait Training Does the Patient Walk?: Yes Walk 10 feet (QC): 4 Walk 50 ft with 2 Turns(QC): 4 Walk 150 ft (QC): 4 Walking 10ft/uneven surface-QC: 4 Gait Persons Needed: 1 Gait Assistive Device: FWW Wheelchair Training Does the Pt Use a Wheelchair?: Yes Wheel 50 ft with 2 turns (QC): 3 Wheel 150 ft (QC): 3 Type of Wheelchair: Manual Stair Training #of Steps: 12 1 Step (curb) (QC): 4 4 Steps (QC): 4 12 Steps (QC): 4 Balance Picking up an Object (QC): 4 ADL-Treatment Eating (QC): 3 (Per staff development educator report.) Oral Hygiene (QC): 3 Shower/Bathe Self (QC): 2 (Max A overall for thoroughness, max VCs.) Upper Body Dressing (QC): 2 (Max A overall and max VCs) Lower Body Dressing (QC): 2 On/Off Footwear (QC): 2 Toileting Hygiene (QC): 2 (max A with urinal) Assessment/Plan Assessment and Plan Assess & Plan/Chief Complaint Assessment: Parkinson's disease HLP HTN BPH Paranoia Gout? Left great toe Plan: PT OT Fall risk Monitor closely 12/01/2022: Monitor closely Pain control 12/02/2022: Colchicine vs prednisone (could increase paranoia) 12/03/2022: Monitor closely NHP? 12/04/2022: Monitor closely Fall risk 12/05/2022: Increase therapy intensity (1) Parkinsons disease Status: Chronic (2) BPH (benign prostatic hyperplasia) Status: Chronic (3) HLD (hyperlipidemia) Status: Chronic (4) HTN (hypertension) Status: Chronic BRANDON BURTON DO December 05, 2022 05:23
[2022-12-05 08:00] VITALS: BP_SYST 136; BP_DIAS 53; BP_DIAS 71
[2022-12-05] MEDS: MIRABEGRON 25 MG TAB (MYRBETRIQ) PO SCH (08:13)
[2022-12-05] MEDS: polyethylene glycoL POWDER 17 GM (MIRALAX) PACK PO SCH ×3 (08:13→19:26)
[2022-12-05] MEDS: SENNA W/DOCUSATE (SENOKOT S) TABLET PO SCH ×2 (08:13→19:58)
[2022-12-05] MEDS: PROPRANOLOL 20 MG (INDERAL) TABLET PO SCH ×2 (08:13→19:58)
[2022-12-05] MEDS: SINEMET 25/100 (CARBIDOPA/LEVODOPA) TAB PO SCH ×3 (08:13→19:58)
[2022-12-05] MEDS: lisINopril 10 MG (PRINIVIL) TABLET PO SCH (08:13)
[2022-12-05] MEDS: DOCUSATE SODIUM 100 MG (COLACE) CAP PO SCH ×2 (08:28→19:25)
[2022-12-05 08:44] VITALS: BP 136/53
--- NOTE | 2022-12-05 10:54 | Occupational Ther Daily Note ---
OT Current Status-Daily Note Subjective Pt in w/c with live sitter, agreeable to OT tx. Pt very emotional throughout tx, especially when talking about past stories with his sister. OT provided therapeutic listening and communication. Mental Status/Objective Patient Orientation: Person, Confused ADL-Treatment Therapy Code Descriptions/Definitions Functional [place] Measure: 0=Not Assessed/NA 4=Minimal Assistance 1=Total Assistance 5=Supervision or Setup 2=Maximal Assistance 6=Modified [place] 3=Moderate Assistance 7=Complete IndependenceSCALE: Activities may be completed with or without assistive devices. 2-Wqwsboqgzt-hxvlqpv completes the activity by him/herself with no assistance from a helper. 5-Set-up or Clean-up Assistance-helper sets up or cleans up; patient completes activity. [place] assists only prior to or following the activity. 4-Supervision or Touching Assistance-helper provides verbal cues and/or touching/steadying and/or contact guard assistance as patient completes activity. Assistance may be provided throughout the activity or intermittently. 3-Partial/Moderate Assistance-helper does LESS THAN HALF the effort. [place] lifts, holds or supports trunk or limbs, but provides less than half the effort. 2-Substantial/Maximal Assistance-helper does MORE THAN HALF the effort. [place] lifts or holds trunk or limbs and provides more than half the effort. 9-Xmkqbhtld-hyahmc does ALL the effort. Patient does none of the effort to complete the activity. Or, the assistance of 2 or more helpers is required for the patient to complete the activity. If activity was not attempted, code reason: 7-Patient Refused. 9-Not Applicable-not attempted and the patient did not perform the activity before the current illness, exacerbation or injury. 10-Not Attempted due to Environmental Limitations-(lack of equipment, weather restraints, etc.). 88-Not Attempted due to Medical Conditions or Safety Concerns. Shower/Bathe Self (QC): 3 (Min A washing buttocks and drying LEs.) Upper Body Dressing (QC): 3 (Max A donning button up shirt.) Lower Body Dressing (QC): 2 (Max A donning brief/pants. Assist with threading BLEs, slight assist with pant hike.) On/Off Footwear: 3 (Mod A. Pt able to doff, assist with donning.) Mod VCs for sequencing throughout task. Other Treatment Pt in w/c, SPT to SC using GBs, CGA. Pt doffed clothes, completed shower, then donned clothes. Pt sat at sink for shaving, SBA for safety and min VCs. Pt taken to ARU common area via w/c. Pt very emotional throughout tx, especially when talking about past stories with his sister. OT provided therapeutic listening and communication. Post tx, pt seated in w/c in ARU common area, live sitter present and all needs met. Education OT Patient Education: Correct positioning, Energy conservation, Modified ADL techniques, Progress toward Goal/Update tx plan, Purpose of tx/functional activities, Rehab process Teaching Recipient: Patient Teaching Methods: Discussion Response to Teaching: Reinforcement Needed OT Short Term Goals Short Term Goals Time Frame: Dec 20, 2022 Shower/bathe self: 3 Lower body dressin Putting on/taking off footwear: 3 OT Senior Care Goals Wood Heel Finisher Goals Time Frame: Jan 03, 2023 Acute change in mental status: 1 Inattention: 1 Disorganized thinkin Altered level of consciousness: 0 Eating (QC): 6 Oral Hygiene (QC): 6 Toileting Hygiene (QC): 6 Shower/Bathe Self (QC): 6 Upper Body Dressing (QC): 6 Lower Body Dressing (QC): 6 On/Off Footwear (QC): 6 Additional Goals: 1-Demonstrate ADL Tasks, 2-Verbalize Understanding, 3- ImproveStrength/Kiarra 1=Demonstrate adherence to instructed precautions during ADL tasks. 2=Patient will verbalize/demonstrate understanding of assistive devices/modifications for ADL. 3=Patient will improve strength/tolerance for activity to enable patient to perform ADL's. OT Education/Plan Problem List/Assessment Assessment: Decreased Activ Tolerance, Decreased Safety Aware, Decreased UE Strength, Impaired Cognition, Impaired Funct Balance, Impaired I ADL's, Impaired Self-Care Skills Discharge Recommendations Plan/Recommendations: Continue POC Treatment Plan/Plan of Care Patient would benefit from OT for education, treatment and training to promote independence in ADL's, mobility, safety and/or upper extremity function for ADL's. Plan of Care: ADL Retraining, Functional Mobility, Group Exercise/Act as Ind, UE Funct Exercise/Act Treatment Duration: Jan 03, 2023 Frequency: At least 5 of 7 days/Wk (IRF) Estimated Hrs Per Day: 1.5 hours per day Rehab Potential: Guarded Time Start Time: 09:00 Stop Time: 10:30 DATE: December 05, 2022 Total Time Billed (hr/min): 90 Billed Treatment Time 1, ADL 6 BRODIE READ OT December 05, 2022 10:54
[2022-12-05] MEDS: ENOXAPARIN 40 MG/0.4 ML (LOVENOX) SYR SC SCH (12:32)
--- NOTE | 2022-12-05 13:47 | Physical Therapy Daily Note ---
PT Daily Note-Current Subjective pt in therapy commons area and willing for therapy upon arrival. pt reports no pain. Pain Section J - Health Conditions 1. Rarely or not at all 2. Occasionally 3. Frequently 4. Almost constantly 8. Unable to answer Pain Effect on Sleep: 2 Pain Interference with Therapy: 2 Pain Interference w/Day-to-Day: 2 Mental Status Patient Orientation: Person Transfers SCALE: Activities may be completed with or without assistive devices. 1-Hxitajkkzw-dxmmves completes the activity by him/herself with no assistance from a helper. 5-Set-up or Clean-up Assistance-helper sets up or cleans up; patient completes activity. [place] assists only prior to or following the activity. 4-Supervision or Touching Assistance-helper provides verbal cues and/or touching/steadying and/or contact guard assistance as patient completes activity. Assistance may be provided throughout the activity or intermittently. 3-Partial/Moderate Assistance-helper does LESS THAN HALF the effort. [place] lifts, holds or supports trunk or limbs, but provides less than half the effort. 2-Substantial/Maximal Assistance-helper does MORE THAN HALF the effort. [place] lifts or holds trunk or limbs and provides more than half the effort. 0-Abstsisqs-mvocsv does ALL the effort. Patient does none of the effort to complete the activity. Or, the assistance of 2 or more helpers is required for the patient to complete the activity. If activity was not attempted, code reason: 7-Patient Refused. 9-Not Applicable-not attempted and the patient did not perform the activity before the current illness, exacerbation or injury. 10-Not Attempted due to Environmental Limitations-(lack of equipment, weather restraints, etc.). 88-Not Attempted due to Medical Conditions or Safety Concerns. Weight Bearing Right Lower Extremity: Right Full Weight Bearing Left Lower Extremity: Left Full Weight Bearing Exercises NuStep Minutes: 5 NuStep Workload: 1 Treatments pt was harnessed into the Solo-step and ambulated with RW and CGA with MAx VC for directional changes and bigger steps to reduce shuffling gait pattern. Hand on walker and pt for directional changes required.pt is able to ambulate 40ft circuit x 4 with rest in between in sitting ofr aprox 3-4 mins and is able to resume ambulation in solo-step again. Assessment Current Status: Good Progress PT Long-Term Goals Long-Term Goals PT Research Methods Instructor Goals Time Frame: Jan 17, 2023 Roll Left & Right (QC): 6 Sit to Lying (QC): 6 Lying-Sitting on Side/Bed(QC): 6 Sit to Stand (QC): 6 Chair/Jqu-nk-Auejf Xfer(QC): 6 Toilet Transfer (QC): 6 Car Transfer (QC): 6 Does the Patient Walk: Yes Walk 10 feet (QC): 6 Walk 50ft with 2 Turns (QC): 6 Walk 150 ft (QC): 6 Walking 10ft on Uneven Surface: 6 1 Step (curb) (QC): 6 4 Steps (QC): 4 12 Steps (QC): 4 Picking up an Object (QC): 6 Does the Pt use WC or Scooter?: No Wheel 50 feet with 2 turns (QC: 9 Wheel 150 feet: 9 PT Plan Treatment/Plan Treatment Plan: Continue Plan of Care Treatment Plan: Bed Mobility, Education, Functional Activity Kiarra, Functional Strength, Group Therapy, Gait, Safety Treatment Duration: Jan 17, 2023 Frequency: At least 5 of 7 days/Wk (IRF) Estimated Hrs Per Day: 1.5 hours per day Patient and/or Family Agrees t: Yes Time Time In: 1100 Time Out: 1200 DATE: December 05, 2022 Total Billed Treatment Time: 60 Total Billed Treatment 1 GT x 3 EX Carissa Todd PERSONAL PROTECTION SPECIALIST December 05, 2022 13:47
--- NOTE | 2022-12-05 13:54 | Physical Therapy Daily Note ---
PT Daily Note-Current Subjective Pt in room after lunch and has just finished eating Pain Section J - Health Conditions 1. Rarely or not at all 2. Occasionally 3. Frequently 4. Almost constantly 8. Unable to answer Pain Effect on Sleep: 2 Pain Interference with Therapy: 2 Pain Interference w/Day-to-Day: 2 Transfers SCALE: Activities may be completed with or without assistive devices. 6-Ghnifaemnd-squwepq completes the activity by him/herself with no assistance from a helper. 5-Set-up or Clean-up Assistance-helper sets up or cleans up; patient completes activity. [place] assists only prior to or following the activity. 4-Supervision or Touching Assistance-helper provides verbal cues and/or touching/steadying and/or contact guard assistance as patient completes activity. Assistance may be provided throughout the activity or intermittently. 3-Partial/Moderate Assistance-helper does LESS THAN HALF the effort. [place] lifts, holds or supports trunk or limbs, but provides less than half the effort. 2-Substantial/Maximal Assistance-helper does MORE THAN HALF the effort. [place] lifts or holds trunk or limbs and provides more than half the effort. 8-Xcoycclai-nractt does ALL the effort. Patient does none of the effort to complete the activity. Or, the assistance of 2 or more helpers is required for the patient to complete the activity. If activity was not attempted, code reason: 7-Patient Refused. 9-Not Applicable-not attempted and the patient did not perform the activity befo re the current illness, exacerbation or injury. 10-Not Attempted due to Environmental Limitations-(lack of equipment, weather re straints, etc.). 88-Not Attempted due to Medical Conditions or Safety Concerns. Weight Bearing Right Lower Extremity: Right Full Weight Bearing Left Lower Extremity: Left Full Weight Bearing Exercises Seated Therapy Exercises: Ankle pumps, Sit to stand, Hip flexion, Kicking activity, Hamstring Curls, Glut set Seated Reps: 15 Treatments pt required Mod VC/TC for correct seated ther-ex. pt was able to preform 2 sets of 15 with rest in between for fatigue. Assessment Current Status: Fair Progress PT [facility]entiary Goals Hot Air Furnace Installer And Repairer Goals PT [facility]it[facility]iary Goals Time Frame: Jan 17, 2023 Roll Left & Right (QC): 6 Sit to Lying (QC): 6 Lying-Sitting on Side/Bed(QC): 6 Sit to Stand (QC): 6 Chair/Dfy-pp-Zrehd Xfer(QC): 6 Toilet Transfer (QC): 6 Car Transfer (QC): 6 Does the Patient Walk: Yes Walk 10 feet (QC): 6 Walk 50ft with 2 Turns (QC): 6 Walk 150 ft (QC): 6 Walking 10ft on Uneven Surface: 6 1 Step (curb) (QC): 6 4 Steps (QC): 4 12 Steps (QC): 4 Picking up an Object (QC): 6 Does the Pt use WC or Scooter?: No Wheel 50 feet with 2 turns (QC: 9 Wheel 150 feet: 9 PT Plan Treatment/Plan Treatment Plan: Continue Plan of Care Treatment Plan: Bed Mobility, Education, Functional Activity Kiarra, Functional Strength, Group Therapy, Gait, Safety Treatment Duration: Jan 17, 2023 Frequency: At least 5 of 7 days/Wk (IRF) Estimated Hrs Per Day: 1.5 hours per day Patient and/or Family Agrees t: Yes Time Time In: 1255 Time Out: 1325 DATE: December 05, 2022 Total Billed Treatment Time: 30 Total Billed Treatment 1 EX x2 Carissa Todd RAMP AGENT December 05, 2022 13:54
[2022-12-05] MEDS: TAMSULOSIN 0.4 MG (FLOMAX) CAP PO SCH (17:23)
[2022-12-05 19:05] VITALS: BP 125/62
[2022-12-05] MEDS: AtorvaSTATin TABLET 10 MG TABLET PO SCH (19:57)
[2022-12-05] MEDS: MELATONIN 3 MG TABLET PO PRN (19:58)
[2022-12-05] MEDS: ACETAMINOPHEN 325 MG TABLET PO PRN (19:59)
--- NOTE | 2022-12-06 04:58 | PM&R Progress Note ---
Subjective HPI/CC On Admission Date Seen by Provider: December 06, 2022 Time Seen by Provider: 12:00 Subjective/Events-last exam 12/06/2022: No major issues Moving around well No falls No pain 12/05/2022: Working really hard in therapy Improved overall No falls No gout pain reported BM+ 12/04/2022: No major changes Improved overall Confusion at times Fall risk 12/03/2022: Confusion noted Gout doing a bit better At high risk for NHP No pain otherwise BM+ 12/02/2022: Doing well Left great toe possible gout? PT OT initiated aggressive therapy 12/01/2022: Doing pretty well One on one sitter at bedside Confusion varies Paranoia at times Weakness At risk for NH Review of Systems General: Fatigue, Malaise Objective Exam Vital Signs Vital Signs Date Time Temp Pulse Resp B/P (MAP) Pulse Ox O2 Delivery O2 Flow Rate FiO2 12/06/22 20:51 Room Air 12/06/22 20:05 36.6 70 16 107/66 (80) 94 Capillary Refill : General Appearance: No Apparent Distress, WD/WN, Chronically ill HEENT: PERRL/EOMI, Normal ENT Inspection, Pharynx Normal Neck: Full Range of Motion, Normal Inspection, Non Tender, Supple, Carotid Bruit Respiratory: Chest Non Tender, Lungs Clear, Normal Breath Sounds, No Accessory Muscle Use, No Respiratory Distress Cardiovascular: Regular Rate, Rhythm, No Edema, No Gallop, No JVD, No Murmur, Normal Peripheral Pulses Gastrointestinal: Normal Bowel Sounds, No Organomegaly, No Pulsatile Mass, Non Tender, Soft Back: Normal Inspection, No CVA Tenderness, No Vertebral Tenderness Extremity: Normal Capillary Refill, Normal Inspection, Normal Range of Motion, Non Tender, No Calf Tenderness, No Pedal Edema Neurologic/Psychiatric: Alert, Oriented x3, Abnormal Gait, Depressed Affect, Motor Weakness (generalized weakness), Other (tremor noted) Skin: Normal Color, Warm/Dry Lymphatic: No Adenopathy Results/Procedures Lab Patient resulted labs reviewed. [facility] Transfers Therapy Code Descriptions/Definitions Functional [place] Measure: 0=Not Assessed/NA 4=Minimal Assistance 1=Total Assistance 5=Supervision or Setup 2=Maximal Assistance 6=Modified [place] 3=Moderate Assistance 7=Complete IndependenceSCALE: Activities may be completed with or without assistive devices. 2-Tzefzgudad-ycjxklz completes the activity by him/herself with no assistance from a helper. 5-Set-up or Clean-up Assistance-helper sets up or cleans up; patient completes activity. [place] assists only prior to or following the activity. 4-Supervision or Touching Assistance-helper provides verbal cues and/or touching/steadying and/or contact guard assistance as patient completes activity. Assistance may be provided throughout the activity or intermittently. 3-Partial/Moderate Assistance-helper does LESS THAN HALF the effort. [place] lifts, holds or supports trunk or limbs, but provides less than half the effort. 2-Substantial/Maximal Assistance-helper does MORE THAN HALF the effort. [place] lifts or holds trunk or limbs and provides more than half the effort. 5-Etsyfeibr-huihpc does ALL the effort. Patient does none of the effort to complete the activity. Or, the assistance of 2 or more helpers is required for the patient to complete the activity. If activity was not attempted, code reason: 7-Patient Refused. 9-Not Applicable-not attempted and the patient did not perform the activity before the current illness, exacerbation or injury. 10-Not Attempted due to Environmental Limitations-(lack of equipment, weather restraints, etc.). 88-Not Attempted due to Medical Conditions or Safety Concerns. Roll Left to Right (QC): 3 Sit to Lying (QC): 3 Sit to Stand (QC): 4 Chair/Pue-be-Iadrd Xfer(QC): 4 Car Transfer (QC): 3 Gait Training Does the Patient Walk?: Yes Walk 10 feet (QC): 4 Walk 50 ft with 2 Turns(QC): 4 Walk 150 ft (QC): 4 Walking 10ft/uneven surface-QC: 4 Gait Persons Needed: 1 Gait Assistive Device: FWW Wheelchair Training Does the Pt Use a Wheelchair?: Yes Wheel 50 ft with 2 turns (QC): 3 Wheel 150 ft (QC): 3 Type of Wheelchair: Manual Stair Training #of Steps: 12 1 Step (curb) (QC): 4 4 Steps (QC): 4 12 Steps (QC): 4 Balance Picking up an Object (QC): 4 ADL-Treatment Eating (QC): 3 (Per nursing staffing coordinator report.) Oral Hygiene (QC): 3 Shower/Bathe Self (QC): 3 (Min A washing buttocks and drying LEs.) Upper Body Dressing (QC): 3 (Max A donning button up shirt.) Lower Body Dressing (QC): 2 (Max A donning brief/pants. Assist with threading BLEs, slight assist with pant hike.) On/Off Footwear (QC): 3 (Mod A. Pt able to doff, assist with donning.) Toileting Hygiene (QC): 2 (max A with urinal) Assessment/Plan Assessment and Plan Assess & Plan/Chief Complaint Assessment: Parkinson's disease HLP HTN BPH Paranoia Gout? Left great toe Plan: PT OT Fall risk Monitor closely 12/01/2022: Monitor closely Pain control 12/02/2022: Colchicine vs prednisone (could increase paranoia) 12/03/2022: Monitor closely NHP? 12/04/2022: Monitor closely Fall risk 12/05/2022: Increase therapy intensity 12/06/2022: Improved overall (1) Parkinsons disease Status: Chronic (2) BPH (benign prostatic hyperplasia) Status: Chronic (3) HLD (hyperlipidemia) Status: Chronic (4) HTN (hypertension) Status: Chronic BRANDON BURTON DO December 06, 2022 04:58
[2022-12-06 08:00] VITALS: BP 111/55
[2022-12-06] MEDS: SINEMET 25/100 (CARBIDOPA/LEVODOPA) TAB PO SCH ×3 (08:11→19:59)
[2022-12-06] MEDS: MIRABEGRON 25 MG TAB (MYRBETRIQ) PO SCH (08:11)
[2022-12-06] MEDS: polyethylene glycoL POWDER 17 GM (MIRALAX) PACK PO SCH ×2 (08:12→19:25)
[2022-12-06] MEDS: DOCUSATE SODIUM 100 MG (COLACE) CAP PO SCH ×2 (08:12→19:25)
[2022-12-06] MEDS: SENNA W/DOCUSATE (SENOKOT S) TABLET PO SCH ×2 (08:12→19:59)
[2022-12-06] MEDS: PROPRANOLOL 20 MG (INDERAL) TABLET PO SCH ×2 (08:13→19:59)
[2022-12-06] MEDS: lisINopril 10 MG (PRINIVIL) TABLET PO SCH (08:13)
--- NOTE | 2022-12-06 09:14 | Occupational Ther Daily Note ---
OT Current Status-Daily Note Subjective Pt in chair in room, live sitter present. Pt already completed dressing tasks with production staff worker prior to OT arrival, thus no ADLs assessed today. Mental Status/Objective Patient Orientation: Person, Confused ADL-Treatment Therapy Code Descriptions/Definitions Functional [place] Measure: 0=Not Assessed/NA 4=Minimal Assistance 1=Total Assistance 5=Supervision or Setup 2=Maximal Assistance 6=Modified [place] 3=Moderate Assistance 7=Complete IndependenceSCALE: Activities may be completed with or without assistive devices. 1-Dbjracevcz-gfxcdcn completes the activity by him/herself with no assistance from a helper. 5-Set-up or Clean-up Assistance-helper sets up or cleans up; patient completes activity. [place] assists only prior to or following the activity. 4-Supervision or Touching Assistance-helper provides verbal cues and/or touching/steadying and/or contact guard assistance as patient completes activity. Assistance may be provided throughout the activity or intermittently. 3-Partial/Moderate Assistance-helper does LESS THAN HALF the effort. [place] lifts, holds or supports trunk or limbs, but provides less than half the effort. 2-Substantial/Maximal Assistance-helper does MORE THAN HALF the effort. [place] lifts or holds trunk or limbs and provides more than half the effort. 5-Uicigduyk-vnvjms does ALL the effort. Patient does none of the effort to complete the activity. Or, the assistance of 2 or more helpers is required for the patient to complete the activity. If activity was not attempted, code reason: 7-Patient Refused. 9-Not Applicable-not attempted and the patient did not perform the activity before the current illness, exacerbation or injury. 10-Not Attempted due to Environmental Limitations-(lack of equipment, weather restraints, etc.). 88-Not Attempted due to Medical Conditions or Safety Concerns. Other Treatment Pt just finished dressing prior to OT arrival, pt declined further ADLs at this time. Pt agreeable to OT tx with focus on increasing BUE strength and activity tolerance. Pt stood from chair 2 times without warning, no gait belt or walker in place, requiring VCs for safety to sit down. Pt used FWW to perform functi onal mobility to therapy gym, CGA sit to stand, and CGA with mobility using FWW. Pt completed arm bike x15 mins, 15-20 Watt resistance, 1 RB. Pt then completed UE reaching and cognitive task, 1lb wrist weights BUEs. Pt completed pegboard, matching 1 color of peg per row of the board. Pt required min-mod VCs throughout task for correct color placement. Pt's sister arrived for family education. Pt returned to his room with CGA using FWW. Hand over hand assistance and verbal cues required for UE placement prior to sitting in recliner for safety. Pt had difficulty following instructions, keeping BUEs on walker during transfer and raising walker off of floor. Pt had difficulty following verbal/tactile instructions for safety. OT educated pt's sister on assistance level required with ADLs at this time, she verbalized understanding and states no further questions/concerns from OT at this time. Sister did have some questions regarding next steps/insurance, appropriate members of care team notified of questions and plan to address with sister. Post tx, pt in recliner, call light in reach and all needs met, family present and live sitter present. Education OT Patient Education: Correct positioning, Energy conservation, Modified ADL techniques, Progress toward Goal/Update tx plan, Purpose of tx/functional activities, Rehab process Teaching Recipient: Patient Teaching Methods: Discussion Response to Teaching: Reinforcement Needed OT Short Term Goals Short Term Goals Time Frame: Dec 20, 2022 Shower/bathe self: 3 Lower body dressin Putting on/taking off footwear: 3 OT Mcfp Goals Mcfp Goals Time Frame: Jan 03, 2023 Acute change in mental status: 1 Inattention: 1 Disorganized thinkin Altered level of consciousness: 0 Eating (QC): 6 Oral Hygiene (QC): 6 Toileting Hygiene (QC): 6 Shower/Bathe Self (QC): 6 Upper Body Dressing (QC): 6 Lower Body Dressing (QC): 6 On/Off Footwear (QC): 6 Additional Goals: 1-Demonstrate ADL Tasks, 2-Verbalize Understanding, 3- ImproveStrength/Kiarra 1=Demonstrate adherence to instructed precautions during ADL tasks. 2=Patient will verbalize/demonstrate understanding of assistive devices/modifications for ADL. 3=Patient will improve strength/tolerance for activity to enable patient to perform ADL's. OT Education/Plan Problem List/Assessment Assessment: Decreased Activ Tolerance, Decreased Safety Aware, Decreased UE Strength, Impaired Cognition, Impaired Funct Balance, Impaired I ADL's, Impaired Self-Care Skills Discharge Recommendations Plan/Recommendations: Continue POC Treatment Plan/Plan of Care Patient would benefit from OT for education, treatment and training to promote independence in ADL's, mobility, safety and/or upper extremity function for ADL's. Plan of Care: ADL Retraining, Functional Mobility, Group Exercise/Act as Ind, U E Funct Exercise/Act Treatment Duration: Jan 03, 2023 Frequency: At least 5 of 7 days/Wk (IRF) Estimated Hrs Per Day: 1.5 hours per day Rehab Potential: Guarded Time Start Time: 09:00 Stop Time: 10:30 DATE: December 06, 2022 Total Time Billed (hr/min): 90 Billed Treatment Time 1, EX (15'), ADL 2 (30'), FA 3 (45') BRODIE READ OT December 06, 2022 09:14
[2022-12-06 09:16] VITALS: BP 111/55
[2022-12-06] MEDS: ENOXAPARIN 40 MG/0.4 ML (LOVENOX) SYR SC SCH (12:31)
--- NOTE | 2022-12-06 12:50 | Physical Therapy Daily Note ---
PT Daily Note-Current Subjective Pt in room with sister upon arrival. pt willing for therapy. Pain Section J - Health Conditions 1. Rarely or not at all 2. Occasionally 3. Frequently 4. Almost constantly 8. Unable to answer Pain Effect on Sleep: 2 Pain Interference with Therapy: 2 Pain Interference w/Day-to-Day: 2 Mental Status Patient Orientation: Person Transfers SCALE: Activities may be completed with or without assistive devices. 0-Jueppexpjp-gdwuint completes the activity by him/herself with no assistance from a helper. 5-Set-up or Clean-up Assistance-helper sets up or cleans up; patient completes activity. [place] assists only prior to or following the activity. 4-Supervision or Touching Assistance-helper provides verbal cues and/or touching/steadying and/or contact guard assistance as patient completes activity. Assistance may be provided throughout the activity or intermittently. 3-Partial/Moderate Assistance-helper does LESS THAN HALF the effort. [place] lifts, holds or supports trunk or limbs, but provides less than half the effort. 2-Substantial/Maximal Assistance-helper does MORE THAN HALF the effort. [place] lifts or holds trunk or limbs and provides more than half the effort. 0-Lwkdbpgpe-lhhiwf does ALL the effort. Patient does none of the effort to complete the activity. Or, the assistance of 2 or more helpers is required for the patient to complete the activity. If activity was not attempted, code reason: 7-Patient Refused. 9-Not Applicable-not attempted and the patient did not perform the activity before the current illness, exacerbation or injury. 10-Not Attempted due to Environmental Limitations-(lack of equipment, weather restraints, etc.). 88-Not Attempted due to Medical Conditions or Safety Concerns. Weight Bearing Right Lower Extremity: Right Full Weight Bearing Left Lower Extremity: Left Full Weight Bearing Gait Training Walk 10 feet (QC): 4 Walk 50 ft with 2 Turns(QC): 4 Walk 150 ft (QC): 4 Walking 10ft/uneven surface-QC: 4 Exercises Seated Therapy Exercises: Ankle pumps, Sit to stand, Long arc quads, Hip flexion, Kicking activity, Hamstring Curls, Glut set Treatments Spoke with sister and her with pt for family training about how the pt is with transfers, bed mobility and ambulation explaining that pt still requires one on one for safety to prevents falls. pt family were very understanding of the safety concerns with pt going home alone and were receptive to pt going to a SNF. Pt was able to ambulate 400ft with 1 rest in sitting for aprox 3-4 mins. pt requies auditory cues to aid in the reduction of shuffling gait pattern as well as VC and TV for directional changes. pt preformed sitting ther-ex in all planes of motion available with BLE 3 sets x 15 with VC and TC for correct movement of aprox 40% this day. Assessment Current Status: Good Progress PT Fdc Goals Stone Driller Helper Goals PT Fdc Goals Time Frame: Jan 17, 2023 Roll Left & Right (QC): 6 Sit to Lying (QC): 6 Lying-Sitting on Side/Bed(QC): 6 Sit to Stand (QC): 6 Chair/Qnj-aq-Dkred Xfer(QC): 6 Toilet Transfer (QC): 6 Car Transfer (QC): 6 Does the Patient Walk: Yes Walk 10 feet (QC): 6 Walk 50ft with 2 Turns (QC): 6 Walk 150 ft (QC): 6 Walking 10ft on Uneven Surface: 6 1 Step (curb) (QC): 6 4 Steps (QC): 4 12 Steps (QC): 4 Picking up an Object (QC): 6 Does the Pt use WC or Scooter?: No Wheel 50 feet with 2 turns (QC: 9 Wheel 150 feet: 9 PT Plan Problem List Problem List: Safety, Gait Treatment/Plan Treatment Plan: Continue Plan of Care Treatment Plan: Bed Mobility, Education, Functional Activity [place], Functional Strength, Group Therapy, Gait, Safety Treatment Duration: Jan 17, 2023 Frequency: At least 5 of 7 days/Wk (IRF) Estimated Hrs Per Day: 1.5 hours per day Patient and/or Family Agrees t: Yes Time Time In: 1030 Time Out: 1200 DATE: December 06, 2022 Total Billed Treatment Time: 90 Total Billed Treatment 1 FA x2 EX GT x3 Carissa Todd DOCUMENTATION CONSULTANT December 06, 2022 12:50
[2022-12-06] MEDS: TAMSULOSIN 0.4 MG (FLOMAX) CAP PO SCH (17:38)
[2022-12-06] MEDS: AtorvaSTATin TABLET 10 MG TABLET PO SCH (19:59)
[2022-12-06 20:05] VITALS: BP 107/66
[2022-12-07 07:07] VITALS: BP 118/64
--- NOTE | 2022-12-07 07:38 | PM&R Progress Note ---
Subjective HPI/CC On Admission Date Seen by Provider: December 07, 2022 Time Seen by Provider: 11:30 Subjective/Events-last exam 12/07/2022: Patient is sleeping Still with sitter No issues Pending dispo 12/06/2022: No major issues Moving around well No falls No pain 12/05/2022: Working really hard in therapy Improved overall No falls No gout pain reported BM+ 12/04/2022: No major changes Improved overall Confusion at times Fall risk 12/03/2022: Confusion noted Gout doing a bit better At high risk for NHP No pain otherwise BM+ 12/02/2022: Doing well Left great toe possible gout? PT OT initiated aggressive therapy 12/01/2022: Doing pretty well One on one sitter at bedside Confusion varies Paranoia at times Weakness At risk for NH Review of Systems General: Fatigue, Malaise Objective Exam Vital Signs Vital Signs Date Time Temp Pulse Resp B/P (MAP) Pulse Ox O2 Delivery O2 Flow Rate FiO2 12/07/22 09:00 Room Air 12/07/22 07:07 36.7 67 20 118/64 (82) 96 Capillary Refill : General Appearance: No Apparent Distress, WD/WN, Chronically ill HEENT: PERRL/EOMI, Normal ENT Inspection, Pharynx Normal Neck: Full Range of Motion, Normal Inspection, Non Tender, Supple, Carotid Bruit Respiratory: Chest Non Tender, Lungs Clear, Normal Breath Sounds, No Accessory Muscle Use, No Respiratory Distress Cardiovascular: Regular Rate, Rhythm, No Edema, No Gallop, No JVD, No Murmur, Normal Peripheral Pulses Gastrointestinal: Normal Bowel Sounds, No Organomegaly, No Pulsatile Mass, Non Tender, Soft Back: Normal Inspection, No CVA Tenderness, No Vertebral Tenderness Extremity: Normal Capillary Refill, Normal Inspection, Normal Range of Motion, Non Tender, No Calf Tenderness, No Pedal Edema Neurologic/Psychiatric: Alert, Oriented x3, Abnormal Gait, Depressed Affect, Motor Weakness (generalized weakness), Other (tremor noted) Skin: Normal Color, Warm/Dry Lymphatic: No Adenopathy Results/Procedures Lab Patient resulted labs reviewed. FIM Transfers Therapy Code Descriptions/Definitions Functional [place] Measure: 0=Not Assessed/NA 4=Minimal Assistance 1=Total Assistance 5=Supervision or Setup 2=Maximal Assistance 6=Modified [place] 3=Moderate Assistance 7=Complete IndependenceSCALE: Activities may be completed with or without assistive devices. 5-Lnsneaxdgd-xspjczw completes the activity by him/herself with no assistance from a helper. 5-Set-up or Clean-up Assistance-helper sets up or cleans up; patient completes activity. [place] assists only prior to or following the activity. 4-Supervision or Touching Assistance-helper provides verbal cues and/or touching/steadying and/or contact guard assistance as patient completes activity. Assistance may be provided throughout the activity or intermittently. 3-Partial/Moderate Assistance-helper does LESS THAN HALF the effort. [place] lifts, holds or supports trunk or limbs, but provides less than half the effort. 2-Substantial/Maximal Assistance-helper does MORE THAN HALF the effort. [place] lifts or holds trunk or limbs and provides more than half the effort. 5-Lzgvmqhmn-tckxmg does ALL the effort. Patient does none of the effort to complete the activity. Or, the assistance of 2 or more helpers is required for the patient to complete the activity. If activity was not attempted, code reason: 7-Patient Refused. 9-Not Applicable-not attempted and the patient did not perform the activity before the current illness, exacerbation or injury. 10-Not Attempted due to Environmental Limitations-(lack of equipment, weather restraints, etc.). 88-Not Attempted due to Medical Conditions or Safety Concerns. Roll Left to Right (QC): 3 Sit to Lying (QC): 3 Sit to Stand (QC): 4 Chair/Zet-ya-Thefk Xfer(QC): 4 Car Transfer (QC): 3 Gait Training Does the Patient Walk?: Yes Walk 10 feet (QC): 4 Walk 50 ft with 2 Turns(QC): 4 Walk 150 ft (QC): 4 Walking 10ft/uneven surface-QC: 4 Gait Persons Needed: 1 Gait Assistive Device: FWW Wheelchair Training Does the Pt Use a Wheelchair?: Yes Wheel 50 ft with 2 turns (QC): 3 Wheel 150 ft (QC): 3 Type of Wheelchair: Manual Stair Training #of Steps: 12 1 Step (curb) (QC): 4 4 Steps (QC): 4 12 Steps (QC): 4 Balance Picking up an Object (QC): 4 ADL-Treatment Eating (QC): 3 (Per staff rn report.) Oral Hygiene (QC): 3 Shower/Bathe Self (QC): 3 (Min A washing buttocks and drying LEs.) Upper Body Dressing (QC): 3 (Max A donning button up shirt.) Lower Body Dressing (QC): 2 (Max A donning brief/pants. Assist with threading BLEs, slight assist with pant hike.) On/Off Footwear (QC): 3 (Mod A. Pt able to doff, assist with donning.) Toileting Hygiene (QC): 2 (max A with urinal) Assessment/Plan Assessment and Plan Assess & Plan/Chief Complaint Assessment: Parkinson's disease HLP HTN BPH Paranoia Gout? Left great toe Plan: PT OT Fall risk Monitor closely 12/01/2022: Monitor closely Pain control 12/02/2022: Colchicine vs prednisone (could increase paranoia) 12/03/2022: Monitor closely NHP? 12/04/2022: Monitor closely Fall risk 12/05/2022: Increase therapy intensity 12/06/2022: Improved overall 12/07/2022: Monitor closely (1) Parkinsons disease Status: Chronic (2) BPH (benign prostatic hyperplasia) Status: Chronic (3) HLD (hyperlipidemia) Status: Chronic (4) HTN (hypertension) Status: Chronic BRANDON BUTRON DO December 07, 2022 07:38
[2022-12-07] MEDS: SINEMET 25/100 (CARBIDOPA/LEVODOPA) TAB PO SCH ×3 (09:03→20:17)
[2022-12-07] MEDS: MIRABEGRON 25 MG TAB (MYRBETRIQ) PO SCH (09:04)
[2022-12-07] MEDS: lisINopril 10 MG (PRINIVIL) TABLET PO SCH (09:04)
[2022-12-07] MEDS: PROPRANOLOL 20 MG (INDERAL) TABLET PO SCH ×2 (09:05→20:17)
[2022-12-07] MEDS: DOCUSATE SODIUM 100 MG (COLACE) CAP PO SCH ×2 (10:29→19:20)
[2022-12-07] MEDS: polyethylene glycoL POWDER 17 GM (MIRALAX) PACK PO SCH ×2 (10:29→19:21)
[2022-12-07] MEDS: SENNA W/DOCUSATE (SENOKOT S) TABLET PO SCH ×2 (10:29→20:17)
[2022-12-07] MEDS: ENOXAPARIN 40 MG/0.4 ML (LOVENOX) SYR SC SCH (13:23)
[2022-12-07] MEDS: TAMSULOSIN 0.4 MG (FLOMAX) CAP PO SCH (17:42)
[2022-12-07 19:03] VITALS: BP 111/64
[2022-12-07] MEDS: AtorvaSTATin TABLET 10 MG TABLET PO SCH (20:17)
[2022-12-08 07:22] VITALS: BP 116/66
--- NOTE | 2022-12-08 07:36 | PM&R Progress Note ---
Subjective HPI/CC On Admission Date Seen by Provider: December 08, 2022 Time Seen by Provider: 15:00 Subjective/Events-last exam 12/08/2022: No major issues Sitter is still in place Impulsive 12/07/2022: Patient is sleeping Still with sitter No issues Pending dispo 12/06/2022: No major issues Moving around well No falls No pain 12/05/2022: Working really hard in therapy Improved overall No falls No gout pain reported BM+ 12/04/2022: No major changes Improved overall Confusion at times Fall risk 12/03/2022: Confusion noted Gout doing a bit better At high risk for NHP No pain otherwise BM+ 12/02/2022: Doing well Left great toe possible gout? PT OT initiated aggressive therapy 12/01/2022: Doing pretty well One on one sitter at bedside Confusion varies Paranoia at times Weakness At risk for NH Review of Systems General: Fatigue, Malaise Objective Exam Vital Signs Vital Signs Date Time Temp Pulse Resp B/P (MAP) Pulse Ox O2 Delivery O2 Flow Rate FiO2 12/08/22 08:00 Room Air 12/08/22 07:22 36.3 73 20 116/66 (83) 93 Capillary Refill : General Appearance: No Apparent Distress, WD/WN, Chronically ill HEENT: PERRL/EOMI, Normal ENT Inspection, Pharynx Normal Neck: Full Range of Motion, Normal Inspection, Non Tender, Supple, Carotid Bruit Respiratory: Chest Non Tender, Lungs Clear, Normal Breath Sounds, No Accessory Muscle Use, No Respiratory Distress Cardiovascular: Regular Rate, Rhythm, No Edema, No Gallop, No JVD, No Murmur, Normal Peripheral Pulses Gastrointestinal: Normal Bowel Sounds, No Organomegaly, No Pulsatile Mass, Non Tender, Soft Back: Normal Inspection, No CVA Tenderness, No Vertebral Tenderness Extremity: Normal Capillary Refill, Normal Inspection, Normal Range of Motion, Non Tender, No Calf Tenderness, No Pedal Edema Neurologic/Psychiatric: Alert, Oriented x3, Abnormal Gait, Depressed Affect, Motor Weakness (generalized weakness), Other (tremor noted) Skin: Normal Color, Warm/Dry Lymphatic: No Adenopathy Results/Procedures Lab Patient resulted labs reviewed. FIM Transfers Therapy Code Descriptions/Definitions Functional [place] Measure: 0=Not Assessed/NA 4=Minimal Assistance 1=Total Assistance 5=Supervision or Setup 2=Maximal Assistance 6=Modified [place] 3=Moderate Assistance 7=Complete IndependenceSCALE: Activities may be completed with or without assistive devices. 8-Kokdjoijwz-jmwltmb completes the activity by him/herself with no assistance from a helper. 5-Set-up or Clean-up Assistance-helper sets up or cleans up; patient completes activity. [place] assists only prior to or following the activity. 4-Supervision or Touching Assistance-helper provides verbal cues and/or touching/steadying and/or contact guard assistance as patient completes activity. Assistance may be provided throughout the activity or intermittently. 3-Partial/Moderate Assistance-helper does LESS THAN HALF the effort. [place] lifts, holds or supports trunk or limbs, but provides less than half the effort. 2-Substantial/Maximal Assistance-helper does MORE THAN HALF the effort. [place] lifts or holds trunk or limbs and provides more than half the effort. 7-Tygojjssy-zzamhf does ALL the effort. Patient does none of the effort to complete the activity. Or, the assistance of 2 or more helpers is required for the patient to complete the activity. If activity was not attempted, code reason: 7-Patient Refused. 9-Not Applicable-not attempted and the patient did not perform the activity before the current illness, exacerbation or injury. 10-Not Attempted due to Environmental Limitations-(lack of equipment, weather restraints, etc.). 88-Not Attempted due to Medical Conditions or Safety Concerns. Roll Left to Right (QC): 3 Sit to Lying (QC): 3 Sit to Stand (QC): 4 Chair/Lmq-lp-Eluat Xfer(QC): 4 Car Transfer (QC): 3 Gait Training Does the Patient Walk?: Yes Walk 10 feet (QC): 4 Walk 50 ft with 2 Turns(QC): 4 Walk 150 ft (QC): 4 Walking 10ft/uneven surface-QC: 4 Gait Persons Needed: 1 Gait Assistive Device: FWW Wheelchair Training Does the Pt Use a Wheelchair?: Yes Wheel 50 ft with 2 turns (QC): 3 Wheel 150 ft (QC): 3 Type of Wheelchair: Manual Stair Training #of Steps: 12 1 Step (curb) (QC): 4 4 Steps (QC): 4 12 Steps (QC): 4 Balance Picking up an Object (QC): 4 ADL-Treatment Eating (QC): 3 (Per waitstaff captain report.) Oral Hygiene (QC): 3 Shower/Bathe Self (QC): 3 (Min A washing buttocks and drying LEs.) Upper Body Dressing (QC): 3 (Max A donning button up shirt.) Lower Body Dressing (QC): 2 (Max A donning brief/pants. Assist with threading BLEs, slight assist with pant hike.) On/Off Footwear (QC): 3 (Mod A. Pt able to doff, assist with donning.) Toileting Hygiene (QC): 2 (max A with urinal) Assessment/Plan Assessment and Plan Assess & Plan/Chief Complaint Assessment: Parkinson's disease HLP HTN BPH Paranoia Gout? Left great toe Plan: PT OT Fall risk Monitor closely 12/01/2022: Monitor closely Pain control 12/02/2022: Colchicine vs prednisone (could increase paranoia) 12/03/2022: Monitor closely NHP? 12/04/2022: Monitor closely Fall risk 12/05/2022: Increase therapy intensity 12/06/2022: Improved overall 12/07/2022: Monitor closely 12/08/2022: Monitor closely (1) Parkinsons disease Status: Chronic (2) BPH (benign prostatic hyperplasia) Status: Chronic (3) HLD (hyperlipidemia) Status: Chronic (4) HTN (hypertension) Status: Chronic BRANDON BURTON DO December 08, 2022 07:36
[2022-12-08] MEDS: DOCUSATE SODIUM 100 MG (COLACE) CAP PO SCH ×2 (08:09→19:19)
[2022-12-08] MEDS: MIRABEGRON 25 MG TAB (MYRBETRIQ) PO SCH (08:09)
[2022-12-08] MEDS: SINEMET 25/100 (CARBIDOPA/LEVODOPA) TAB PO SCH ×3 (08:09→20:19)
[2022-12-08] MEDS: PROPRANOLOL 20 MG (INDERAL) TABLET PO SCH ×2 (08:09→20:19)
[2022-12-08] MEDS: lisINopril 10 MG (PRINIVIL) TABLET PO SCH (08:09)
[2022-12-08] MEDS: polyethylene glycoL POWDER 17 GM (MIRALAX) PACK PO SCH ×2 (08:10→19:19)
[2022-12-08] MEDS: SENNA W/DOCUSATE (SENOKOT S) TABLET PO SCH ×2 (08:10→20:19)
[2022-12-08] MEDS: ENOXAPARIN 40 MG/0.4 ML (LOVENOX) SYR SC SCH (12:13)
[2022-12-08] MEDS: TAMSULOSIN 0.4 MG (FLOMAX) CAP PO SCH (17:06)
[2022-12-08 19:45] VITALS: BP 86/62
[2022-12-08] MEDS: AtorvaSTATin TABLET 10 MG TABLET PO SCH (20:19)
--- NOTE | 2022-12-09 05:21 | PM&R Progress Note ---
Subjective HPI/CC On Admission Date Seen by Provider: December 09, 2022 Time Seen by Provider: 08:30 Subjective/Events-last exam 12/09/2022: No pain reported No falls No major issues Shaved self today 12/08/2022: No major issues Sitter is still in place Impulsive 12/07/2022: Patient is sleeping Still with sitter No issues Pending dispo 12/06/2022: No major issues Moving around well No falls No pain 12/05/2022: Working really hard in therapy Improved overall No falls No gout pain reported BM+ 12/04/2022: No major changes Improved overall Confusion at times Fall risk 12/03/2022: Confusion noted Gout doing a bit better At high risk for NHP No pain otherwise BM+ 12/02/2022: Doing well Left great toe possible gout? PT OT initiated aggressive therapy 12/01/2022: Doing pretty well One on one sitter at bedside Confusion varies Paranoia at times Weakness At risk for NH Review of Systems General: Fatigue, Malaise Objective Exam Vital Signs Vital Signs Date Time Temp Pulse Resp B/P (MAP) Pulse Ox O2 Delivery O2 Flow Rate FiO2 12/09/22 09:14 Room Air 12/09/22 07:58 36.3 68 18 109/71 (84) 94 Capillary Refill : General Appearance: No Apparent Distress, WD/WN, Chronically ill HEENT: PERRL/EOMI, Normal ENT Inspection, Pharynx Normal Neck: Full Range of Motion, Normal Inspection, Non Tender, Supple, Carotid Bruit Respiratory: Chest Non Tender, Lungs Clear, Normal Breath Sounds, No Accessory Muscle Use, No Respiratory Distress Cardiovascular: Regular Rate, Rhythm, No Edema, No Gallop, No JVD, No Murmur, Normal Peripheral Pulses Gastrointestinal: Normal Bowel Sounds, No Organomegaly, No Pulsatile Mass, Non Tender, Soft Back: Normal Inspection, No CVA Tenderness, No Vertebral Tenderness Extremity: Normal Capillary Refill, Normal Inspection, Normal Range of Motion, Non Tender, No Calf Tenderness, No Pedal Edema Neurologic/Psychiatric: Alert, Oriented x3, Abnormal Gait, Depressed Affect, Motor Weakness (generalized weakness), Other (tremor noted) Skin: Normal Color, Warm/Dry Lymphatic: No Adenopathy Results/Procedures Lab Laboratory Tests 12/09/22 05:24 Patient resulted labs reviewed. FIM Transfers Therapy Code Descriptions/Definitions Functional [place] Measure: 0=Not Assessed/NA 4=Minimal Assistance 1=Total Assistance 5=Supervision or Setup 2=Maximal Assistance 6=Modified [place] 3=Moderate Assistance 7=Complete IndependenceSCALE: Activities may be completed with or without assistive devices. 3-Obolssnrek-urbsnmu completes the activity by him/herself with no assistance from a helper. 5-Set-up or Clean-up Assistance-helper sets up or cleans up; patient completes activity. [place] assists only prior to or following the activity. 4-Supervision or Touching Assistance-helper provides verbal cues and/or touching/steadying and/or contact guard assistance as patient completes activity. Assistance may be provided throughout the activity or intermittently. 3-Partial/Moderate Assistance-helper does LESS THAN HALF the effort. [place] lifts, holds or supports trunk or limbs, but provides less than half the effort. 2-Substantial/Maximal Assistance-helper does MORE THAN HALF the effort. [place] lifts or holds trunk or limbs and provides more than half the effort. 9-Xroazcafh-ympffi does ALL the effort. Patient does none of the effort to complete the activity. Or, the assistance of 2 or more helpers is required for the patient to complete the activity. If activity was not attempted, code reason: 7-Patient Refused. 9-Not Applicable-not attempted and the patient did not perform the activity before the current illness, exacerbation or injury. 10-Not Attempted due to Environmental Limitations-(lack of equipment, weather restraints, etc.). 88-Not Attempted due to Medical Conditions or Safety Concerns. Roll Left to Right (QC): 3 Sit to Lying (QC): 3 Sit to Stand (QC): 4 Chair/Ehl-fw-Cqdwr Xfer(QC): 4 Car Transfer (QC): 3 Gait Training Does the Patient Walk?: Yes Walk 10 feet (QC): 4 Walk 50 ft with 2 Turns(QC): 4 Walk 150 ft (QC): 4 Walking 10ft/uneven surface-QC: 4 Gait Persons Needed: 1 Gait Assistive Device: FWW Wheelchair Training Does the Pt Use a Wheelchair?: Yes Wheel 50 ft with 2 turns (QC): 3 Wheel 150 ft (QC): 3 Type of Wheelchair: Manual Stair Training #of Steps: 12 1 Step (curb) (QC): 4 4 Steps (QC): 4 12 Steps (QC): 4 Balance Picking up an Object (QC): 4 ADL-Treatment Eating (QC): 3 (Per staff air defense officer report.) Oral Hygiene (QC): 3 Shower/Bathe Self (QC): 3 (Min A washing buttocks and drying LEs.) Upper Body Dressing (QC): 3 (Max A donning button up shirt.) Lower Body Dressing (QC): 2 (Max A donning brief/pants. Assist with threading BLEs, slight assist with pant hike.) On/Off Footwear (QC): 3 (Mod A. Pt able to doff, assist with donning.) Toileting Hygiene (QC): 2 (max A with urinal) Assessment/Plan Assessment and Plan Assess & Plan/Chief Complaint Assessment: Parkinson's disease HLP HTN BPH Paranoia Gout? Left great toe Plan: PT OT Fall risk Monitor closely 12/01/2022: Monitor closely Pain control 12/02/2022: Colchicine vs prednisone (could increase paranoia) 12/03/2022: Monitor closely NHP? 12/04/2022: Monitor closely Fall risk 12/05/2022: Increase therapy intensity 12/06/2022: Improved overall 12/07/2022: Monitor closely 12/08/2022: Monitor closely 12/09/2022: Monitor closely (1) Parkinsons disease Status: Chronic (2) BPH (benign prostatic hyperplasia) Status: Chronic (3) HLD (hyperlipidemia) Status: Chronic (4) HTN (hypertension) Status: Chronic BRANDON BURTON DO December 09, 2022 05:21
[2022-12-09 05:55] LABS: BASOPHILS % (AUTO) 0 % (0-10); EOSINOPHILS # (AUTO) 0.1 10^3/uL (0.0-0.3); EOSINOPHILS % (AUTO) 1 % (0-10); HEMATOCRIT 42 % (40-54); HEMOGLOBIN 13.7 g/dL (13.3-17.7); LYMPHOCYTES # (AUTO) 1.3 10^3/uL (1.0-4.0); LYMPHOCYTES % (AUTO) 24 % (12-44); MEAN CORPUSCULAR HEMOGLOBIN 30 pg (25-34); MEAN CORPUSCULAR HGB CONC 33 g/dL (32-36); MEAN CORPUSCULAR VOLUME 92 fL (80-99); MEAN PLATELET VOLUME 11.7 fL (9.0-12.2); MONOCYTES # (AUTO) 0.5 10^3/uL (0.0-1.0); MONOCYTES % (AUTO) 10 % (0-12); NEUTROPHILS # (AUTO) 3.4 10^3/uL (1.8-7.8); NEUTROPHILS % (AUTO) 64 % (42-75); PLATELET COUNT 175 10^3/uL (130-400); WHITE BLOOD COUNT 5.2 10^3/uL (4.3-11.0)
[2022-12-09 06:03] LABS: ALBUMIN 3.9 GM/DL (3.2-4.5); POTASSIUM 4.3 MMOL/L (3.6-5.0)
[2022-12-09 06:04] LABS: CALCIUM 9.4 MG/DL (8.5-10.1)
[2022-12-09 06:05] LABS: TOTAL PROTEIN 6.4 GM/DL (6.4-8.2)
[2022-12-09 06:07] LABS: BILIRUBIN,TOTAL 0.5 MG/DL (0.1-1.0)
[2022-12-09 06:09] LABS: CREATININE SERUM 1.22 MG/DL (0.60-1.30)
[2022-12-09 07:58] VITALS: BP 109/71
[2022-12-09] MEDS: lisINopril 10 MG (PRINIVIL) TABLET PO SCH (08:41)
[2022-12-09] MEDS: PROPRANOLOL 20 MG (INDERAL) TABLET PO SCH ×2 (08:41→19:24)
[2022-12-09] MEDS: DOCUSATE SODIUM 100 MG (COLACE) CAP PO SCH ×2 (08:42→19:24)
[2022-12-09] MEDS: SINEMET 25/100 (CARBIDOPA/LEVODOPA) TAB PO SCH ×3 (08:42→19:24)
[2022-12-09] MEDS: MIRABEGRON 25 MG TAB (MYRBETRIQ) PO SCH (08:42)
[2022-12-09] MEDS: polyethylene glycoL POWDER 17 GM (MIRALAX) PACK PO SCH ×2 (08:42→19:24)
[2022-12-09] MEDS: SENNA W/DOCUSATE (SENOKOT S) TABLET PO SCH ×2 (08:42→19:25)
--- NOTE | 2022-12-09 08:56 | Occupational Ther Daily Note ---
OT Current Status-Daily Note Subjective Pt in ARU common area with live sitter, agreeable to OT tx. Pt denies pain. Pt attempted to tell various stories throughout tx, but had difficulty following story line, jumping from one story to another, and stories did not appear to follow a logical story line. Mental Status/Objective Patient Orientation: Person, Confused ADL-Treatment Therapy Code Descriptions/Definitions Functional [place] Measure: 0=Not Assessed/NA 4=Minimal Assistance 1=Total Assistance 5=Supervision or Setup 2=Maximal Assistance 6=Modified [place] 3=Moderate Assistance 7=Complete IndependenceSCALE: Activities may be completed with or without assistive devices. 9-Zlvqpwcmvp-dotjidx completes the activity by him/herself with no assistance from a helper. 5-Set-up or Clean-up Assistance-helper sets up or cleans up; patient completes activity. [place] assists only prior to or following the activity. 4-Supervision or Touching Assistance-helper provides verbal cues and/or touching/steadying and/or contact guard assistance as patient completes activity. Assistance may be provided throughout the activity or intermittently. 3-Partial/Moderate Assistance-helper does LESS THAN HALF the effort. [place] lifts, holds or supports trunk or limbs, but provides less than half the effort. 2-Substantial/Maximal Assistance-helper does MORE THAN HALF the effort. [place] lifts or holds trunk or limbs and provides more than half the effort. 7-Mrnwqicaf-tpvzee does ALL the effort. Patient does none of the effort to complete the activity. Or, the assistance of 2 or more helpers is required for the patient to complete the activity. If activity was not attempted, code reason: 7-Patient Refused. 9-Not Applicable-not attempted and the patient did not perform the activity before the current illness, exacerbation or injury. 10-Not Attempted due to Environmental Limitations-(lack of equipment, weather restraints, etc.). 88-Not Attempted due to Medical Conditions or Safety Concerns. Eating (QC): 5 (Set up to open containers, pt able to eat finger foods without assistance.) Oral Hygiene (QC): 4 (Supervision seated at sink.) Shower/Bathe Self (QC): 4 (CGA in stand. Min VCs for sequencing.) Upper Body Dressing (QC): 3 (Mod A overall. Pt able to doff with SBA, max A with donning. ) Lower Body Dressing (QC): 3 (Mod A overall. Pt able to doff with CGA and min VCs for safety, max A with donning. ) On/Off Footwear: 3 (Min A overall. Pt able to doff with SBA, min VCs for safety, min A with donning.) Toileting Hygiene (QC): 3 (Min A with pant hike.) Toilet Transfer (QC): 4 (CGA on/off BSC over toilet, mod VCs.) Other Treatment Pt in ARU common area, sit to stand with CGA then CGA using FWW to transfer to chair in bathroom. Pt sat at sink for grooming tasks, supervision required. Pt then transferred to SC doffed clothes, then requests to use toilet. Pt completed toileting, then transferred to SC to complete shower. Pt donned clothes as outlined above. CGA sit to stand, then CGA using FWW to transfer to recliner. Post tx, pt in recliner, call light in reach and all needs met. Live sitter present. Education OT Patient Education: Correct positioning, Energy conservation, Modified ADL techniques, Progress toward Goal/Update tx plan, Purpose of tx/functional activities, Rehab process Teaching Recipient: Patient Teaching Methods: Discussion Response to Teaching: Verbalize Understanding BIMS CAM BIMS Expression of Ideas and Wants: Difficulty Understanding Verbal Content: Usually Understands Brief Interview/Mental Status: Yes IRF DARRIAN BIMS: IRF DARRIAN BIMS Response (Comments) Value Repitition of Three Words Three 3 Recalls Socks Yes, No Cue Required 2 Recalls Blue Yes, No Cue Required 2 Recalls Bed Yes, No Cue Required 2 Year Correct 3 Month Accurate Within 5 Days 2 Day Incorrect or No Answer 0 Total 14 CAM Mental Status Change/Baseline: 1 Inattention: 1 Disorganized thinkin Altered level of consciousness: 0 OT Short Term Goals Short Term Goals Time Frame: Dec 20, 2022 Shower/bathe self: 3 Lower body dressin Putting on/taking off footwear: 3 OT Newspaper Carrier Goals Intermediate Goals Time Frame: Jan 03, 2023 Acute change in mental status: 1 Inattention: 1 Disorganized thinkin Altered level of consciousness: 0 Eating (QC): 6 (met) Oral Hygiene (QC): 6 (met) Toileting Hygiene (QC): 6 Shower/Bathe Self (QC): 6 (met) Upper Body Dressing (QC): 6 (met) Lower Body Dressing (QC): 6 (met) On/Off Footwear (QC): 6 (met) Additional Goals: 1-Demonstrate ADL Tasks, 2-Verbalize Understanding, 3- ImproveStrength/Kiar[place] 1=Demonstrate adherence to instructed precautions during ADL tasks. 2=Patient will verbalize/demonstrate understanding of assistive devices/modifications for ADL. 3=Patient will improve strength/tolerance for activity to enable patient to perform ADL's. OT Education/Plan Problem List/Assessment Assessment: Decreased Activ Tolerance, Decreased Safety Aware, Decreased UE Strength, Impaired Cognition, Impaired Funct Balance, Impaired I ADL's, Impaired Self-Care Skills, Restricted Funct UE ROM Discharge Recommendations Plan/Recommendations: Continue POC Treatment Plan/Plan of Care Patient would benefit from OT for education, treatment and training to promote independence in ADL's, mobility, safety and/or upper extremity function for ADL's. Plan of Care: ADL Retraining, Functional Mobility, Group Exercise/Act as Ind, UE Funct Exercise/Act Treatment Duration: Jan 03, 2023 Frequency: At least 5 of 7 days/Wk (IRF) Estimated Hrs Per Day: 1.5 hours per day Rehab Potential: Guarded Time Start Time: 07:30 Stop Time: 09:00 DATE: December 09, 2022 Total Time Billed (hr/min): 90 Billed Treatment Time 1, ADL 6 BRODIE READ OT December 09, 2022 08:56
--- NOTE | 2022-12-09 12:52 | Physical Therapy Daily Note ---
PT Daily Note-Current Subjective Pt in therapy commons area upon arrival and willing for therapy. pt reports no pain this day. Pain Section J - Health Conditions 1. Rarely or not at all 2. Occasionally 3. Frequently 4. Almost constantly 8. Unable to answer Pain Effect on Sleep: 2 Pain Interference with Therapy: 2 Pain Interference w/Day-to-Day: 2 Transfers SCALE: Activities may be completed with or without assistive devices. 3-Iwmzjptwwz-wnscfdc completes the activity by him/herself with no assistance from a helper. 5-Set-up or Clean-up Assistance-helper sets up or cleans up; patient completes activity. [place] assists only prior to or following the activity. 4-Supervision or Touching Assistance-helper provides verbal cues and/or touching/steadying and/or contact guard assistance as patient completes activity. Assistance may be provided throughout the activity or intermittently. 3-Partial/Moderate Assistance-helper does LESS THAN HALF the effort. [place] lifts, holds or supports trunk or limbs, but provides less than half the effort. 2-Substantial/Maximal Assistance-helper does MORE THAN HALF the effort. [place] lifts or holds trunk or limbs and provides more than half the effort. 4-Vvmcgfdrg-svtyxu does ALL the effort. Patient does none of the effort to complete the activity. Or, the assistance of 2 or more helpers is required for the patient to complete the activity. If activity was not attempted, code reason: 7-Patient Refused. 9-Not Applicable-not attempted and the patient did not perform the activity before the current illness, exacerbation or injury. 10-Not Attempted due to Environmental Limitations-(lack of equipment, weather restraints, etc.). 88-Not Attempted due to Medical Conditions or Safety Concerns. Roll Left & Right (QC): 4 Sit to Lying (QC): 4 Lying to Sitting/Side of Bed(Q: 4 Sit to Stand (QC): 4 Chair/Sog-lk-Ihxfg Xfer(QC): 4 Toilet Transfer (QC): 3 Car Transfer (QC): 3 Weight Bearing Right Lower Extremity: Right Full Weight Bearing Left Lower Extremity: Left Full Weight Bearing Gait Training Walk 10 feet (QC): 4 Walk 50 ft with 2 Turns(QC): 3 Walk 150 ft (QC): 4 Walking 10ft/uneven surface-QC: 3 Wheelchair Training Wheel 50 ft with 2 turns (QC): 9 Wheel 150 ft (QC): 9 Stair Training 1 Step (curb) (QC): 4 4 Steps (QC): 4 12 Steps (QC): 9 Treatments Pt preformed all activates for QC measurement this day. pt requires some hand over hand sequencing for car transfers and uneven surface with MAX VC. pt requires CGA for stairs and MOD VC. toilet transfers. Bed mobility is SBA with MOD VC the sequencing this day and with extrea time to process pt is able to preform. Assessment Current Status: Good Progress PT Correction Goals Control Area Operator Goals PT Correction Goals Time Frame: Jan 17, 2023 Roll Left & Right (QC): 6 Sit to Lying (QC): 6 Lying-Sitting on Side/Bed(QC): 6 Sit to Stand (QC): 6 Chair/Tup-mh-Kbczb Xfer(QC): 6 Toilet Transfer (QC): 6 Car Transfer (QC): 6 Does the Patient Walk: Yes Walk 10 feet (QC): 6 Walk 50ft with 2 Turns (QC): 6 Walk 150 ft (QC): 6 Walking 10ft on Uneven Surface: 6 1 Step (curb) (QC): 6 4 Steps (QC): 4 12 Steps (QC): 4 Picking up an Object (QC): 6 Does the Pt use WC or Scooter?: No Wheel 50 feet with 2 turns (QC: 9 Wheel 150 feet: 9 PT Plan Treatment/Plan Treatment Plan: Continue Plan of Care Treatment Plan: Bed Mobility, Education, Functional Activity Kiar[place], Functional Strength, Group Therapy, Gait, Safety Treatment Duration: Jan 17, 2023 Frequency: At least 5 of 7 days/Wk (IRF) Estimated Hrs Per Day: 1.5 hours per day Patient and/or Family Agrees t: Yes Time Time In: 1000 Time Out: 1100 DATE: December 09, 2022 Total Billed Treatment Time: 60 Total Billed Treatment 1 FA x 2 GT EX PeytonCarissa APPLICATION DEVELOPMENT LIAISON December 09, 2022 12:52
[2022-12-09] MEDS: ENOXAPARIN 40 MG/0.4 ML (LOVENOX) SYR SC SCH (13:05)
--- NOTE | 2022-12-09 15:08 | Physical Therapy Daily Note ---
PT Daily Note-Current Subjective Pt reports he is doing well this afternoon and is agreeable to PT. Pt denies pain. Pain Numeric Pain Scale: 0-No Pain Location: No Pain Reported Section J - Health Conditions 1. Rarely or not at all 2. Occasionally 3. Frequently 4. Almost constantly 8. Unable to answer Pain Effect on Sleep: 1 Pain Interference with Therapy: 1 Pain Interference w/Day-to-Day: 1 Transfers SCALE: Activities may be completed with or without assistive devices. 5-Sgqssbwakz-fsnmpjz completes the activity by him/herself with no assistance from a helper. 5-Set-up or Clean-up Assistance-helper sets up or cleans up; patient completes activity. [place] assists only prior to or following the activity. 4-Supervision or Touching Assistance-helper provides verbal cues and/or touching/steadying and/or contact guard assistance as patient completes activity. Assistance may be provided throughout the activity or intermittently. 3-Partial/Moderate Assistance-helper does LESS THAN HALF the effort. [place] lifts, holds or supports trunk or limbs, but provides less than half the effort. 2-Substantial/Maximal Assistance-helper does MORE THAN HALF the effort. [place] lifts or holds trunk or limbs and provides more than half the effort. 3-Hchbjqcgr-oadobn does ALL the effort. Patient does none of the effort to complete the activity. Or, the assistance of 2 or more helpers is required for the patient to complete the activity. If activity was not attempted, code reason: 7-Patient Refused. 9-Not Applicable-not attempted and the patient did not perform the activity before the current illness, exacerbation or injury. 10-Not Attempted due to Environmental Limitations-(lack of equipment, weather restraints, etc.). 88-Not Attempted due to Medical Conditions or Safety Concerns. Sit to Stand (QC): 4 Chair/Vwi-xy-Shezq Xfer(QC): 4 Weight Bearing Right Lower Extremity: Right Full Weight Bearing Left Lower Extremity: Left Full Weight Bearing Gait Training Does the Patient Walk?: Yes Walk 10 feet (QC): 4 Walk 50 ft with 2 Turns(QC): 4 Walk 150 ft (QC): 4 Gait Persons Needed: 1 Gait Assistive Device: FWW Wheelchair Training Does the Pt Use a Wheelchair?: No Treatments Pt completed functional transfers with SBA and Min/Mod v/c for correct hand placement. Pt ambulated 300ft and 100ft with the FWW and CGA. Pt completed seated B LE Ther Ex x 20 reps each with the red Tband. Assessment Current Status: Good Progress Pt tolerated PT well with improved ability to complete transfers and improved ambulation tolerance. Pt cont to require v/c for hand placement and safety with transfers. PT Group Home Goals Group Home Goals PT Group Home Goals Time Frame: Jan 17, 2023 Roll Left & Right (QC): 6 Sit to Lying (QC): 6 Lying-Sitting on Side/Bed(QC): 6 Sit to Stand (QC): 6 Chair/Xkc-uu-Sijax Xfer(QC): 6 Toilet Transfer (QC): 6 Car Transfer (QC): 6 Does the Patient Walk: Yes Walk 10 feet (QC): 6 Walk 50ft with 2 Turns (QC): 6 Walk 150 ft (QC): 6 Walking 10ft on Uneven Surface: 6 1 Step (curb) (QC): 6 4 Steps (QC): 4 12 Steps (QC): 4 Picking up an Object (QC): 6 Does the Pt use WC or Scooter?: No Wheel 50 feet with 2 turns (QC: 9 Wheel 150 feet: 9 PT Plan Problem List Problem List: Activity Tolerance, Functional Strength, Safety, Balance, Gait, Transfer, Bed Mobility Treatment/Plan Treatment Plan: Continue Plan of Care Treatment Plan: Bed Mobility, Education, Functional Activity Kiar[place], Functional Strength, Group Therapy, Gait, Safety Treatment Duration: December 10, 2022 Frequency: At least 5 of 7 days/Wk (IRF) Estimated Hrs Per Day: 1.5 hours per day Patient and/or Family Agrees t: Yes Safety Risks/Education Patient Education: Gait Training, Transfer Techniques, Safety Issues Teaching Recipient: Patient Teaching Methods: Demonstration, Discussion Response to Teaching: Return Demonstration, Reinforcement Needed Discharge Recommendations Therapy Discharge Recommendati: 24 Hour Supervision Equpiment Recommendations-D/C: Front Wheeled Walker Discharge Status/Home Program Plan for the pt to d/c tomorrow (12/10/22) to a SNF. Barriers to Progress Safety/carry-over Target Placement SNF Time Time In: 1330 Time Out: 1400 DATE: December 09, 2022 Total Billed Treatment Time: 30 Total Billed Treatment 30 min 1 visit GT x 1 EX x 1 MIGUEL MOTT PT December 09, 2022 15:08
[2022-12-09] MEDS: TAMSULOSIN 0.4 MG (FLOMAX) CAP PO SCH (17:00)
[2022-12-09 19:13] VITALS: BP 100/52
[2022-12-09] MEDS: AtorvaSTATin TABLET 10 MG TABLET PO SCH (19:25)
[2022-12-10] MEDS ORDERED: SENN-271 PO (05:10)
[2022-12-10] MEDS ORDERED: COLC0.6T53 PO (05:10)
[2022-12-10] MEDS ORDERED: ONDA4TAB11 PO (05:10)
[2022-12-10] MEDS ORDERED: LISI10TA25 PO (05:10)
[2022-12-10] MEDS ORDERED: ACET325T49 PO (05:10)
[2022-12-10] MEDS ORDERED: PROP60TA17 PO (05:10)
[2022-12-10] MEDS ORDERED: POLY17PO54 PO (05:10)
[2022-12-10] MEDS ORDERED: CARB1TAB32 PO (05:10)
[2022-12-10] MEDS ORDERED: MIRA25TA PO (05:10)
[2022-12-10] MEDS ORDERED: TMSL.4C PO (05:10)
[2022-12-10] MEDS ORDERED: LACT20SO2 PO (05:10)
[2022-12-10] MEDS ORDERED: LOVA20TA2 PO (05:10)
--- NOTE | 2022-12-10 05:11 | Discharge Inst-Skilled Nursing ---
Discharge Inst-Skilled NF Reconcile Patient Problems Problems Reviewed?: Yes Patient Instructions Patient Problems: Parkinson's Goal: Return home Consult/Follow Up/Orders Follow Up Appt.: PCP 1 week NH rounds Skilled NF Admit to: [facility] Certification ([facility]) I certify that [facility] services are required to be given on an inpatient basis because of the above named patient's need for residential care on a continuing basis for the conditions(s) for which he/she was receiving inpatient hospital services prior to his/her transfer to the [facility]. [facility] Facility Order: Nursing Services, [employer] Melter-Evaluate & Treat, Physical Therapy-Evaluate & Treat, Speech Language-Evaluate & Treat Oxygen Delivery Method: Room Air Discharge Diet: No Restrictions Daily Activity as Tolerated: Yes Resuscitation Status: Full Code New & Resume Previous Orders New Medications: Acetaminophen (Acetaminophen) 325 Mg Tablet 650 MG PO Q6H PRN for PAIN-MILD (1-4), #30 TAB Colchicine (Colcrys) 0.6 Mg Tablet 0.6 MG PO QID PRN for Gout, #20 TAB Lactulose (Lactulose) 20 Gram/30 Ml Solution 10 GM PO BID PRN for CONSTIPATION-2ND LINE, #240 ML Ondansetron (Ondansetron Odt) 4 Mg Tab.rapdis 4 MG PO Q6H PRN for NAUSEA/VOMITING-1ST LINE, #10 TAB Polyethylene Glycol 3350 (Polyethylene Glycol 3350) 17 Gram Powd.pack 17 GM PO BID, #60 EACH Sennosides/Docusate Sodium (Stool Softener-Laxative Tablet) 8.6 Mg-50 Mg Tablet 1 EA PO BID, #60 TAB Changed Medications: Carbidopa/Levodopa (Carbidopa-Levodopa 25-100 Tab) 25 Mg-100 Mg Tablet 1 EACH PO TID, #90 TAB (Changed from: Removed Instructions) Lisinopril (Lisinopril) 10 Mg Tablet 10 MG PO DAILY, #30 TAB (Changed from: Removed Instructions) Propranolol HCl (Propranolol HCl) 60 Mg Tablet 30 MG PO BID, #60 TAB (Changed from: Removed Instructions) Continued Medications: Lovastatin (Lovastatin) 20 Mg Tablet 20 MG PO HS, #30 TAB (This prescription has been renewed) Mirabegron (Myrbetriq) 25 Mg Tab.er.24h 25 MG PO DAILY, #30 TAB (This prescription has been renewed) Tamsulosin HCl (Flomax) 0.4 Mg Cap 0.4 MG PO DAILY, #30 CAP (This prescription has been renewed) Manuela Spivey December 10, 2022 05:10 MANUELA SPIVEY DO December 10, 2022 05:11
--- NOTE | 2022-12-10 05:11 | Discharge Summary ---
Diagnosis/Chief Complaint Date of Admission November 30, 2022 at 11:14 Date of Discharge Discharge Date: December 10, 2022 Discharge Diagnosis Assessment: Parkinson's disease HLP HTN BPH Paranoia Gout? Left great toe Plan: PT OT Fall risk Monitor closely 12/01/2022: Monitor closely Pain control 12/02/2022: Colchicine vs prednisone (could increase paranoia) 12/03/2022: Monitor closely NHP? 12/04/2022: Monitor closely Fall risk 12/05/2022: Increase therapy intensity 12/06/2022: Improved overall 12/07/2022: Monitor closely 12/08/2022: Monitor closely 12/09/2022: Monitor closely (1) Parkinsons disease Status: Chronic (2) BPH (benign prostatic hyperplasia) Status: Chronic (3) HLD (hyperlipidemia) Status: Chronic (4) HTN (hypertension) Status: Chronic Discharge Summary Discharge Physical Examination Allergies: Coded Allergies: Penicillins (Verified Allergy, Unknown, 11/24/22) Vitals & I&Os Vital Signs Date Time Temp Pulse Resp B/P (MAP) Pulse Ox O2 Delivery O2 Flow Rate FiO2 12/10/22 11:48 36.0 67 18 99/54 98 Room Air General Appearance: Alert, Oriented X3, Cooperative Respiratory: Clear to Auscultation Cardiovascular: Regular Rate Psych/Mental Status: Mental Status NL Hospital Course Was the Problem List Reviewed?: Yes Uneventful course after he was admitted from 4th floor following an episode of "freezing" from non-compliance with PD meds. Patient participated with therapy and had slow recovery. Confusion was periodic. Labs remained stable as did his vitals. No pain reported. Sitter required due to impulsiveness. No issues occurred during stay and he was sent to OR for prison care. Labs (last 24 hrs) Laboratory Tests 12/01/22 05:44: White Blood Count 5.9, Red Blood Count 5.02, Hemoglobin 15.5, Hematocrit 45, Mean Corpuscular Volume 90, Mean Corpuscular Hemoglobin 31, Mean Corpuscular Hemoglobin Concent 34, Red Cell Distribution Width 12.6, Platelet Count 170, Mean Platelet Volume 11.1, Immature Granulocyte % (Auto) 0, Neutrophils (%) (Auto) 63, Lymphocytes (%) (Auto) 24, Monocytes (%) (Auto) 10, Eosinophils (%) (Auto) 2, Basophils (%) (Auto) 1, Neutrophils # (Auto) 3.7, Lymphocytes # (Auto) 1.4, Monocytes # (Auto) 0.6, Eosinophils # (Auto) 0.1, Basophils # (Auto) 0.0, Immature Granulocyte # (Auto) 0.0, Percent Immature Platelet Fraction 4.7, Sodium Level 140, Potassium Level 3.9, Chloride Level 108H, Carbon Dioxide Level 19L, Anion Gap 13, Blood Urea Nitrogen 27H, Creatinine 1.07, Estimat Glomerular Filtration Rate 75, BUN/Creatinine Ratio 25, Glucose Level 99, Calcium Level 9.2, Corrected Calcium 9.3, Total Bilirubin 0.6, Aspartate Amino Transf (AST/SGOT) 28, Alanine Aminotransferase (ALT/SGPT) 21, Alkaline Phosphatase 68, Total Protein 7.0, Albumin 3.9 12/02/22 09:30: Erythrocyte Sedimentation Rate 13, Uric Acid 7.8H 12/09/22 05:24: White Blood Count 5.2, Red Blood Count 4.57, Hemoglobin 13.7, Hematocrit 42, Mean Corpuscular Volume 92, Mean Corpuscular Hemoglobin 30, Mean Corpuscular Hemoglobin Concent 33, Red Cell Distribution Width 12.4, Platelet Count 175, Mean Platelet Volume 11.7, Immature Granulocyte % (Auto) 0, Neutrophils (%) (Auto) 64, Lymphocytes (%) (Auto) 24, Monocytes (%) (Auto) 10, Eosinophils (%) (Auto) 1, Basophils (%) (Auto) 0, Neutrophils # (Auto) 3.4, Lymphocytes # (Auto) 1.3, Monocytes # (Auto) 0.5, Eosinophils # (Auto) 0.1, Basophils # (Auto) 0.0, Immature Granulocyte # (Auto) 0.0, Sodium Level 140, Potassium Level 4.3, Chloride Level 107, Carbon Dioxide Level 24, Anion Gap 9, Blood Urea Nitrogen 36H, Creatinine 1.22, Estimat Glomerular Filtration Rate 64, BUN/Creatinine Ratio 30, Glucose Level 81, Calcium Level 9.4, Corrected Calcium 9.5, Total Bilirubin 0.5, Aspartate Amino Transf (AST/SGOT) 23, Alanine Aminotransferase (ALT/SGPT) 15, Alkaline Phosphatase 65, Total Protein 6.4, Albumin 3.9 Pending Labs Laboratory Tests 12/01/22 05:44: White Blood Count 5.9, Red Blood Count 5.02, Hemoglobin 15.5, Hematocrit 45, Mean Corpuscular Volume 90, Mean Corpuscular Hemoglobin 31, Mean Corpuscular Hemoglobin Concent 34, Red Cell Distribution Width 12.6, Platelet Count 170, Mean Platelet Volume 11.1, Immature Granulocyte % (Auto) 0, Neutrophils (%) (Auto) 63, Lymphocytes (%) (Auto) 24, Monocytes (%) (Auto) 10, Eosinophils (%) (Auto) 2, Basophils (%) (Auto) 1, Neutrophils # (Auto) 3.7, Lymphocytes # (Auto) 1.4, Monocytes # (Auto) 0.6, Eosinophils # (Auto) 0.1, Basophils # (Auto) 0.0, Immature Granulocyte # (Auto) 0.0, Percent Immature Platelet Fraction 4.7, Sodium Level 140, Potassium Level 3.9, Chloride Level 108, Carbon Dioxide Level 19, Anion Gap 13, Blood Urea Nitrogen 27, Creatinine 1.07, Estimat Glomerular F iltration Rate 75, BUN/Creatinine Ratio 25, Glucose Level 99, Calcium Level 9.2, Corrected Calcium 9.3, Total Bilirubin 0.6, Aspartate Amino Transf (AST/SGOT) 28, Alanine Aminotransferase (ALT/SGPT) 21, Alkaline Phosphatase 68, Total Protein 7.0, Albumin 3.9 12/02/22 09:30: Erythrocyte Sedimentation Rate 13, Uric Acid 7.8 12/09/22 05:24: White Blood Count 5.2, Red Blood Count 4.57, Hemoglobin 13.7, Hematocrit 42, Mean Corpuscular Volume 92, Mean Corpuscular Hemoglobin 30, Mean Corpuscular Hemoglobin Concent 33, Red Cell Distribution Width 12.4, Platelet Count 175, Mean Platelet Volume 11.7, Immature Granulocyte % (Auto) 0, Neutrophils (%) (Auto) 64, Lymphocytes (%) (Auto) 24, Monocytes (%) (Auto) 10, Eosinophils (%) (Auto) 1, Basophils (%) (Auto) 0, Neutrophils # (Auto) 3.4, Lymphocytes # (Auto) 1.3, Monocytes # (Auto) 0.5, Eosinophils # (Auto) 0.1, Basophils # (Auto) 0.0, Immature Granulocyte # (Auto) 0.0, Sodium Level 140, Potassium Level 4.3, Chloride Level 107, Carbon Dioxide Level 24, Anion Gap 9, Blood Urea Nitrogen 36, Creatinine 1.22, Estimat Glomerular Filtration Rate 64, BUN/Creatinine Ratio 30, Glucose Level 81, Calcium Level 9.4, Corrected Calcium 9.5, Total Bilirubin 0.5, Aspartate Amino Transf (AST/SGOT) 23, Alanine Aminotransferase (ALT/SGPT) 15, Alkaline Phosphatase 65, Total Protein 6.4, Albumin 3.9 Discharge Home Medications: Active Scripts Active Colcrys (Colchicine) 0.6 Mg Tablet 0.6 Mg PO QID PRN Ondansetron Odt (Ondansetron) 4 Mg Tab.rapdis 4 Mg PO Q6H PRN Polyethylene Glycol 3350 17 Gram Powd.pack 17 Gm PO BID Stool Softener-Laxative Tablet (Sennosides/Docusate Sodium) 8.6 Mg-50 Mg Tablet 1 Ea PO BID Lactulose 20 Gram/30 Ml Solution 10 Gm PO BID PRN Acetaminophen 325 Mg Tablet 650 Mg PO Q6H PRN Lisinopril 10 Mg Tablet 10 Mg PO DAILY Carbidopa-Levodopa 25-100 Tab (Carbidopa/Levodopa) 25 Mg-100 Mg Tablet 1 Each PO TID Lovastatin 20 Mg Tablet 20 Mg PO HS Flomax (Tamsulosin HCl) 0.4 Mg Cap 0.4 Mg PO DAILY Myrbetriq (Mirabegron) 25 Mg Tab.er.24h 25 Mg PO DAILY Propranolol HCl 60 Mg Tablet 30 Mg PO BID Instructions to patient/family Please see electronic discharge instructions given to patient. Diagnosis/Problems Diagnosis/Problems (1) Parkinsons disease Status: Chronic (2) BPH (benign prostatic hyperplasia) Status: Chronic (3) HLD (hyperlipidemia) Status: Chronic (4) HTN (hypertension) Status: Chronic BRANDON BURTON DO December 10, 2022 05:11
[2022-12-10 08:00] VITALS: BP 116/74
[2022-12-10] MEDS: MIRABEGRON 25 MG TAB (MYRBETRIQ) PO SCH (08:12)
[2022-12-10] MEDS: PROPRANOLOL 20 MG (INDERAL) TABLET PO SCH (08:12)
[2022-12-10] MEDS: DOCUSATE SODIUM 100 MG (COLACE) CAP PO SCH (08:12)
[2022-12-10] MEDS: SENNA W/DOCUSATE (SENOKOT S) TABLET PO SCH (08:12)
[2022-12-10] MEDS: SINEMET 25/100 (CARBIDOPA/LEVODOPA) TAB PO SCH (08:14)
[2022-12-10] MEDS: lisINopril 10 MG (PRINIVIL) TABLET PO SCH (08:14)
[2022-12-10 09:00] VITALS: BP 99/54
[2022-12-10] MEDS: polyethylene glycoL POWDER 17 GM (MIRALAX) PACK PO SCH (10:29)
[2022-12-10 11:48] VITALS: BP 99/54
--- NOTE | 2022-12-10 14:20 | Therapy Team Discharge Summary ---
Therapy Discharge Summary Discharge Recommendations Date of Discharge December 10, 2022 at 11:45 Therapy D/C Recommendations: 24 hr Supervision Physical Therapy Pt admitted to ARU on 11/30/2022 for PD and a decline in functional mobility. Pt progressed well with PT and will be d/c to a SNF for 24hr supervision secondary to safety/cognitive issues. Pt cont to require SBA/CGA for safety issues at d/c, which lead to the pt not meeting his LTGs. D/C from PT at this time. Roll Left to Right (QC): 4 (SBA ) Sit to Lying (QC): 4 (SBA ) Lying to Sitting/Side of Bed(Q: 4 (SBA ) Sit to Stand (QC): 4 (SBA ) Chair/Gcm-id-Xncxq Xfer(QC): 4 (SBA ) Toilet Transfer (QC): 4 (SBA ) Car Transfer (QC): 4 (CGA ) Does the Patient Walk: Yes Mode of Locomotion: Walk Anticipated Mode of Locomotion: Walk Walk 10 feet (QC): 4 (CGA ) Walk 50 ft with 2 Turns(QC): 4 (CGA ) Walk 150 ft (QC): 4 (CGA ) Walking 10ft on uneven surface: 4 (CGA ) Distance: 350 feet Gait Assistive Device: FWW Does the Pt Use a Wheelchair: No Wheel 50 ft with 2 turns (QC): 9 Wheel 150 ft (QC): 9 Type of Wheelchair: N/A #of Steps: 12 (CGA ) 1 Step (curb) (QC): 4 (CGA ) 4 Steps (QC): 4 (CGA ) 12 Steps (QC): 4 (CGA ) Balance Sitting Static: Fair Balance Sitting Dynamic: Fair Balance-Standing Static: Fair Picking up an Object (QC): 4 Occupational Therapy Decreased Activ Tolerance, Decreased Safety Aware, Decreased UE Strength, Impaired Cognition, Impaired Funct Balance, Impaired I ADL's, Impaired Self-Care Skills, Restricted Funct UE ROM Eating (QC): 5 (Set up to open containers, pt able to eat finger foods without assistance.) Oral Hygiene (QC): 4 (Supervision seated at sink.) Shower/Bathe Self (QC): 4 (CGA in stand. Min VCs for sequencing.) Upper Body Dressing (QC): 3 (Mod A overall. Pt able to doff with SBA, max A with donning. ) Lower Body Dressing (QC): 3 (Mod A overall. Pt able to doff with CGA and min VCs for safety, max A with donning. ) On/Off Footwear (QC): 3 (Min A overall. Pt able to doff with SBA, min VCs for safety, min A with donning.) Toileting Hygiene (QC): 3 (Min A with pant hike.) PT Binder Coverstitch Goals Correction Goals PT Binder Coverstitch Goals Time Frame: Jan 17, 2023 Roll Left to Right (QC): 6 Sit to Lying (QC): 6 Lying-Sitting on Side/Bed(QC): 6 Sit to Stand (QC): 6 Chair/Hsg-tm-Uqpkv Xfer(QC): 6 Toilet/Commode Transfer (QC): 6 Car Transfer (QC): 6 Does the Patient Walk: Yes Walk 10 feet (QC): 6 Walk 10ft-Uneven Surface(QC): 6 Walk 50ft with 2 Turns (QC): 6 Walk 150 ft (QC): 6 Does the Pt use WC or Scooter?: No Wheel 50 feet with 2 turns (QC: 9 Wheel 150 feet: 9 1 Step (curb) (QC): 6 4 Steps (QC): 4 12 Steps (QC): 4 Picking up an Object (QC): 6 OT Correction Goals Binder Coverstitch Goals Time Frame: Jan 03, 2023 Acute change in mental status: 1 Inattention: 1 Disorganized thinkin Altered level of consciousness: 0 Eating (QC): 6 (met) Oral Hygiene (QC): 6 (met) Toileting Hygiene (QC): 6 Shower/Bathe Self (QC): 6 (met) Upper Body Dressing (QC): 6 (met) Lower Body Dressing (QC): 6 (met) On/Off Footwear (QC): 6 (met) Additional Goals: 1-Demonstrate ADL Tasks, 2-Verbalize Understanding, 3-Im proveStrength/Kiarra 1=Demonstrate adherence to instructed precautions during ADL tasks. 2=Patient will verbalize/demonstrate understanding of assistive devices/modifications for ADL. 3=Patient will improve strength/tolerance for activity to enable patient to perform ADL's. MIGUEL MOTT PT December 10, 2022 14:20
--- NOTE | 2022-12-10 14:24 | Therapy Team Discharge Summary ---
Therapy Discharge Summary Discharge Recommendations Date of Discharge December 10, 2022 at 11:45 Therapy D/C Recommendations: [facility] (TCU/[facility]) Physical Therapy Roll Left to Right (QC): 4 Sit to Lying (QC): 4 Lying to Sitting/Side of Bed(Q: 4 Sit to Stand (QC): 4 Chair/Xgw-zp-Nkpje Xfer(QC): 4 Toilet Transfer (QC): 4 Car Transfer (QC): 3 Does the Patient Walk: Yes Mode of Locomotion: Walk Anticipated Mode of Locomotion: Walk Walk 10 feet (QC): 4 Walk 50 ft with 2 Turns(QC): 4 Walk 150 ft (QC): 4 Walking 10ft on uneven surface: 3 Distance: 350 feet Gait Assistive Device: FWW Does the Pt Use a Wheelchair: No Wheel 50 ft with 2 turns (QC): 9 Wheel 150 ft (QC): 9 Type of Wheelchair: Manual #of Steps: 12 1 Step (curb) (QC): 4 4 Steps (QC): 4 12 Steps (QC): 9 Balance Sitting Static: Fair Balance Sitting Dynamic: Fair Balance-Standing Static: Fair Picking up an Object (QC): 4 Occupational Therapy Pt admitted to ARU with Parkinson's. At [facility], pt was independent with ADLs and functional mobility using a walker or cane. Upon initial evaluation, pt required min-mod A with eating and oral care, and max A with showering, UE dressing, LE dressing, footwear and toileting. OT txs focused on increasing BUE strength and activity tolerance, and increasing safety and independence with ADLs and functional mobility. Progress limited by cognition, decreased problem solving skills, and safety concerns. Pt made functional progress towards goals, but did not attain any LTGs. Pt discharged from facility to SNF, d/c from OT. Decreased Activ Tolerance, Decreased Safety Aware, Decreased UE Strength, Impaired Cognition, Impaired Funct Balance, Impaired I ADL's, Impaired Self-Care Skills, Restricted Funct UE ROM Eating (QC): 5 (Set up to open containers, pt able to eat finger foods without assistance.) Oral Hygiene (QC): 4 (Supervision seated at sink.) Shower/Bathe Self (QC): 4 (CGA in stand. Min VCs for sequencing.) Upper Body Dressing (QC): 3 (Mod A overall. Pt able to doff with SBA, max A with donning. ) Lower Body Dressing (QC): 3 (Mod A overall. Pt able to doff with CGA and min VCs for safety, max A with donning. ) On/Off Footwear (QC): 3 (Min A overall. Pt able to doff with SBA, min VCs for safety, min A with donning.) Toileting Hygiene (QC): 3 (Min A with pant hike.) PT Key Cutter Goals Group Home Goals PT Group Home Goals Time Frame: Jan 17, 2023 Roll Left to Right (QC): 6 Sit to Lying (QC): 6 Lying-Sitting on Side/Bed(QC): 6 Sit to Stand (QC): 6 Chair/Ibz-iz-Nebcl Xfer(QC): 6 Toilet/Commode Transfer (QC): 6 Car Transfer (QC): 6 Does the Patient Walk: Yes Walk 10 feet (QC): 6 Walk 10ft-Uneven Surface(QC): 6 Walk 50ft with 2 Turns (QC): 6 Walk 150 ft (QC): 6 Does the Pt use WC or Scooter?: No Wheel 50 feet with 2 turns (QC: 9 Wheel 150 feet: 9 1 Step (curb) (QC): 6 4 Steps (QC): 4 12 Steps (QC): 4 Picking up an Object (QC): 6 OT Group Home Goals Key Cutter Goals Time Frame: Jan 03, 2023 Acute change in mental status: 1 Inattention: 1 Disorganized thinkin Altered level of consciousness: 0 Eating (QC): 6 (not met) Oral Hygiene (QC): 6 (not met) Toileting Hygiene (QC): 6 (not met) Shower/Bathe Self (QC): 6 (not met) Upper Body Dressing (QC): 6 (not met) Lower Body Dressing (QC): 6 (not met) On/Off Footwear (QC): 6 (not met) Additional Goals: 1-Demonstrate ADL Tasks, 2-Verbalize Understanding, 3-ImproveStrength/Kiarra 1=Demonstrate adherence to instructed precautions during ADL tasks. 2=Patient will verbalize/demonstrate understanding of assistive devices/modifications for ADL. 3=Patient will improve strength/tolerance for activity to enable patient to perform ADL's. BRODIE READ OT December 10, 2022 14:24
== END 2022-12-10 11:45 | DRG 57 ==
PROVIDERS: ADMIT Internal Medicine; ATTEND Internal Medicine
DX: G20 Parkinson's disease (principal); F22 Delusional disorders; R41.0 Disorientation, unspecified; E78.00 Pure hypercholesterolemia, unspecified; I10 Essential (primary) hypertension; N40.0 Benign prostatic hyperplasia without lower urinary tract symptoms; F41.9 Anxiety disorder, unspecified; F32.A Depression, unspecified; R45.87 Impulsiveness; M10.9 Gout, unspecified; Z91.81 History of falling; Z79.899 Other long term (current) drug therapy; Z88.0 Allergy status to penicillin
CPT/HCPCS: 36415; 80053; 84550; 85025; 85652

== ENCOUNTER → 2022-12-18 | Outpatient (CLI) | payer MEDICARE ==
[~2022-12-18] MED LIST changes: +ACET325T49 PO; +COLC0.6T53 PO; +LACT20SO2 PO; +ONDA4TAB11 PO; +POLY17PO54 PO; +SENN-271 PO
--- NOTE | 2022-12-18 12:47 | Diagnostic Imaging Report ---
EXAMINATION: CT abdomen and pelvis without contrast. TECHNIQUE: Multiple contiguous axial images were obtained through the abdomen and pelvis without the use of intravenous contrast. All CT scans use one or more of the following dose optimizing techniques: automated exposure control, MA and/or KvP adjustment based on patient size and exam type or iterative reconstruction. HISTORY: Overactive bladder. COMPARISON: None available. FINDINGS: Limited views of the lower thorax are unremarkable. The liver is normal without focal lesion. There is no biliary ductal dilation. Gallbladder is normal. Pancreas is normal. Spleen is normal. Adrenal glands are normal. There are bilateral renal stones measuring up to 8 mm on the left. No ureteral stones. No suspicious renal lesions. There is no hydronephrosis. Urinary bladder is normal. Bowel is normal in caliber without obstruction or inflammation. No free fluid or air. No abdominal or pelvic lymphadenopathy. Aorta is normal in caliber without aneurysm. There are no suspicious osseus lesions. IMPRESSION: Bilateral nonobstructing renal stones. No ureteral stones. Dictated by: Dictated on workstation # [id number]
== END ==
LOC: RAD 10:06
PROVIDERS: ATTEND Urology
DX: N20.0 Calculus of kidney (principal); N32.81 Overactive bladder; N40.1 Benign prostatic hyperplasia with lower urinary tract symptoms
CPT/HCPCS: 74176

== ENCOUNTER 2023-02-11 12:47 | Outpatient (RCR) | payer MEDICARE | END 2023-02-17 | disposition home or self-care (01) | PROVIDERS: ATTEND Pediatrics | DX: G20 Parkinson's disease (principal) ==

== ENCOUNTER 2023-02-16 03:46 | Emergency (ER) | payer MEDICARE ==
[~2023-02-16] VITALS: Ht 183 cm; Wt 91.0 kg
[2023-02-16 03:55] VITALS: BP 141/92
[2023-02-16 04:20] LABS: BASOPHILS % (AUTO) 1 % (0-10); EOSINOPHILS # (AUTO) 0.1 10^3/uL (0.0-0.3); EOSINOPHILS % (AUTO) 2 % (0-10); HEMATOCRIT 43 % (40-54); HEMOGLOBIN 14.4 g/dL (13.3-17.7); LYMPHOCYTES # (AUTO) 1.4 10^3/uL (1.0-4.0); LYMPHOCYTES % (AUTO) 30 % (12-44); MEAN CORPUSCULAR HEMOGLOBIN 31 pg (25-34); MEAN CORPUSCULAR HGB CONC 33 g/dL (32-36); MEAN CORPUSCULAR VOLUME 92 fL (80-99); MEAN PLATELET VOLUME 10.2 fL (9.0-12.2); MONOCYTES # (AUTO) 0.5 10^3/uL (0.0-1.0); MONOCYTES % (AUTO) 11 % (0-12); NEUTROPHILS # (AUTO) 2.6 10^3/uL (1.8-7.8); NEUTROPHILS % (AUTO) 56 % (42-75); PLATELET COUNT 147 10^3/uL (130-400); WHITE BLOOD COUNT 4.7 10^3/uL (4.3-11.0)
--- NOTE | 2023-02-16 04:21 | ED General ---
General Chief Complaint: General Problems/Pain Stated Complaint: HALLUCINATIONS,COMBATIVE,PARKINSONS Nursing Triage Note: Pt presents with c/o parkinsons complications. Pt had episodes yesterday of halucinations and walking out of the facility he lives in. Pt reports he's not been sleeping much for the past couple of weeks. Staff at facility requesting he be evaluated. Source of Information: Patient (LIMITED HISTORIAN WITH SOME CONFUSION), [facility] Records, Old Records History of Present Illness Date Seen by Provider: Feb 16, 2023 Time Seen by Provider: 03:50 Initial Comments PT ARRIVES VIA EMS FROM [facility] EMS WAS CALLED BY STAFF OF [facility] FOR PT WITH PARKINSON'S. YESTERDAY, PT WANDERED OUTSIDE THE FACILITY, AND HAS BEEN HAVING HALLUCINATIONS--THIS OCCURRED YESTERDAY WAS REPORTED TO EMS THAT PT HAS ONLY BEEN SLEEPING AN HOUR OR TWO A DAY FOR THE LAST COUPLE OF WEEKS ON ARRIVAL PT IS AWAKE AND ALERT, ORIENTED TO SELF AND PLACE HE DENIES ANY PHYSICAL COMPLAINTS HE DENIES ANY RECENT FALL OR INJURY DENIES RECENT ILLNESS HE DOES STATE ON ARRIVAL THAT EVENTS HAPPENED YESTERDAY WHEN I ASKED HIM WHAT HAPPENED, HE FIRST SAYS "THIS ISN'T GONNA MAKE MUCH SENSE" AND PROCEEDS TO TALK AT LENGTH AND RAMBLES ON SOMEWHAT NON-SENSICALLY HE STATES HE DID LEAVE THE FACILITY AND HE WAS WITH HIS DAD--BUT THEN IMMEDIATELY AFTERWARD HE ALSO STATES THAT HE KNOWS HIS DAD IS , THEN PROCEEDS TO TALK ABOUT GOING TO A FRIEND'S HOUSE, THEN TALKING ABOUT WELL WATER, AND GOING DOWN THE WELL HOLE, AND THEN TALKS ABOUT COWS, AND CONTINUES TO RAMBLE ON AND ON NON-SENSICALLY. PT DOES STATE HE WAS ADMITTED HERE IN NOVEMBER ( WHICH HE WAS ) HE WAS ADMITTED HERE AT THAT TIME FOR EPISODES OF CONFUSION AND REFUSING TO TAKE HIS PARKINSON'S MEDICATIONS HE KNOWS THAT DR. GRAVES IS HIS DR AND STATES HER HANDS ARE ALWAYS VERY COLD. PCP: DR. GRAVES Allergies and Home Medications Allergies Coded Allergies: Penicillins (Verified Allergy, Unknown, 11/24/22) Patient Home Medication List Home Medication List Reviewed: Yes Acetaminophen (Acetaminophen) 325 Mg Tablet, 650 MG PO Q6H PRN for PAIN-MILD (1- 4) Prescribed by: BRANDON BURTON on 12/10/22 0510 Carbidopa/Levodopa (Carbidopa-Levodopa 25-100 Tab) 25 Mg-100 Mg Tablet, 1 EACH PO TID Prescribed by: BRANDON BURTON on 12/10/22509 Colchicine (Colcrys) 0.6 Mg Tablet, 0.6 MG PO QID PRN for Gout Prescribed by: BRANDON BURTON on 12/10/22509 Lactulose (Lactulose) 20 Gram/30 Ml Solution, 10 GM PO BID PRN for CONSTIPATION- 2ND LINE Prescribed by: BRANDON BURTON on 12/10/22509 Lisinopril (Lisinopril) 10 Mg Tablet, 10 MG PO DAILY Prescribed by: BRANDON BURTON on 12/10/22509 Lovastatin (Lovastatin) 20 Mg Tablet, 20 MG PO HS Prescribed by: BRANDON BURTON on 12/10/22509 Mirabegron (Myrbetriq) 25 Mg Tab.er.24h, 25 MG PO DAILY Prescribed by: BRANDON BURTON on 12/10/22509 Ondansetron (Ondansetron Odt) 4 Mg Tab.rapdis, 4 MG PO Q6H PRN for NAUSEA/VOMITING-1ST LINE Prescribed by: BRANDON BURTON on 12/10/22509 Polyethylene Glycol 3350 (Polyethylene Glycol 3350) 17 Gram Powd.pack, 17 GM PO BID Prescribed by: BRANDON BURTON on 12/10/22509 Propranolol HCl (Propranolol HCl) 60 Mg Tablet, 30 MG PO BID Prescribed by: BRANDON BURTON on 12/10/22509 Sennosides/Docusate Sodium (Stool Softener-Laxative Tablet) 8.6 Mg-50 Mg Tablet, 1 EA PO BID Prescribed by: BRANDON BURTON on 12/10/22509 Tamsulosin HCl (Flomax) 0.4 Mg Cap, 0.4 MG PO DAILY Prescribed by: BRANDON BURTON on 12/10/22509 Review of Systems Review of Systems Constitutional: no symptoms reported EENTM: no symptoms reported Respiratory: no symptoms reported Cardiovascular: no symptoms reported Gastrointestinal: no symptoms reported Genitourinary: no symptoms reported Musculoskeletal: no symptoms reported Skin: no symptoms reported Psychiatric/Neurological: See HPI Hematologic/Lymphatic: No Symptoms Reported Immunological/Allergic: no symptoms reported Past Jgmjxou-Lohdms-Zzmcbj Hx Past Medical History Surgery/Hospitalization HX: PARKINSON'S, BPH, HIGH CHOLESTEROL, HTN, PARANOIA, CONFUSION, DELIRIUM. Respiratory: No Cardiac: Yes High Cholesterol, Hypertension Neurological: Yes (CONFUSION/DELIRIUM) Parkinson's Disease Genitourinary: Yes Benign Prostatic Hyperpl, Prostate Problems Gastrointestinal: Yes Chronic Constipation HEENT: Yes (GLASSES) Physical Exam Vital Signs Vital Signs - First Documented 02/16/23 03:55 Temp 36.5 Pulse 65 Resp 16 B/P (MAP) 141/92 (108) Capillary Refill : Less Than 3 Seconds Height, Weight, BMI Height: '" Weight: lbs. oz. kg; 27.00 BMI Method: General Appearance: No Apparent Distress, WD/WN, Other (PT IS COOPERATIVE AND PLEASANT. ) HEENT: PERRL/EOMI Neck: Normal Inspection Respiratory: Normal Breath Sounds, No Accessory Muscle Use, No Respiratory Distress Cardiovascular: Regular Rate, Rhythm, No Edema, No JVD, No Murmur, Normal Peripheral Pulses Gastrointestinal: Non Tender, Soft Extremity: Normal Capillary Refill, Normal Inspection, No Pedal Edema Neurologic/Psychiatric: Alert, No Motor/Sensory Deficits, counter roller II-XII Norm as Tested, Other (RESTING TREMOR OF HANDS/ARMS AND ALSO SOME TREMOR TO LOWER JAW. HE IS ORIENTED TO SELF AND PLACE, SOMEWHAT ORIENTED TO TIME AND SITUATION, BUT IS ALSO CONFUSED AND TALKS NON-SENSICALLY AT TIMES. SPEECH IS CLEAR. ) Skin: Normal Color, Warm/Dry, Other (NO EXTERNAL EVIDENCE OF TRAUMA) Progress/Results/Core Measures Suspected Sepsis SIRS Temperature: Pulse: 65 Respiratory Rate: 16 Laboratory Tests 02/16/23 04:10: White Blood Count 4.7 Blood Pressure 141 /92 Mean: 108 Laboratory Tests 02/16/23 04:10: Creatinine 1.19, Platelet Count 147, Total Bilirubin 0.8 Results/Orders Lab Results Laboratory Tests Test 02/16/23 04:10 02/16/23 04:58 Range/Units White Blood Count 4.7 4.3-11.0 10^3/uL Red Blood Count 4.68 4.30-5.52 10^6/uL Hemoglobin 14.4 13.3-17.7 g/dL Hematocrit 43 40-54 % Mean Corpuscular Volume 92 80-99 fL Mean Corpuscular Hemoglobin 31 25-34 pg Mean Corpuscular Hemoglobin Concent 33 32-36 g/dL Red Cell Distribution Width 13.7 10.0-14.5 % Platelet Count 147 130-400 10^3/uL Mean Platelet Volume 10.2 9.0-12.2 fL Immature Granulocyte % (Auto) 0 % Neutrophils (%) (Auto) 56 42-75 % Lymphocytes (%) (Auto) 30 12-44 % Monocytes (%) (Auto) 11 0-12 % Eosinophils (%) (Auto) 2 0-10 % Basophils (%) (Auto) 1 0-10 % Neutrophils # (Auto) 2.6 1.8-7.8 10^3/uL Lymphocytes # (Auto) 1.4 1.0-4.0 10^3/uL Monocytes # (Auto) 0.5 0.0-1.0 10^3/uL Eosinophils # (Auto) 0.1 0.0-0.3 10^3/uL Basophils # (Auto) 0.0 0.0-0.1 10^3/uL Immature Granulocyte # (Auto) 0.0 0.0-0.1 10^3/uL Sodium Level 142 135-145 MMOL/L Potassium Level 4.2 3.6-5.0 MMOL/L Chloride Level 107 98-107 MMOL/L Carbon Dioxide Level 27 21-32 MMOL/L Anion Gap 8 5-14 MMOL/L Blood Urea Nitrogen 12 7-18 MG/DL Creatinine 1.19 0.60-1.30 MG/DL Estimat Glomerular Filtration Rate 66 BUN/Creatinine Ratio 10 Glucose Level 81 70-105 MG/DL Calcium Level 9.4 8.5-10.1 MG/DL Corrected Calcium 9.4 8.5-10.1 MG/DL Magnesium Level 1.9 1.6-2.4 MG/DL Total Bilirubin 0.8 0.1-1.0 MG/DL Aspartate Amino Transf (AST/SGOT) 17 5-34 U/L Alanine Aminotransferase (ALT/SGPT) 9 0-55 U/L Alkaline Phosphatase 61 40-136 U/L Total Protein 6.3 L 6.4-8.2 GM/DL Albumin 4.0 3.2-4.5 GM/DL TSH [place] Testing 2.08 0.35-4.94 UIU/ML Serum Alcohol < 10 <10 MG/DL Influenza Type A (RT-PCR) Not Detected Not Detecte Influenza Type B (RT-PCR) Not Detected Not Detecte SARS-CoV-2 RNA (RT-PCR) Not Detected Not Detecte Urine Color YELLOW Urine Clarity CLEAR Urine pH 7.0 5-9 Urine Specific [place] <=1.005 1.016-1.022 Urine Protein NEGATIVE NEGATIVE Urine Glucose (UA) NEGATIVE NEGATIVE Urine Ketones NEGATIVE NEGATIVE Urine Nitrite NEGATIVE NEGATIVE Urine Bilirubin NEGATIVE NEGATIVE Urine Urobilinogen 0.2 < = 1.0 MG/DL Urine Leukocyte Esterase NEGATIVE NEGATIVE Urine RBC (Auto) NEGATIVE NEGATIVE Urine RBC NONE /HPF Urine WBC NONE /HPF Urine Crystals NONE /LPF Urine Bacteria NEGATIVE /HPF Urine Casts NONE /LPF Urine Mucus NEGATIVE /LPF Urine Culture Indicated NO Urine Opiates Screen NEGATIVE NEGATIVE Urine Oxycodone Screen NEGATIVE NEGATIVE Urine Methadone Screen NEGATIVE NEGATIVE Urine Propoxyphene Screen NEGATIVE NEGATIVE Urine Barbiturates Screen NEGATIVE NEGATIVE Ur Tricyclic Antidepressants Screen NEGATIVE NEGATIVE Urine Phencyclidine Screen NEGATIVE NEGATIVE Urine Amphetamines Screen NEGATIVE NEGATIVE Urine Methamphetamines Screen NEGATIVE NEGATIVE Urine Benzodiazepines Screen NEGATIVE NEGATIVE Urine Cocaine Screen NEGATIVE NEGATIVE Urine Cannabinoids Screen NEGATIVE NEGATIVE My Orders Orders - DAVINA ALMANZAR DO Ed Iv/Invasive Line Start (02/16/23 03:51) Monitor-Rhythm Ecg Trace Only (02/16/23 03:51) Alcohol (02/16/23 03:51) Cbc With Automated Diff (02/16/23 03:51) Comprehensive Metabolic Panel (02/16/23 03:51) Drug Screen Stat (Urine) (02/16/23 03:51) Magnesium (02/16/23 03:51) Thyroid Analyzer (02/16/23 03:51) Ua Culture If Indicated (02/16/23 03:51) Ed Iv/Invasive Line Start (02/16/23 03:51) Chest 1 View, Ap/Pa Only (02/16/23 04:05) Covid 19 Inhouse Test (02/16/23 04:05) Influenza A And B By Pcr (02/16/23 04:05) Vital Signs/I&O 02/16/23 03:55 Temp 36.5 Pulse 65 Resp 16 B/P (MAP) 141/92 (108) Capillary Refill : Less Than 3 Seconds Blood Pressure Mean: 108 Progress Note : Progress Note VITALS ON ARRIVAL: TEMP 36.5, HR 65, RR 16, BP 141/92, O2 SAT 965 ON ROOM AIR CBC IS NORMAL CMP IS NORMAL UA IS CLEAR UDS AND ETOH NEGATIVE COVID/FLU TESTS NEGATIVE CXR IS UNREMARKABLE PT REMAINS QUIET AND COOPERATIVE THROUGHOUT ER STAY HE IS ORIENTED TO SELF, PLACE, MONTH, KNOWS WHY HE IS HERE. HE DOES HAVE EPISODES WHERE HE TALKS SOMEWHAT NON-SENSICALLY BUT THEN HE ALSO TALKS ABOUT HOW HE KNOWS THAT WHAT HE THINKS OR SEES IS NOT REAL/NOT CORRECT. HE ALSO STATES THAT HE DREAMS SOMETIMES BUT THE DREAMS SEEM SO REAL, BUT HE KNOWS THEY ARE NOT REAL. HE IS ABLE TO TELL ME ABOUT HIS FAMILY AND WHERE THEY LIVE AND WHEN THEY VISITED HIM LAST AND WHAT THEY DID. HE IS ABLE TO TALK ABOUT HIS FRIEND CELESTE (A MALE) WHO BROUGHT HIM TO ER LAST TIME PT IS CLEARED MEDICALLY. RN HAS CONTACTED STAFF AT [facility] AND ADVISED THEM HE WOULD BE GOING BACK TO FACILITY THERE IS NO INDICATION FOR ADMIT. Diagnostic Imaging Comments CXR--NO ACUTE PROCESS, PENDING RADIOLOGIST REVIEW Reviewed: Reviewed by Me Departure Impression Primary Impression: Parkinsons disease Additional Impression: POSSIBLE PARKINSON'S DEMENTIA Disposition: HOME, SELF-CARE Condition: Stable Departure-Patient Inst. Decision time for Depature: 05:30 Referrals: JIN GRAVES DO (PCP) Primary Care Physician [facility] (Family) Primary Care Physician Patient Instructions: Parkinson Disease (DC) Add. Discharge Instructions: CONTINUE YOUR REGULAR MEDICATIONS PRESCRIBED FOLLOW UP WITH DR. GRAVES FOR FURTHER CARE All discharge instructions reviewed with patient and/or family. Voiced understanding. DAVINA ALMANZAR DO Feb 16, 2023 04:21
[2023-02-16 04:29] LABS: CHLORIDE 107 MMOL/L (98-107); POTASSIUM 4.2 MMOL/L (3.6-5.0); SODIUM 142 MMOL/L (135-145)
[2023-02-16 04:30] LABS: CALCIUM 9.4 MG/DL (8.5-10.1)
[2023-02-16 04:32] LABS: GLUCOSE 81 MG/DL (70-105); TOTAL PROTEIN 6.3 GM/DL (6.4-8.2)
[2023-02-16 04:33] LABS: BILIRUBIN,TOTAL 0.8 MG/DL (0.1-1.0); CARBON DIOXIDE 27 MMOL/L (21-32)
[2023-02-16 04:35] LABS: ALKALINE PHOSPHATASE 61 U/L (40-136); CREATININE SERUM 1.19 MG/DL (0.60-1.30); GFR ESTIMATED 66
[2023-02-16 04:36] LABS: BUN/CREATININE RATIO 10
[2023-02-16 04:38] LABS: ALANINE AMINOTRANSFERASE 9 U/L (0-55); MAGNESIUM 1.9 MG/DL (1.6-2.4)
[2023-02-16 04:58] LABS: TSH (THYROID ANALYZER) 2.08 UIU/ML (0.35-4.94)
[2023-02-16 05:09] LABS: BILIRUBIN,URINE NEGATIVE (NEGATIVE); CLARITY,URINE CLEAR; COLOR,URINE YELLOW; GLUCOSE, URINE (UA) NEGATIVE (NEGATIVE); KETONES,URINE NEGATIVE (NEGATIVE); LEUKOCYTE ESTERASE ,URINE NEGATIVE (NEGATIVE); NITRITE,URINE NEGATIVE (NEGATIVE); PROTEIN,URINE NEGATIVE (NEGATIVE)
[2023-02-16 05:26] LABS: AMPHETAMINE SCREEN, URINE NEGATIVE (NEGATIVE); BACTERIA,URINE NEGATIVE /HPF; BARBITURATE SCREEN URINE NEGATIVE (NEGATIVE); BENZODIAZEPINES SCREEN URINE NEGATIVE (NEGATIVE); CANNABINOID SCREEN, URINE NEGATIVE (NEGATIVE); COCAINE SCREEN URINE NEGATIVE (NEGATIVE); METHADONE STAT NEGATIVE (NEGATIVE); OPIATE SCREEN URINE NEGATIVE (NEGATIVE); OXYCODONE STAT NEGATIVE (NEGATIVE); PROPOXYPHENE STAT NEGATIVE (NEGATIVE); TRICYCLIC ANTIDEPRESSANTS SCRE NEGATIVE (NEGATIVE)
--- NOTE | 2023-02-16 07:56 | Diagnostic Imaging Report ---
INDICATION: Altered mental status, confusion. COMPARISON: 11/23/2022 TECHNIQUE: Single radiograph of the chest dated 02/16/2023. FINDINGS: The cardiac silhouette is within normal limits in size. No significant pulmonary vascular congestion. The lungs are clear of focal pulmonary opacity. No pleural effusion. No pneumothorax. No acute osseous abnormality. IMPRESSION: No acute cardiopulmonary abnormality. Agree with preliminary interpretation. Dictated by: Dictated on workstation # [id number]
== END 2023-02-16 06:33 | disposition home or self-care (01) ==
LOC: EDUNIT# 03:46 → ER 03:47
DX: G20 Parkinson's disease (principal); Z20.822 Contact with and (suspected) exposure to COVID-19
CPT/HCPCS: 71045; 80053; 80306; 81000; 83735; 84443; 85025; 87636; 93041; 99284; G0480; 36415; 80320

== ENCOUNTER 2023-02-18 13:01 | Outpatient (RCR) | payer MEDICARE | END 2023-02-21 15:04 | disposition home or self-care (01) | PROVIDERS: ATTEND Pediatrics | DX: G20 Parkinson's disease (principal); I10 Essential (primary) hypertension ==